=== PATIENT | female | born 1955 | race Caucasian/White ===

== ENCOUNTER → 2016-02-29 | Outpatient (CLI) | payer BC ==
[~2016-02-29] MED LIST: DIPH-296 PO; FEXO5TAB2 PO; METO25TA3 PO; NTRGSL/4 UT; PANT40TA PO; SIMV20TA2 PO
--- NOTE | 2016-03-01 12:41 | MAMMOGRAPHY REPORT ---
BILATERAL DIGITAL SCREENING MAMMOGRAM TOMOSYNTHESIS WITH CAD: 02/29/2016 CLINICAL HISTORY: Routine screening. Patient has no complaints. TECHNIQUE: Breast tomosynthesis in addition to standard 2D mammography was performed. Current study was also evaluated with a Computer Aided Detection (CAD) system. COMPARISON: Comparison is made to exams dated: 02/26/2015 mammogram, 09/17/2013 ultrasound, 09/17/2013 mammogram, 03/07/2013 ultrasound, 03/07/2013 mammogram, and 09/13/2012 mammogram - [facility]. BREAST COMPOSITION: There are scattered areas of fibroglandular density in both breasts. FINDINGS: There are benign-appearing coarse and rim calcifications bilaterally. A 9 mm mass in the upper outer posterior right breast is unchanged in size based on prior mammograms dating back to , and also likely 2006. With greater than 5 years of stability it is considered benign. The re are stable asymmetries in the medial left breast and medial right breast. No new suspicious mass , architectural distortion or cluster of microcalcifications is seen. IMPRESSION: ACR BI-RADS CATEGORY 1: NEGATIVE There is no mammographic evidence of malignancy. A 1 year screening mammogram is recommended. The p atient will receive written notification of the results. Approximately 10% of breast cancers are not detected with mammography. A negative mammographic repor t should not delay biopsy if a clinically suggestive mass is present. Jen Rock M.D. ay/:02/29/2016 21:51:36 Melter Supervisor [employer]: Carmen Mitchell, [facility] letter sent: Normal 1/2 BI-RADS Code: ACR BI-RADS Category 1: Negative
== END | disposition home or self-care (01) ==
LOC: C.MAMM 14:34
PROVIDERS: ATTEND Obstetrics & Gynecology
DX: Z12.31 Encounter for screening mammogram for malignant neoplasm of breast (principal)

== ENCOUNTER → 2016-06-21 | Outpatient (CLI) | payer BC ==
[2016-06-21 09:45] LABS: CALCIUM 9.1 mg/dl (8.5-10.1)
[2016-06-21 09:49] LABS: ALT/SGPT 27 U/L (12-78); AST/SGOT 8 U/L (15-37); BLOOD UREA NITROGEN 11 mg/dl (7-18); BUN/CREATININE RATIO 21.3 (10-20); CARBON DIOXIDE 27 mmol/L (21-32); CHLORIDE 106 mmol/L (98-107); CHOLESTEROL 113 mg/dl (0-200); CREATININE 0.52 mg/dl (0.60-1.20); GLUCOSE 96 mg/dl (70-99); MAGNESIUM 2.4 mg/dl (1.8-2.4); SODIUM 143 mmol/L (136-145); TRIGLYCERIDES 70 mg/dl (0-150); VERY LOW DENSITY LIPOPROT CALC 14 mg/dl
[2016-06-21 09:59] LABS: ALB/GLOB RATIO 1.7 (0.9-2); ALKALINE PHOSPHATASE 68 U/L (45-117); CHOLESTEROL/HDL RATIO 1.8; HDL CHOLESTEROL 64 mg/dl; LDL CHOLESTEROL CALCULATED 35 mg/dl
== END | disposition home or self-care (01) ==
LOC: C.LAB1850 07:02
PROVIDERS: ATTEND Nurse Practitioner Adult Health
DX: Z00.00 Encounter for general adult medical examination without abnormal findings (principal); Z11.59 Encounter for screening for other viral diseases; E78.5 Hyperlipidemia, unspecified; I25.10 Atherosclerotic heart disease of native coronary artery without angina pectoris; I10 Essential (primary) hypertension; Z79.899 Other long term (current) drug therapy; Z51.81 Encounter for therapeutic drug level monitoring

== ENCOUNTER → 2017-04-14 | Outpatient (CLI) | payer BC ==
[~2017-04-14] MED LIST changes: -METO25TA3 PO; +METO25TA4 PO
--- NOTE | 2017-04-17 08:07 | MAMMOGRAPHY REPORT ---
BILATERAL DIGITAL SCREENING MAMMOGRAM TOMOSYNTHESIS WITH CAD: 04/14/2017 CLINICAL HISTORY: Routine screening. Patient has no complaints. TECHNIQUE: Breast tomosynthesis in addition to standard 2D mammography was performed. Current study was also evaluated with a Computer Aided Detection (CAD) system. COMPARISON: Comparison is made to exams dated: 02/29/2016 mammogram, 02/26/2015 mammogram, 09/17/2013 ult rasound, 09/17/2013 mammogram, 03/07/2013 ultrasound, and 03/07/2013 ultrasound - [facility]. BREAST COMPOSITION: There are scattered areas of fibroglandular density in both breasts. FINDINGS: A circumscribed and lobulated 10 mm mass in the upper outer posterior right breast appears stable in size dating back to at least 2007, therefore likely benign. There are new coarse calcifica tions associated with the mass, suggesting it may represent a benign degenerating fibroadenoma. No n ew suspicious mass, architectural distortion or cluster of suspicious microcalcifications is seen. IMPRESSION: ACR BI-RADS CATEGORY 1: NEGATIVE There is no mammographic evidence of malignancy. A 1 year screening mammogram is recommended. The pa tient will receive written notification of the results. Approximately 10% of breast cancers are not detected with mammography. A negative mammographic report should not delay biopsy if a clinically suggestive mass is present. Jen Rock M.D. ay/:04/14/2017 16:49:23 Rotary Helper: Carmen CARBAJAL(Dc)(Venu), [facility] letter sent: Normal 1/2 BI-RADS Code: ACR BI-RADS Category 1: Negative
== END | disposition home or self-care (01) ==
LOC: C.MAMM 09:50
PROVIDERS: ATTEND Obstetrics & Gynecology
DX: Z12.31 Encounter for screening mammogram for malignant neoplasm of breast (principal)

== ENCOUNTER → 2017-09-19 | Outpatient (CLI) | payer BC ==
[2017-09-19 09:36] LABS: BASO % 0.5 %; BASO ABS # 0.02 K/uL (0-0.2); EOS % 2.6 %; EOS ABS # 0.11 K/uL (0-0.5); HEMATOCRIT 40.4 % (37-47); HEMOGLOBIN 12.6 g/dL (12.0-16.0); IG# 0.01 K/uL (0.00-0.02); LYMPH % 32.8 %; LYMPH ABS # 1.37 K/uL (1.2-3.4); MEAN CELL VOLUME 72.9 fL (80-100); MEAN CORPUSCULAR HEMOGLOBIN 22.7 pg (25-34); MEAN CORPUSCULAR HGB CONC 31.2 g/dl (32-36); MONO % 10.3 %; MONO ABS # 0.43 K/uL (0.11-0.59); NEUT % 53.6 %; NEUT ABS # 2.24 K/uL (1.4-6.5); PLATELET COUNT 190 K/uL (130-400); RED CELL DISTRIBUTION WIDTH CV 13.8 % (11.5-14.5); RED CELL DISTRIBUTION WIDTH SD 36.5 fL (36.4-46.3); WHITE BLOOD COUNT 4.18 K/uL (4.8-10.8)
== END | disposition home or self-care (01) ==
LOC: C.LAB1850 07:12
PROVIDERS: ATTEND Internal Medicine Cardiovascular Disease
DX: D64.9 Anemia, unspecified (principal); I25.10 Atherosclerotic heart disease of native coronary artery without angina pectoris

== ENCOUNTER 2021-05-21 05:08 | Observation (INO) ==
--- NOTE | 2021-04-27 15:15 | PAT Medication Instructions ---
Medication Instructions Date of Service April 27, 2021 Home Medications Medication Instructions Recorded atorvastatin 10 mg tablet 10 mg PO HS #90 tab 09/28/20 pantoprazole 40 mg tablet,delayed 40 mg PO QAM #90 tab 10/12/20 release metoprolol succinate 25 mg 12.5 mg PO HS #45 tab 10/19/20 tablet,extended release 24 hr lifitegrast 5 % eye drops in a dropperette (Xiidra) 1 drp OPHTHALMIC (EYE) BID mecobalamin (vitamin B12) 1,000 mcg disintegrating tablet,sublingual 1,000 mcg PO 3XWK atorvastatin 10 mg tablet 10 mg PO HS cholecalciferol (vitamin D3) 25 mcg (1,000 unit) capsule 25 mcg PO QAM pantoprazole 40 mg tablet,delayed release 40 mg PO QAM metoprolol succinate 25 mg tablet,extended release 24 hr 12.5 mg PO HS ferrous sulfate 325 mg (65 mg iron) tablet (iron) 325 mg PO 3XWK azelastine 205.5 mcg (0.15 %) nasal spray 2 spray INTRANASAL HS cholestyramine-aspartame 4 gram oral powder (Cholestyramine Light) 4 g PO QAM clopidogrel 75 mg tablet 75 mg PO QAM dicyclomine 10 mg capsule 10 mg PO HS ASK your prescriber and surgeon clopidogrel 75 mg tablet 75 mg PO QAM (must be off Plavix for at least 7 days in order to get spinal anesthesia) STOP taking 48 hours before surgery cholestyramine-aspartame 4 gram oral powder (Cholestyramine Light) 4 g PO QAM DO NOT take the morning of surgery mecobalamin (vitamin B12) 1,000 mcg disintegrating tablet,sublingual 1,000 mcg PO 3XWK cholecalciferol (vitamin D3) 25 mcg (1,000 unit) capsule 25 mcg PO QAM ferrous sulfate 325 mg (65 mg iron) tablet (iron) 325 mg PO 3XWK Take morning of surgery With a small sip of water, OTHERWISE NOTHING TO EAT OR DRINK AFTER MIDNIGHT: lifitegrast 5 % eye drops in a dropperette (Xiidra) 1 drp OPHTHALMIC (EYE) BID pantoprazole 40 mg tablet,delayed release 40 mg PO QAM Take evening before surgery lifitegrast 5 % eye drops in a dropperette (Xiidra) 1 drp OPHTHALMIC (EYE) BID atorvastatin 10 mg tablet 10 mg PO HS metoprolol succinate 25 mg tablet,extended release 24 hr 12.5 mg PO HS azelastine 205.5 mcg (0.15 %) nasal spray 2 spray INTRANASAL HS dicyclomine 10 mg capsule 10 mg PO HS Other Notes If you have any questions please call us at [phone] or [phone] or [phone] or [phone]
--- NOTE | 2021-05-03 08:43 | Anesthesiology Consultation ---
Date of Service May 03, 2021 Assessment & Plan (1) Encounter for pre-operative examination: Chart Review Chart Review: Acceptable Risk for Surgery (pending preop Covid testing results ) and Patient NOT seen in Pre Admission Testing Pt is still trying to decide with surgeon's office whether she would like inpatient or outpatient for TKA. Upon discussion with Dr. Horton- patient is an acceptable candidate for [facility] from anesthesia perspective. Pending patient is motivated, has good support and surgeon's office completes [facility] preop requirements- patient may proceed with outpatient TKA. Per PAT appt on 04/29/21, patient denies any recent travel or large group activities. No known Covid positive exposures or Covid related symptoms. No known Covid infection in the past 90 days. Pt is vaccinated for Covid. Preop Covid testing scheduled 05/19/21 = will await results. Educated on importance of self quarantining, social distancing and wearing mask in public for the patient one week prior to surgery and after Covid testing done Pt last seen by cardio 09/28/20= seen for follow up. The patient is stable from a cardiovascular standpoint. She demonstrates excellent control of her blood pressure and lipid values. She was commended on her walking program. Her coronary artery disease remains quiescent on current medical regimen.F/u in one year Teaching & Discussion Pre-Anesthesia Teaching/Discussion Notes: Instructed NPO after midnight before surgery,except medications with 15 cc of water. Medication instructions provided according to the PAT guidelines. History Surgery Operation Date: 05/21/21 07:00 Proposed Procedures p OP: Right Total Knee Arthroplasty - Elian Tellez MD Height/Weight Height: 5 ft 3 in Weight: 65.4 kg Allergies Allergy/AdvReac Type Severity Reaction Status Date / Time morphine AdvReac Intermediate N/V; Verified 05/03/21 08:42 difficult to lift head Medications Home Medications Medication Instructions Recorded Confirmed Last Taken lifitegrast 5 % eye drops in a 1 drp OPHTHALMIC (EYE) BID 01/25/18 04/27/21 02/05/18 dropperette (Xiidra) mecobalamin (vitamin B12) 1,000 1,000 mcg PO 3XWK tab 02/08/19 04/27/21 Unknown mcg disintegrating tablet,sublingual atorvastatin 10 mg tablet 10 mg PO HS #90 tab 09/28/20 04/27/21 Unknown cholecalciferol (vitamin D3) 25 25 mcg PO QAM 09/28/20 04/27/21 Unknown mcg (1,000 unit) capsule pantoprazole 40 mg tablet,delayed 40 mg PO QAM #90 tab 10/12/20 04/27/21 Unknown release metoprolol succinate 25 mg 12.5 mg PO HS #45 tab 10/19/20 04/27/21 Unknown tablet,extended release 24 hr ferrous sulfate 325 mg (65 mg 325 mg PO 3XWK 03/09/21 04/27/21 Unknown iron) tablet (iron) azelastine 205.5 mcg (0.15 %) 2 spray INTRANASAL HS 04/27/21 04/27/21 Unknown nasal spray cholestyramine-aspartame 4 gram 4 g PO QAM 04/27/21 04/27/21 Unknown oral powder (Cholestyramine Light) clopidogrel 75 mg tablet 75 mg PO QAM 04/27/21 04/27/21 Unknown dicyclomine 10 mg capsule 10 mg PO HS 04/27/21 04/27/21 Unknown Past Medical History Medical History (Updated 05/03/21 @ 09:09 by Leilani Bone PA-C) CAD (coronary artery disease) S/p LAD stent Dec 2003- Follows with Dr Gregorio Not on ASA due to GI issues/ulcers- on Plavix per cardio Dry eye GERD (gastroesophageal reflux disease) Well controlled and stable Hyperlipidemia Per cardio records Hypertension Per cardio records- pt denies IBS (irritable bowel syndrome) Post cholecystectomy syndrome Low iron On iron supplement Giron neuroma Right side Myocardial Infarction 2003 Pre-diabetes Stable Renal calculi HX - no recent issues Vestibular neuronitis of right ear Stable - occ balance issues Exercise / Class Metabolic Activity II 4-5 Yardwork/Stairs/Walk up hill (one flight of stairs - no chest pain or SOB ) Past Family History Family History Family/Other Myocardial infarction Grandmother (Maternal) Heart disease Cancer Mother Heart disease Other Family history of diabetes mellitus Denies family history of Ovarian cancer Prostate cancer Breast cancer Colorectal cancer Past Surgical History Surgical History History of adenoidectomy History of cardiac cath 2004 - [place] - [facility] - 1 STENT - FOLLOWS W/ DR. GREGORIO History of colonoscopy History of ERCP History of heart artery stent X 1 (2003) History of hysterectomy History of removal of cyst Rt thumb - 03/06/2019 [facility] [place] History of tonsillectomy Hx laparoscopic cholecystectomy Laparoscopic Cholecystectomy Dr. Patterson 04/25/2020 Past Anesthesia History No Hx of Anesthesia Complications and No Family Hx of Anesthesia Complications History of PONV No Hx of PONV and No Hx of Motion Sickness Social History Smoking Status: Never smoker Do You Dip or Chew Tobacco: No Hx Alcohol Use: Yes Alcohol type: beer and wine alcohol intake frequency: other Alcohol Intake Frequency Comment: ONE DRINK A WEEK Hx Substance Use: No substance use type: does not use Review of Systems Hx of blood transfusions s/p [place] (2003) Patient denies chest pain, shortness of breath, dyspnea on exertion, cough, wheezing, palpitations. No hx of seizures, stroke, apnea/snoring. No hx of blood clots. Physical Exam Vital Signs VITALS BP 129/81 P 83 TEMP 97.8 SP02 95% RESP 16 Constitutional no acute distress ENMT Mouth: no TMJ clicking Thyromental Distance: > or= 3.5 Finger Breadths (3.5) Mallampati Class: II Crowns on molars, side teeth, front teeth Permanent bridge right teeth Neck + limited neck extension (minimal ) Respiratory normal respiratory effort; no respiratory distress Auscultation: lungs clear to auscultation bilaterally; no wheezes Cardiovascular Rate/Rhythm: regular rate and regular rhythm Heart Sounds: no murmur Vessels: no carotid bruit Musculoskeletal Spine: no pain with cervical ROM Extremities: extremities normal to inspection Psychiatric Orientation: alert Lab Results Anesthesia Preop Results Results Anesthesia Widget: WBC 3.77 K/uL (4.8-10.8) L 05/03/21 Hgb 12.8 g/dL (12.0-16.0) 05/03/21 Hct 40.1 % (37-47) 05/03/21 Plt 177 K/uL (130-400) 05/03/21 Na 143 mmol/L (136-145) 05/03/21 K 4.1 mmol/L (3.5-5.1) 05/03/21 Cl 109 mmol/L (98-107) H 05/03/21 CO2 27 mmol/L (21-32) 05/03/21 BUN 15 mg/dl (6-23) 05/03/21 Creat 0.62 mg/dl (0.6-1.2) 05/03/21 Glucose Level 99 mg/dl (70-99(Fasting)) 05/03/21 PT 11.3 Seconds (9.0-12.0) 05/03/21 PTT 25.4 Seconds (21.0-31.0) 05/03/21 INR 1.1 (0.9-1.1) 05/03/21 HA1c 5.5 % (4.5-5.6) 05/03/21 Blood Type O Positive 05/03/21 Antibody Screen NEGATIVE 05/03/21 Testing Electrocardiogram Date: 05/03/21 Sinus rhythm with PACs at 70 bpm. Nonspecific T wave abnormality. Compared with EKG from April 251PACs are now present per cardiology. Chest X-Ray Date: 05/03/21 Findings: + NAD
--- NOTE | 2021-05-15 12:54 | History and Physical Report ---
DATE OF ADMISSION: 05/21/2021 CHIEF COMPLAINT: Persistent right knee pain and discomfort. HISTORY OF PRESENT ILLNESS: The patient is a 65-year-old fairly active female who has had a long his tory of right knee pain and discomfort. I have been treating her over the years with injections, whi ch have become less successful over time. The pain has become more debilitating. It is global pain. The more she is up and on it, the more it hurts. She was actually scheduled for surgery earlier, b ut canceled due to the COVID epidemic. We put this off. She continues to be limited by the global p ain. She would like to have her knee fixed. PAST MEDICAL HISTORY: Significant for: 1. Coronary artery disease, status post cardiac stent placement, on Plavix. 2. Gastroesophageal reflux disease. 3. Kidney stones. 4. Elevated cholesterol. 5. Chronic back pain. 6. Anxiety. PAST SURGICAL HISTORY: Includes: 1. Tonsillectomy. 2. Cardiac catheterization and stent placement. 3. Hysterectomy. 4. Hand surgery. 5. Cholecystectomy. ALLERGIES: None. CURRENT MEDICATIONS: 1. Plavix. 2. ____statin. 3. Vitamin D3. 4. ____. 5. Colestipol. 6. Iron. 7. ____ eye drops. 8. Vitamin B12. 9. Metoprolol. 10. Pantoprazole. SOCIAL HISTORY: A 65-year-old female. She is . Does not smoke. Two drinks per week. FAMILY HISTORY: Noncontributory. REVIEW OF SYSTEMS: Negative for diabetes, neurologic problem, vascular problems or bleeding disorder s. Denies any current chest pain or shortness of breath. She does have a history of cardiac stent p laced. PHYSICAL EXAMINATION: GENERAL: Shows a pleasant, healthy middle-aged female. Looks to be in excellent health. HEENT: Benign. NECK: Supple. No lymphadenopathy. LUNGS: Clear to auscultation. HEART: Has a regular rate and rhythm. ABDOMEN: Soft, nontender, nondistended. EXTREMITIES: Grossly neurovascularly intact except as follows: Examination of the right knee reveal s the patient walks with a slight bit of a limp. She has varus alignment to her knee with a bit of a varus thrust. Her knee is fairly stiff with a 10-degree flexion contracture and only bends to about 110 degrees. No pain with hip motion. X-RAYS: X-rays of the right knee are reviewed. It shows advanced right knee DJD. She has complete loss of her medial joint space. She has subchondral sclerosis. She got osteophytes both medially an d laterally. She also has some chondrocalcinosis. ASSESSMENT: A 65-year-old white female with multiple medical comorbidities including coronary artery disease, status post stent placement, gastroesophageal reflux disease, kidney stones, elevated michelle sterol, chronic back pain and anxiety with advanced right knee degenerative joint disease. She has f terrie conservative measures. She would like to proceed with right knee replacement. PLAN: We will proceed with a right knee replacement. The risks and benefits of this procedure were explained to the patient and include but not limited to DVT, PE, , infection, neurological injur y, vascular injury, bleeding problem, pain, limited range of motion, stiffness, failure to relieve he r symptoms, incomplete relief of symptoms, need for further surgery in the future, etc. The patient understands and desires to proceed. Informed consent was obtained. She is aware to stop the Plavix a week preop. She will take metoprolol with a sip of water on the mo rning of surgery. She is planning to be discharged to home using [facility] program. She is contemplating doing this as an outpatient, but has not made a final decision on this yet. I cert ainly think she is an acceptable candidate from that standpoint. Job ID: [id number]
[2021-05-21] MEDS ORDERED: METOCLOPRAMIDE HCL 10 MG TABLET PO SCH (06:00)
[2021-05-21] MEDS ORDERED: LR 500ML BOLUS, THEN 15ML/HR IV SCH (06:00)
[2021-05-21] MEDS ORDERED: ACETAMINOPHEN 500 MG TAB PO SCH (06:00)
[2021-05-21] MEDS ORDERED: Scopolamine 1 MG TDSY TD SCH (06:00)
[2021-05-21] MEDS ORDERED: ceFAZolin 2000MG 2,000 MG/15 ML SYR IV SCH (06:00)
[2021-05-21] MEDS ORDERED: BUPIVACAINE LIPOSOME/PF 266 MG, BUPIVACAINE/EPINEPHRINE 50 ML, SODIUM CHLORIDE 0.9% 30 ... INFIL SCH (06:00)
[2021-05-21] MEDS ORDERED: FAMOTIDINE 20 MG TAB PO SCH (06:00)
[2021-05-21] MEDS ORDERED: GABAPENTIN 300 MG CAP PO SCH (06:00)
[2021-05-21] MEDS ORDERED: TRANEXAMIC ACID 1,000 MG **IV Intra-op IV SCH (06:00)
[2021-05-21] MEDS ORDERED: LR 60ML/HR IV SCH (06:00)
[2021-05-21] MEDS ORDERED: EPINEPHrine INJ 1 MG/ML AMP ONE (06:24)
[2021-05-21] MEDS ORDERED: ROPIVACAINE 0.5% 5 MG/ML 30 ML VIAL ONE (06:24)
[2021-05-21] MEDS ORDERED: BUPIVACAINE 0.5 % 5 MG/1 ML PF 10ML VIAL ONE (06:24)
[2021-05-21] MEDS ORDERED: SODIUM CHLORIDE 0.9% PF 50 ML VIAL ONE (06:39)
[2021-05-21] MEDS ORDERED: BUPIVACAINE/EPINEPHRINE 0.25% 1:200,000 30 ML VIAL ONE (06:39)
[2021-05-21] MEDS ORDERED: BUPIVACAINE LIPOSOME 1.3% 266 MG/20 ML VIAL ONE (06:40)
[2021-05-21] MEDS ORDERED: fentaNYL citrate 100 MCG/2 ML VIAL ONE (06:41)
[2021-05-21] MEDS ORDERED: MIDAZOLAM HCL 1 MG/ML 2ML VIAL ONE (06:41)
--- NOTE | 2021-05-21 06:52 | History & Physical Bridge Note ---
Date of Service May 21, 2021 History & Physical Bridge Note I have examined the patient, reviewed the History & Physical and in the interval since the performance of the History & Physical I have noted the following changes of clinical significance: no changes noted
[2021-05-21] MEDS ORDERED: MEPIVACAINE HCL 1.5% 30 ML VIAL ONE (07:07)
[2021-05-21] MEDS ORDERED: PROPOFOL IV EMULSION 10 MG/ML 20 ML VIAL IV ONE (07:26)
[2021-05-21] MEDS ORDERED: ONDANSETRON INJ 2 MG/ML 2 ML VIAL ONE (07:55)
[2021-05-21] MEDS ORDERED: ePHEDrine sulfate 50 MG/ML AMP ONE (07:57)
[2021-05-21] MEDS ORDERED: HYDROmorphone HCL 2 MG TAB PO PRN ×2 (08:40→16:17)
[2021-05-21] MEDS ORDERED: ePHEDrine sulfate 50 MG/ML AMP IV PRN (08:44)
[2021-05-21] MEDS ORDERED: ATROPINE SULFATE 0.1 MG/ML 10ML SYR IV PRN (08:44)
--- NOTE | 2021-05-21 08:52 | Operative Report ---
PG Post Operative Report Pre & Post Diagnosis Operation Date: 05/21/21 07:00 Pre-Op Diagnosis: Right Knee Advanced Degenerative Joint Disease Post-Op Diagnosis: Right Knee Advanced Degenerative Joint Disease I identified the patient and participated in the time-out.: Yes Procedure Operation Date: 05/21/21 07:00 Actual Procedures p Right Total Knee Arthroplasty(Right) - Elian Tellez MD Surgeon Elian Tellez MD Economic Manager Santos Soriano PA-C Estimated Blood Loss 50 Findings Consistent with Post-Op Diagnosis Operative findings were advanced right knee DJD. Just she had extensive grade 4 [id number] primarily in the medial compartment with eburnation of the entire compartment. She had osteophytes primarily medially. Moderate-sized joint effusion. Fixed varus deformity to her knee. Fluids 1250 cc Specimens Right knee sent for pathology Anesthesia Type Spinal MAC Complications none Disposition Accompanied Patient To Recovery: No Indications Patient is 65-year-old female has had a long history of right knee pain discomfort describes gotten worse over time. She been through extensive conservative treatment which became less successful over time. She Dexopin scheduled for knee replaced on several occasions but canceled due to the Covid epidemic. She now presents for surgical management. Description of Procedure Operative implants consist of: 1 Biomet Vanguard size 65 right posterior stabilized femoral component. 2. Size 71 tibial tray. 3. 10 mm posterior stabilized polyethylene insert. 4. 31 x 8 all polypatella. The patient was taken to the operating, identified, and placed on the operating room table in supine position protectors were properly padded. IV antibiotics 5 by anesthesia team. A right thigh turn was then placed. The right lower extremities then prepped and draped in usual sterile fashion. The right leg was elevated exsanguinated with use of an Esmarch in tourniquet was set at 300 mmHg. An anterior approach to the right knee was then performed through longitudinal incision centered over the patella. Sharp dissection carried through subcutaneous this down the extensor mechanism. A medial parapatellar arthrotomy incision was made. Some subperiosteal dissection carried out medially. The fat pad was resected from each patella tendon. Lateral patellofemoral ligament was released. Patella subluxated laterally and the knee was flexed. The osteophytes taken out distal femur. ACL was chronically absent. The PCL were then was released from the distal femur and the tibia subluxated anteriorly. The external tibial alignment jig was then placed in the interface the tibia and adjusted 14 mm medially. Proximal tibial cut was made remove about a millimeter bone from most deficient aspect medial till plateau. Some osteophytes were taken off medial and posterior medially. Tibia sized to a size 71. Attention drawn the femur. The distal femur was then with a sharp drill. Intramedullary canal was suction. A right 5 degree valgus cutting guide was placed. The distal femoral cutting block was pinned in place. Distal femoral cut was made to take an additional 3 mm of bone off distal femur. The femur was then sized to a size 65. We did downsize this almost an entire size due to the very narrow medial and lateral dimensions of her femur. The AP cutting guide was set parallel to the epicondylar axis which was 3 degrees of external rotation. The anterior cut, anterior chamfer, posterior cut, posterior chamfer cuts were made. The box cutting guide was placed in just slight lateral box cut was made. The knee was flexed. The remnants of the medial and lateral menisci were excised. The osteophytes taken off the posterior aspect of femur. A trial femoral component was placed. The tibial tray was pinned in maximum external rotation and the drill and stem punch were used to create defect in proximal tibia for the tibial tray. The knee was then trialed the 10 mm insert fit most appropriately. Attention drawn the patella. The patella was cleaned of all soft tissues. Patella thickness measured 22 mm in thickness. It was cut down to 14. Was sized to a size 31 patella. The lug holes were drilled for the 31 patella. The lateral osteophyte was removed. Patella button was placed. Knee was taken through range of motion patella tracked nicely with no thumbs test. Attention drawn to place the permanent components. All trial components were removed. Bone plug was placed in the distal femur limit blood loss. Double batch Palacos G cement was mixed. Biomet Vanguard size 65 right posterior stabilized femoral component, size 71 tibial tray, 10 mm posterior stabilized polyethylene insert, and a 31 x 8 all polypatella were then cemented in place. The knee was brought out into full extension total cement hardened. Final cement check was then performed. Pericapsular tissues were injected with total 100 cc of combination of 20 cc of Exparel, 30 cc normal saline, 50 cc of quarter percent Marcaine with epinephrine. Patient did receive 1 g tranexamic acid. The tourniquet was let down for final turn time 54 minutes. Hemostasis surgeons electrocautery. Extensor mechanism then closed with combination 1 PDS suture #1 Vicryl suture in [id number] fashion. Extensor mechanism checked found to be intact with subcutaneous tissue then closed with 2 Dexon suture in a buried interrupted fashion. Skin was then closed with skin cherie. Legs then cleaned and dried a sterile dressing with Xeroform, 4 x 4's, sterile cast padding, Agustin bandage were applied. Patient was then transferred to the recovery in stable condition. Patient tolerated procedure well and there were no complications. Santos Soriano, my physician assistant buyer, was present for the entire procedure. His assistance was essential and required for appropriate patient positioning, prepping and draping, surgical exposure, performing the technical details of the operation, placement the implants, closure of the wound, and placement of the sterile bandage. I attest to the content of the Intraoperative Record and any orders documented therein. Any exceptions are noted below.
[2021-05-21] MEDS ORDERED: ceFAZolin 1000MG 1,000 MG/7.5 ML SYR IV ONE (09:00)
--- NOTE | 2021-05-21 09:17 | Anesthesiology Progress Note ---
Date of Service May 21, 2021 Anesthesia Post Procedure Vital Signs Vital Signs: Temp Pulse Pulse Resp BP Pulse Ox 05/21/21 09:10 36.4 C L 88 16 126/77 92 05/21/21 09:00 88 16 113/73 95 05/21/21 08:50 89 16 124/73 92 05/21/21 08:44 36.3 C L 93 H 12 118/77 91 05/21/21 05:34 36.7 C 73 18 151/92 H 97 Pain Intensity Right Knee: Pain Intensity: 0 Transfer of Care Handoff Completed per policy Notes Mental Status: alert / awake / arousable Patient Amnestic to Procedure: Yes Nausea / Vomiting: adequately controlled Pain: adequately controlled Airway Patency, RR, SpO2: stable & adequate BP & HR: stable & adequate Hydration State: stable & adequate Neuraxial Anesthesia: was administered and sensory block is resolving Anesthetic Complications: no major complications apparent
--- NOTE | 2021-05-21 09:41 | XRay Report ---
RIGHT KNEE 2 VIEWS History: Right total knee arthroplasty. Degenerative arthritis. Postop. FINDINGS: The patient is status post a right total knee arthroplasty. The hardware is intact. No frac ture or dislocation. Skin cherie and surgical drains are in place. IMPRESSION: Right total knee arthroplasty. No evidence for hardware complication. ACT 112: Negative or not required by law. Electronically signed by: Alec Rodriguez M.D. 05/21/2021 9:38 AM
[2021-05-21] MEDS ORDERED: bisacodyL 10 MG SUPP PR PRN (16:17)
[2021-05-21] MEDS ORDERED: SODIUM CHLORIDE 0.9% 1000ML 1,000 ML IV SCH (16:17)
[2021-05-21] MEDS ORDERED: METOCLOPRAMIDE HCL INJ 5 MG/ML 2 ML VIAL IV PRN (16:17)
[2021-05-21] MEDS ORDERED: ALUMINUM/MAGNESIUM SUSP 30 ML UDC PO PRN (16:17)
[2021-05-21] MEDS ORDERED: ONDANSETRON INJ 2 MG/ML 2 ML VIAL IV PRN (16:17)
[2021-05-21] MEDS ORDERED: NALOXONE HCL 0.4 MG/1 ML VIAL/CARP IV PRN (16:17)
[2021-05-21] MEDS ORDERED: MAGNESIUM HYDROXIDE SUSP 30 ML UDC PO PRN (16:17)
[2021-05-21] MEDS ORDERED: ONDANSETRON 4 MG OD TAB PO PRN (16:33)
[2021-05-21] MEDS: Scopolamine CHECK PATCH PLACEMENT SCH ×2 (17:22→23:52)
[2021-05-21] MEDS: ASCORBIC ACID 500 MG TAB PO SCH (17:30)
[2021-05-21] MEDS: KETOROLAC TROMETHAMINE 15 MG/ML VIAL IV SCH (17:31)
[2021-05-21] MEDS: DOCUSATE SODIUM 100 MG CAP PO SCH (20:20)
[2021-05-21] MEDS: TAPENTADOL HCL ER 50 MG TABCR PO SCH (20:27)
[2021-05-21] MEDS ORDERED: TRANEXAMIC ACID / 0.7% NACL 1,000 MG/100 ML BAG IV SCH (20:30)
[2021-05-21] MEDS ORDERED: AZELASTINE HCL 0.1% NASAL 200 SPRAYS/27,400 MCG BTL SCH (21:00)
[2021-05-21] MEDS ORDERED: METOPROLOL SUCC 25MG EXT REL TAB PO SCH (21:00)
[2021-05-21] MEDS ORDERED: SENNA 8.6 MG TAB PO SCH (21:00)
[2021-05-21] MEDS ORDERED: DICYCLOMINE HCL 10 MG CAP PO SCH (21:00)
[2021-05-21] MEDS ORDERED: ATORVASTATIN 10 MG TAB PO SCH (21:00)
[2021-05-21] MEDS: ACETAMINOPHEN 500 MG TAB PO SCH (22:36)
[2021-05-21] MEDS: ceFAZolin 1000MG 1,000 MG/7.5 ML SYR IV SCH (22:36)
[2021-05-21] MEDS: XIIDRA: ORDER AWAITING ACTION SCH (23:52)
[2021-05-22] MEDS: KETOROLAC TROMETHAMINE 15 MG/ML VIAL IV SCH
[2021-05-22] MEDS ORDERED: LACTATED RINGER'S 1,000 ML IV ONE (00:11)
[2021-05-22] MEDS ORDERED: LACTATED RINGER'S 500 ML IV ONE (01:30)
[2021-05-22 01:56] LABS: Hematocrit (blood only) 26.9 % (37-47); Hemoglobin 8.6 g/dL (12.0-16.0); Mean Corpuscular Hemoglobin 23.6 pg (25-34); Mean Corpuscular Volume 73.9 fL (80-100); Mean Platelet Volume 9.6 fL (7.4-10.4); Platelet Count 127 K/uL (130-400); RDW Coefficient of Variation 13.8 % (11.5-14.5); RDW Standard Deviation 37.8 fL (36.4-46.3); Red Blood Count 3.64 M/uL (4.2-5.4); White Blood Count 5.96 K/uL (4.8-10.8)
[2021-05-22 02:14] LABS: BUN Creatinine Ratio 21.3 (10-20); Calcium 7.8 mg/dl (8.5-10.1); Creatinine Clr Calc Pharmacy 81.7 ml/min; Est GFR (African American) 108.7 ml/min; Est GFR (Non-African American) 93.8 ml/min; Potassium 3.8 mmol/L (3.5-5.1)
[2021-05-22 02:30] LABS: Basophils # (auto) 0.01 K/uL (0-0.2); Basophils % (auto) 0.2 %; Eosinophils # (auto) 0.03 K/uL (0-0.5); Eosinophils % (auto) 0.5 %; Lymphocytes # (auto) 0.73 K/uL (1.2-3.4); Lymphocytes % (auto) 12.2 %; Monocytes # (auto) 0.82 K/uL (0.11-0.59); Monocytes % (auto) 13.8 %; Neutrophils # (auto) 4.37 K/uL (1.4-6.5); Neutrophils % (auto) 73.3 %; Polychromasia 1+
--- NOTE | 2021-05-22 03:00 | Hospitalist Consultation ---
Date of Consultation May 22, 2021 Assessment & Plan (1) Hypotension: 65 y/o F w/ CAD (s/p stent), HTN, anxiety who is POD1 s/p R total knee arthroplasty and presents w/ hypotension most likely secondary to acute blood loss anemia. Asymptomatic. - overnight, MAP in low 60s despite 1.5L fluid boluses, w/ low of 58 - transient desat to 85% on room air, improved on 2L; follow volume status - Hb of 8.6 consistent w/ blood loss as baseline was 12.8 last month. - Given CAD, transfusion threshold of 8, but w/ the concerning MAP, tranfusing 1u prbc - Held narcotic pain medications while MAP was ~60, but restarted w/ more recent BP of 94/61. - Per reported hx of peptic ulcer, NSAIDs contraindicated (2) CAD (coronary artery disease): - stable, continue home regimen (3) Anxiety: - continue home regimen (4) Status post knee replacement: - reassuring external exam. no paresthesias (5) Post-cholecystectomy syndrome: - continue home regimen of bile acid sequestrants FEN/GI: regular diet ppx: scds. defer chemoppx to ortho code: full dispo: med/surg Supervising Physician Co-Signing Physician Notes Attending addendum: I have supervised the medical residents activities, and agree with the H&P unles s as otherwise noted. Assessment and Plan: Postop hypotension/CAD/stented coronary artery/hypertension- hemoglobin 8.6, from preop 12.8, with MAP in the low 60s, and transient hypoxia with pulse ox 85% on room air, improved on 2 L to mid 90s Given 1.5 L fluid bolus of lactated Ringer's Hold narcotic medications until MAP improved Transfuse 1 unit PRBCs Repeat H&H in a.m. Metoprolol succinate with hold parameters Status post right total knee arthroplasty- Per primary service Remaining orders and notations as noted History of Present Illness Reason for Consultation: Post op management Requesting Physician: Dr. Tellez Attending Physician: Elian Tellez MD History of Present Illness 65 y/o F w/ anxiety, HTN, and CAD who is s/p R total knee arthroplasty on 2. She had chronic R knee pain x 3 years. Xray suggested arthritis. She has trialed cortisone injections. Severe knee pain during exercise and ambulation, limiting her activities. Denied paresthesias. She denies hx of bleeding disorders or VTE. Current knee pain: 4-5/10. Exacerbates to 09/29. Allergies Allergy/AdvReac Type Severity Reaction Status Date / Time morphine AdvReac Intermediate N/V; Verified 05/21/21 05:31 difficult to lift head Home Medications Medication Instructions Recorded Confirmed Type lifitegrast 5 % eye drops in a 1 drp OPHTHALMIC (EYE) BID 01/25/18 05/21/21 History dropperette (Xiidra) mecobalamin (vitamin B12) 1,000 1,000 mcg PO 3XWK tab 02/08/19 05/21/21 History mcg disintegrating tablet,sublingual atorvastatin 10 mg tablet 10 mg PO HS #90 tab 09/28/20 05/21/21 Rx cholecalciferol (vitamin D3) 25 25 mcg PO QAM 09/28/20 05/21/21 History mcg (1,000 unit) capsule pantoprazole 40 mg tablet,delayed 40 mg PO QAM #90 tab 10/12/20 05/21/21 Rx release metoprolol succinate 25 mg 12.5 mg PO HS #45 tab 10/19/20 05/21/21 Rx tablet,extended release 24 hr azelastine 205.5 mcg (0.15 %) 2 spray INTRANASAL HS 04/27/21 05/21/21 History nasal spray cholestyramine-aspartame 4 gram 4 g PO QAM 04/27/21 05/21/21 History oral powder (Cholestyramine Light) clopidogrel 75 mg tablet 75 mg PO QAM 04/27/21 05/21/21 History dicyclomine 10 mg capsule 10 mg PO HS 04/27/21 05/21/21 History acetaminophen 500 mg capsule 1,000 mg PO TID 30 Days #180 cap 05/19/21 05/21/21 Rx aspirin 81 mg tablet,delayed 81 mg PO DAILY #30 tab 05/19/21 05/21/21 Rx release (Aspirin Low Dose) hydromorphone 2 mg tablet 2 - 4 mg PO Q6 PRN #40 tab 05/19/21 05/21/21 Rx ketorolac 10 mg tablet 10 mg PO Q6 5 Days #20 tab 05/19/21 05/21/21 Rx ondansetron HCl 4 mg tablet 4 mg PO Q6 PRN #30 tab 05/19/21 05/21/21 Rx sennosides 8.6 mg-docusate sodium 1 tab-cap PO DAILY #14 tab 05/19/21 05/21/21 Rx 50 mg tablet (Senokot-S) ferrous sulfate 325 mg (65 mg 325 mg PO BID #60 tab 05/22/21 Rx iron) tablet (iron) Patient History Medical History (Updated 05/22/21 @ 10:36 by Martina Urbano PA-C) CAD (coronary artery disease) S/p LAD stent Dec 2003- Follows with Dr Gregorio Not on ASA due to GI issues/ulcers- on Plavix per cardio Diverticulosis Dry eye GERD (gastroesophageal reflux disease) Well controlled and stable Hyperlipidemia Per cardio records Hypertension Per cardio records- pt denies IBS (irritable bowel syndrome) Post cholecystectomy syndrome Low iron On iron supplement Giron neuroma Right side Myocardial Infarction 2003 Pre-diabetes Stable Renal calculi HX - no recent issues Vestibular neuronitis of right ear Stable - occ balance issues Surgical History (Updated 05/22/21 @ 07:35 by Omi Jackson MD) History of adenoidectomy History of cardiac cath 2003 - [facility] - 1 STENT - FOLLOWS W/ DR. GREGORIO History of colonoscopy History of ERCP History of heart artery stent X 1 (2003) History of hysterectomy History of removal of cyst Rt thumb - 03[place]06/[place] [facility] [place] of tonsillectomy Hx laparoscopic cholecystectomy Laparoscopic Cholecystectomy Dr. Patterson 04/25/2020 Family History Family/Other Myocardial infarction Grandmother (Maternal) Heart disease Cancer Mother Heart disease Grandfather (Maternal) Gastric cancer Other Family history of diabetes mellitus Denies family history of Ovarian cancer Prostate cancer Breast cancer Colorectal cancer Social History Smoking Status: Never smoker Second Hand Exposure: Yes (as a child); Hx Alcohol Use: Yes Alcohol type: beer and wine Hx Substance Use: No Preferred Language: Rwandan Communication Ability: Effective Visual Impairment: No Limitations Hearing Ability: Normal [place] Required: No Beliefs That Will Affect Care: None marital status: Current Living Situation: Spouse current occupational status: retired How many Children do You have: 2 Feels Safe at Home: Yes Childhood Exposure to Second-Hand Smoke: Yes Dental Care, Regularly: Yes Physical Activity Frequency: 5-6 Times per Week Seatbelt Use: always Sunscreen Use: Yes Assistive Devices: None Review of Systems Review of Systems: All systems reviewed & are unremarkable except as noted in HPI & below Constitutional: Denies fever, chills Eyes: Denies blurry vision, vision changes ENT: Denies sore throat Cardiovascular: Denies chest pain, palpitations Respiratory: Denies shortness of breath Gastrointestinal: Denies abdominal pain, nausea, vomiting, constipation, diarrhea Genitourinary: Denies urinary symptoms including dysuria Musculoskeletal: Denies weakness. See HPI Neurological: Denies headache, numbness, tingling, focal weakness Physical Exam Physical Exam: General: Grossly A&O. NAD. Cooperative. Well appearing. Conversational. HEENT: Atraumatic, normocephalic. EOMI Pulm: CTAB. -wheezes, -rales, -rhonchi. No respiratory distress. Cardiac: RRR, -mrg. Radial pulses intact and symmetrical. Cap refill <2s. Abdominal: Nontender, nondistended, soft. Integ: Warm, dry, intact. No mucosal pallor of eyelids. Msk: R knee wrapped in elastic wrap. Neuro: Moving toes. Sensation of feet intact. Results & Data Results & Data ([facility]) Vital Signs (Past 12 Hours) Vital Signs Temp Pulse Resp BP Pulse Ox 05/22/21 02:20 36.8 C 05/22/21 02:08 74 86/49 L 05/22/21 01:20 74 93/58 L 05/22/21 00:06 75 16 82/46 L 92 05/21/21 23:20 37.0 C 85 15 97/60 L 93 05/21/21 20:14 78 105/66 05/21/21 19:39 36.7 C 86 14 107/73 92 05/21/21 16:20 36.5 C 78 18 131/91 97 05/21/21 15:00 80 18 142/73 H 98 Laboratory Results 05/22/21 01:45 05/22/21 01:45 CBC 05/22/21 Range/Units 01:45 WBC 5.96 (4.8-10.8) K/uL RBC 3.64 L (4.2-5.4) M/uL Hgb 8.6 L (12.0-16.0) g/dL Hct 26.9 L (37-47) % Plt Count 127 L (130-400) K/uL Neut # (Auto) 4.37 (1.4-6.5) K/uL Lymph # (Auto) 0.73 L (1.2-3.4) K/uL Brantley # (Auto) 0.82 H (0.11-0.59) K/uL Eos # (Auto) 0.03 (0-0.5) K/uL Baso # (Auto) 0.01 (0-0.2) K/uL Comprehensive Metabolic Panel 05/22/21 Range/Units 01:45 Sodium 137 (136-145) mmol/L Potassium 3.8 (3.5-5.1) mmol/L Chloride 106 (98-107) mmol/L Carbon Dioxide 25 (21-32) mmol/L BUN 13 (6-23) mg/dl Creatinine 0.61 (0.6-1.2) mg/dl Glucose 113 H (70-99(Fasting)) mg/dl Calcium 7.8 L (8.5-10.1) mg/dl Intake and Output 05/21/21 05/21/21 05/22/21 14:59 22:59 06:59 Intake Total 1350 / 3680 580 / 3680 1750 / 3680 Output Total 50 / 51 1 / 51 Balance 1300 / 3629 579 / 3629 1750 / 3629 Intake: IV 100 / 1700 100 / 1700 1500 / 1700 Lactated Ringer's 500 ml @ 999 0 / 1500 1500 / 1500 mls/hr IV .Q31M ONE Rx#: [id number] Tranexamic Acid / 0.7% NaCl 1, 100 / 200 100 / 200 000 mg In 100 ml @ 600 mls/hr IV Q6H [facility] Rx#:[id number] IV Perioperative 1250 / 1250 0 / 1250 Oral 480 / 730 250 / 730 Output: Estimated Blood Loss 50 / 50 # Bowel Movements Other: # Unmeasured Voids 1 1 Weight 65.907 kg Patient Weight 05/22/21 06:59 Weight 65.907 kg Diagnostic Findings Knee X-Ray 05/21/21 08:40 RIGHT KNEE 2 VIEWS History: Right total knee arthroplasty. Degenerative arthritis. Postop. FINDINGS: The patient is status post a right total knee arthroplasty. The hardware is intact. No fracture or dislocation. Skin cherie and surgical drains are in place. IMPRESSION: Right total knee arthroplasty. No evidence for hardware complication. ACT 112: Negative or not required by law. Electronically signed by: Alec Rodriguez M.D. 05/21/2021 9:38 AM Resident Activity Tracking Resident Involvement: Resident Care Provided Care Provided: Adult [facility]
[2021-05-22] MEDS ORDERED: SODIUM CHLORIDE 0.9% 250 ML IV PRN (03:37)
[2021-05-22] MEDS ORDERED: ACETAMINOPHEN 325 MG TAB PO STA (03:55)
[2021-05-22] MEDS: ceFAZolin 1000MG 1,000 MG/7.5 ML SYR IV SCH (06:16)
[2021-05-22] MEDS ORDERED: HYDROmorphone HCL 2 MG TAB PO STA (07:10)
[2021-05-22] MEDS: Scopolamine CHECK PATCH PLACEMENT SCH ×2 (07:23→14:28)
[2021-05-22] MEDS: ASCORBIC ACID 500 MG TAB PO SCH (07:24)
[2021-05-22] MEDS: XIIDRA: ORDER AWAITING ACTION SCH ×3 (07:25→15:10)
[2021-05-22 07:30] LABS: Microcytosis Present
[2021-05-22] MEDS ORDERED: dexAMETHasone 10 MG in SYRINGE 0 ML IV SCH (08:00)
[2021-05-22] MEDS: TAPENTADOL HCL ER 50 MG TABCR PO SCH (08:27)
[2021-05-22] MEDS: DOCUSATE SODIUM 100 MG CAP PO SCH (08:28)
[2021-05-22] MEDS ORDERED: CLOPIDOGREL BISULFATE 75 MG TAB PO SCH (09:00)
[2021-05-22] MEDS ORDERED: CHOLECALCIFEROL 1,000 UNITS 25 MCG TAB PO SCH (09:00)
[2021-05-22] MEDS ORDERED: DOCUSATE SODIUM/SENNA 50/8.6MG TAB PO SCH (09:00)
[2021-05-22] MEDS ORDERED: ASPIRIN 81 MG ECTAB PO SCH (09:00)
[2021-05-22] MEDS ORDERED: MULTIVITAMIN TAB PO SCH (09:00)
[2021-05-22] MEDS ORDERED: PANTOprazole 40 MG TAB PO SCH (09:00)
--- NOTE | 2021-05-22 09:15 | Progress Notes ---
DATE OF SERVICE: 05/22/2021. SUBJECTIVE: A 65-year-old white female, postoperative day 1 from a right knee replacement. Pretty b ad night as she had some hypotension and did not get any pain medicines and then she has been miserab le in pain. No chest pain or shortness of breath, just knee pain. Pretty frustrated with the situat ion. Her blood pressure has been low, but she has been asymptomatic. No dizziness, no chest pain, n o lightheadedness. She is currently getting a unit of blood. OBJECTIVE: VITAL SIGNS: Temperature is 36.6. Vital signs are stable. Blood pressure 92/60. Heart rate is 73. GENERAL: Physical examination shows a pleasant middle-aged female. She is lying in bed. She is a l ittle frustrated by this situation. She is a bit uncomfortable due to her knee pain. EXTREMITIES: Examination of the right leg reveals the dressing to be clean, dry and intact. She can dorsiflex and plantarflex her foot appropriately. She has difficulty doing a straight leg raise thi s morning. LABORATORY DATA: Hemoglobin is 8.6. Hematocrit 26.9. Electrolytes are stable. ASSESSMENT: A 65-year-old white female, postoperative day 1 from right knee replacement with some as ymptomatic hypotension. This is not unusual after spinal anesthesia. She is asymptomatic. She is g etting a unit of blood. PLAN: 1. DVT prophylaxis includes thigh-high TEDs, SCDs and back on her Plavix starting today. She is als o on a baby aspirin once a day. 2. PT/OT. We will do therapy today. 3. Pain control. Will continue using Dilaudid for pain control. She is also getting the 24 hours o f Toradol and around the clock Tylenol. 4. Hypotension. She is completely asymptomatic. Does not need further workup for this. She is get ting a unit of blood, which in my opinion is unnecessary. She is asymptomatic. Continue to encourag e p.o. intake. We need to continue her pain control. 5. Disposition: She is planning to be discharged to home with home health. Hopefully, we will get her home today depending on how therapy goes and how her pain control is. Job ID: [id number]
[2021-05-22] MEDS ORDERED: CHOLESTYRAMINE LIGHT 4 GM PKT PO SCH ×2 (10:00→13:00)
[2021-05-22] MEDS: HYDROmorphone INJ 0.5 MG/0.5 ML SYR IV PRN ×2 (10:23→16:35)
[2021-05-22] MEDS: ACETAMINOPHEN 500 MG TAB PO SCH ×2 (10:27→14:06)
--- NOTE | 2021-05-22 10:42 | Hospitalist Progress Note ---
Date of Service May 22, 2021 Assessment & Plan (1) Hypotension: Plan: - Not surprising post operative in setting of spinal anesthesia - Aggressive IVF hydration provided - CBC demonstrated hgb of 8.6, in setting of hypotension overnight resident ordered transfusion - At this point, her blood pressure is acceptable (2) Postoperative anemia due to acute blood loss: Plan: - EBL 50 cc on operative report, however, suspect probably had more - Hgb could also have a dilutional component given the large volume of IVF given - Transfusion ordered with 1 unit of PRBCs - Obtain CBC one hour following transfusion completion - Recommend 60 days of FeSO4 - Repeat CBC as outpatient in 1 week to ensure stability (3) Status post knee replacement: Plan: POD#1 - Pain control, PT/OT, and DVT ppx as instructed by orthopedics - Recommend use of incentive spirometry q1h wa - F/U with orthopedics as instructed (4) CAD (coronary artery disease): Plan: - Continue cardioprotective medications including Lipitor, Metoprolol, and Plavix Plan: At this time, I have no further recommendations for this patient. Thank you for allowing us to participate in her care. Will review results of f/u CBC once available; however, I do not see any contraindication to her discharge at this time. Above plan will be d/w Dr. Rodriguez. Admission and Anticipated Discharge Date Admission Date: May 21, 2021 Subjective Patient seen on daily rounds this morning. She is s/p TKA pod#1. She reports currently no symptoms of chest pain, dyspnea, n/v/d, f/c, headache, dizziness/lightheadedness, or gu symptoms. Knee pain has been an issue as she was not given any pain medication overnight due to her hypotension. She was hydrated overnight and cbc indicated a hgb of 8.6, subsequently overnight resident ordered a unit of PRBCs which is transfusing now. She does take an OTC iron supplement at home. Denies melena or hematochezia. EBL according to op report was 50 cc. Review of Systems Review of Systems: CONSTITUTIONAL: Denies weight loss/gain, fever and chills, fatigue, malaise, generalized weakness. HEENT: Denies changes in vision and hearing. RESPIRATORY: Denies SOB, cough, wheezing. CV: Denies palpitations, CP, lower extremity edema, orthopnea, PND. GI: Denies abdominal pain, nausea, vomiting and diarrhea. : Denies dysuria and urinary frequency, urgency, hesitancy. MUSCULOSKELETAL: +right knee pain. SKIN: Denies rash and pruritus. NEUROLOGICAL: Denies headache, syncope, focal weakness, numbness, tingling. PSYCHIATRIC: Denies recent changes in mood. Denies anxiety and depression. Physical Exam Physical Exam: GENERAL: 65 yo well-developed, well-nourished WF. NAD. LUNGS: Clear to auscultation bilaterally. No W/R/R. CARDIOVASCULAR: Regular rate and rhythm. No M/G/R. No JVD. ABDOMEN: Soft, non-tender and non-distended. BS normoactive x 4 quad. EXTREMITIES: No edema. Non-tender. Peripheral pulses +2/4. RLE negative inga's sign, no calf tenderness. NEUROLOGIC: A&O x3. PSYCHIATRIC: Cooperative. Appropriate mood and affect. SKIN: Warm, dry, intact. No rashes or lesions. Results & Data Results & Data ([facility]) Vital Signs (Past 12 Hours) Vital Signs Temp Pulse Pulse Resp BP BP BP 05/22/21 10:05 36.6 C 78 18 118/78 05/22/21 10:01 36.6 C 77 18 127/80 05/22/21 08:31 36.5 C 71 16 92/61 L 05/22/21 08:14 36.6 C 73 16 92/60 L 05/22/21 07:59 37 C 73 18 91/58 L 05/22/21 07:43 36.9 C 73 18 111/77 05/22/21 07:29 36.9 C 73 18 111/77 05/22/21 06:44 36.6 C 72 16 94/61 L 05/22/21 05:04 36.7 C 70 14 88/56 L 05/22/21 02:20 36.8 C 05/22/21 02:08 74 86/49 L 05/22/21 01:20 74 93/58 L 05/22/21 00:06 75 16 82/46 L 05/21/21 23:20 37.0 C 85 15 97/60 L Pulse Ox 05/22/21 10:05 94 05/22/21 10:01 97 05/22/21 08:31 95 05/22/21 08:14 96 05/22/21 07:59 96 05/22/21 07:43 05/22/21 07:29 95 05/22/21 06:44 95 05/22/21 05:04 93 05/22/21 02:20 05/22/21 02:08 05/22/21 01:20 05/22/21 00:06 92 05/21/21 23:20 93 Laboratory Results repeat CBC pending PG Care Time/CCT Total # of Minutes Spent Total Time Spent with Patient: Total time spent is greater than 50% in coordination of care (as documented) at patient's floor/unit and/or counseling patient: Coding Level of Care Code 54195 Subseq Hosp Care Lvl 2 Diagnoses Status post knee replacement Z96.659 Hypotension I95.9 Postoperative anemia due to acute blood loss D62 CAD (coronary artery disease) I25.10
[2021-05-22 11:23] LABS: Eosinophils # (auto) 0.01 K/uL (0-0.5); Eosinophils % (auto) 0.2 %; Hematocrit (blood only) 30.7 % (37-47); Hemoglobin 9.9 g/dL (12.0-16.0); Immature Granulocytes # (auto) 0.01 K/uL (0.00-0.02); Immature Granulocytes % (auto) 0.2 %; Lymphocytes # (auto) 0.33 K/uL (1.2-3.4); Lymphocytes % (auto) 5.5 %; Mean Corpuscular Hemoglobin 24.5 pg (25-34); Mean Platelet Volume 10.1 fL (7.4-10.4); Monocytes # (auto) 0.27 K/uL (0.11-0.59); Monocytes % (auto) 4.5 %; Neutrophils # (auto) 5.36 K/uL (1.4-6.5); Neutrophils % (auto) 89.6 %; Platelet Count 117 K/uL (130-400); RDW Coefficient of Variation 14.9 % (11.5-14.5); RDW Standard Deviation 41.1 fL (36.4-46.3); Red Blood Count 4.04 M/uL (4.2-5.4); White Blood Count 5.98 K/uL (4.8-10.8)
[2021-05-22 12:00] LABS: Mean Corpuscular Hgb Conc 32.2 g/dL (32-36)
[2021-05-22] MEDS ORDERED: FERROUS SULFATE 325 MG TAB PO SCH (17:00)
--- NOTE | 2021-05-22 19:43 | Billing Data ---
Date of Service May 22, 2021 Coding Level of Care Code 35517 Inpt Consult Level 3
[2021-05-24] MEDS ORDERED: FERROUS SULFATE 325 MG TAB PO SCH (09:00)
[2021-05-24] MEDS ORDERED: CYANOCOBALAMIN (B-12) 500 MCG TABLET PO SCH (09:00)
--- NOTE | 2021-05-26 11:34 | Discharge Summary ---
Date of Service May 26, 2021 Discharge Data Consultations 05/22/21 02:42 Consult Hospitalist Routine Procedures Performed Operation Date: 05/21/21 07:00 Actual Procedures p Right Total Knee Arthroplasty(Right) - Elian Telelz MD Hospital Course (1) Status post total right knee replacement: This patient is a 65 year old female admitted on 05/21/21 and underwent total knee arthroplasty. She tolerated the procedure well and there were no complications. She was scheduled as an outpatient but was hypotensive post op and admitted over night. She was transferred to the PACU post op and later to the orthopedic floor for further care. She was given ancef for antibiotic prophylaxis. She was also given KINA stockings, SCDs, and aspirin/plavix for DVT prophylaxis. Hemoglobin, hematocrit, and vital signs were monitored during her hospital stay. She did have some post op anemia and hypotension. She was transf used 1 unit of PRBCs. There were no complications during her hospital stay. By post op day #1 the patient was tolerating a regular diet, pain was reasonably controlled with oral pain medicine, and she was participating in physical therapy. On post op day #1 the patient was discharged home and set up with home health care. She was given printed discharge instructions including prescriptions for extra strength tylenol, aspirin, plavix, toradol, zofran, and hydromorphone. Continue physical therapy, weight bearing as tolerated. Continue KINA stockings. Follow up approximately 2 weeks post op or sooner if there are problems or concerns. Coding Level of Care Code None Diagnoses Status post total right knee replacement Z96.651
== END 2021-05-22 17:12 | disposition home health service (06) ==
LOC: ASU 05:08 → 3N 05:08

== ENCOUNTER 2021-08-18 11:07 | Inpatient (IN) ==
--- NOTE | 2021-08-18 11:14 | Emergency Department Note ---
Impression & Plan Acute non-ST elevation myocardial infarction (NSTEMI), Hypertension, Chest pain, Aortic aneurysm ED Provider Note NAME: JHOANA SEPULVEDA AGE: 66 SEX: F : 1955 ARRIVES VIA: Walk-In INFORMANT: Patient, ED PROVIDER(S): Ad Maya MD Chief Complaint: Chest pain HPI: Patient presents due to concern for chest pain. The patient states that this is the third episode that is occurred in the last week. Most recently this occurred at [facility] earlier today and has been persistent since then. It was an 8-10 and originally is currently 6 out of 10. Patient did take 1 aspirin. The patient does take Plavix but typically does not take aspirin due to an intolerance in the past. Patient follows with Dr. Gregorio with cardiology and does have a known history of stents. The patient does complain of some numbness of the left upper extremity. The patient states that her chest pain is left-sided and central aching and nonradiating. The patient has had some nausea and feeling slightly sweaty. Patient states it feels somewhat similar to when she had a prior ND years ago. Patient denies any shortness of breath. Patient did have a knee replacement completed back in May and the patient is had swelling in her right lower extremity for the last several weeks but denies any calf pain or redness. No recent falls or trauma. Patient states that during her 2 previous episode she had called the on-call and they stated that as her blood pressure was elevated just to continue to monitor her symptoms. ROS: See HPI for pertinent positives and negatives. A total of 10 systems were reviewed and otherwise negative. Past medical history: See below Surgical history: See below Social history: See below Physical Exam: GENERAL: Anxious in appearance. NAD, wearing glasses, wearing a mask, non-toxic. EYE EXAM: Normal conjunctiva. PERRL, no anisocoria and EOM's grossly intact w/o pain. NECK: Supple, no nuchal rigidity, no adenopathy, non-tender. No signs of meningismus. LUNGS: Clear to auscultation. Normal chest wall mechanics. HEART: NSR, no MRG. ABDOMEN: Abdomen soft, non-tender, normo-active bowel sounds, no masses, no rebound or guarding. BACK: No CVA TTP. SKIN: No rashes and no bruising. UPPER EXTREMITIES: Upper extremities are grossly normal. LOWER EXTREMITIES: Grossly normal, right greater than left lower extremity swelling, right lower extremity compression stocking, no calf pain or erythema. NEURO EXAM: A&O x3, cranial nerves II-XII grossly intact, normal speech, moves all 4 extremities on command w/o issue. Good finger to nose, no drift, no sensory deficits. Differential diagnoses: Cardiac ischemia, aortic dissection, pulmonary embolism, pneumothorax, pneumonia, pericarditis, myocarditis, esophageal rupture, GERD, cholecystitis, pancreatitis, musculoskeletal, as well as other pathologies. Course: Patient was seen and evaluated the bedside. Full history physical exam was performed. EKG interpreted by me Sinus tachycardia, rate of 101, normal intervals, normal axis, T wave version in lead III T wave flattening in V2. EKG appears grossly unchanged from comparison completed May 03, 2021 Repeat EKG interpreted by me Normal sinus rhythm, rate of 86, normal intervals, normal axis, T wave inversion in lead III. T wave flattening in V2. Heart rate is improved compared to previous EKG. Imaging Studies: See Below Cardiac monitoring: An order was placed for continuous cardiac monitoring. The monitor shows a rate of 88 with sinus rhythm. MDM: Patient was seen due to concern for chest pain. The patient was ordered nitro. The patient has had a prior issue with aspirin in the past but this was ordered and offered but the patient if she cannot take it. The patient was ordered COVID Zofran and fluids. Troponin and blood work chest x-ray also obtained. Patient has a normal white count H&H and platelet count. The patient's kidney function is unremarkable. D-dimer elevated so CT angiography of the chest was ordered. Initial troponin is not elevated. The patient is COVID-negative. Given the patient's atypical chest pain story and significant history do believe the patient should stay for observation and continued treatment. Patient also did have improvement in her chest pain after the nitro. Patient stated that she could barely feel it now but it was virtually gone. CT angiography does not show any evidence of PE. Incidental finding of mildly enlarged ascending aorta at 4 cm. Patient does not complain of any ripping or searing pain. The patient did have a repeat troponin that was ordered by the hospitalist service which was elevated compared to prior. Patient was ordered heparin. Patient was admitted to the medicine service. Critical Care: I have personally spent 79 minutes of critical care time in direct management of this patient. This includes bedside care, interpretation of diagnostic studies, and testing, discussion with consultants, patient, and family members, and other require inpatient management activities. This 79 minutes is in excess of all separately billable procedures. Past Med/Surg History Medical History CAD (coronary artery disease) S/p LAD stent Dec 2003- Follows with Dr Gregorio Not on ASA due to GI issues/ulcers- on Plavix per cardio Diverticulosis Dry eye GERD (gastroesophageal reflux disease) Well controlled and stable Hyperlipidemia Per cardio records Hypertension Per cardio records- pt denies IBS (irritable bowel syndrome) Post cholecystectomy syndrome Low iron On iron supplement Giron neuroma Right side Myocardial Infarction 2003 Pre-diabetes Stable Renal calculi HX - no recent issues Vestibular neuronitis of right ear Stable - occ balance issues Surgical History History of adenoidectomy History of cardiac cath 2003 - [facility] - 1 STENT - FOLLOWS W/ DR. GREGORIO History of colonoscopy History of ERCP History of heart artery stent X 1 (2003) History of hysterectomy History of removal of cyst Rt thumb - 03/06/2019 [facility] [place] History of tonsillectomy Hx laparoscopic cholecystectomy Laparoscopic Cholecystectomy Dr. Patterson 04/25/2020 Family History Family/Other Myocardial infarction Grandmother (Maternal) Heart disease Cancer Mother Heart disease Grandfather (Maternal) Gastric cancer Other Family history of diabetes mellitus Denies family history of Ovarian cancer Prostate cancer Breast cancer Colorectal cancer Social History Smoking Status: Never smoker Second Hand Exposure: Yes (as a child); Hx Alcohol Use: Yes Alcohol type: beer and wine Hx Substance Use: No Preferred Language: American Communication Ability: Effective Visual Impairment: No Limitations Hearing Ability: Normal Director Auto Required: No Beliefs That Will Affect Care: None marital status: Current Living Situation: Spouse current occupational status: retired How many Children do You have: 2 Feels Safe at Home: Yes Childhood Exposure to Second-Hand Smoke: Yes Dental Care, Regularly: Yes Physical Activity Frequency: 5-6 Times per Week Seatbelt Use: always Sunscreen Use: Yes Assistive Devices: None Allergies Allergies Allergy/AdvReac Type Severity Reaction Status Date / Time morphine AdvReac Intermediate N/V; Verified 08/18/21 13:10 difficult to lift head Home Meds Home Medications Medication Instructions Recorded Confirmed lifitegrast 5 % eye drops in a 1 drp OPHTHALMIC (EYE) BID 01/25/18 08/18/21 dropperette (Xiidra) mecobalamin (vitamin B12) 1,000 1,000 mcg PO 3XWK tab 02/08/19 08/18/21 mcg disintegrating tablet,sublingual cholecalciferol (vitamin D3) 25 25 mcg PO 3XWK 09/28/20 08/18/21 mcg (1,000 unit) capsule azelastine 205.5 mcg (0.15 %) 2 spray INTRANASAL HS 04/27/21 08/18/21 nasal spray cholestyramine-aspartame 4 gram 4 g PO HS 04/27/21 08/18/21 oral powder (Cholestyramine Light) clopidogrel 75 mg tablet 75 mg PO QAM 04/27/21 08/18/21 dicyclomine 10 mg capsule 10 mg PO DAILY PRN 04/27/21 08/18/21 ferrous sulfate 325 mg (65 mg 325 mg PO HS 08/18/21 08/18/21 iron) tablet (iron) Previous Rx's Medication Instructions Recorded atorvastatin 10 mg tablet 10 mg PO HS #90 tab 09/28/20 pantoprazole 40 mg tablet,delayed 40 mg PO QAM #90 tab 10/12/20 release metoprolol succinate 25 mg 12.5 mg PO HS #45 tab 10/19/20 tablet,extended release 24 hr ondansetron HCl 4 mg tablet 4 mg PO Q6 PRN #30 tab 05/19/21 Results & Data (ED) Vital Signs Vital Signs - 24 hr 08/18/21 11:09 08/18/21 11:28 08/18/21 11:30 Pulse Rate 101 H 91 H 93 H Pulse Rate from SpO2 Sensor 94 H 94 H Pulse Rhythm Regular Pulse Strength Normal Respiratory Rate 20 19 20 Respiratory Effort / Characteristics Non-Labored Spontaneous Respiratory Depth Normal Respiratory Pattern Regular Blood Pressure 184/108 H Blood Pressure Mean 133 Blood Pressure Position Sitting Pulse Oximetry 98 98 98 Oxygen Delivery Method Room Air Sepsis Recent Fever Within 48 Hours No Sepsis New/Unexplained Change in Mental Status No Sepsis Action Taken by Nursing No Action Required 08/18/21 11:49 08/18/21 11:56 08/18/21 12:00 Pulse Rate 102 H 94 H 91 H Pulse Rate from SpO2 Sensor Pulse Rhythm Pulse Strength Respiratory Rate 22 20 17 Respiratory Effort / Characteristics Respiratory Depth Respiratory Pattern Blood Pressure 174/90 H 149/84 H 119/88 Blood Pressure Mean 118 105 98 Blood Pressure Position Pulse Oximetry Oxygen Delivery Method Sepsis Recent Fever Within 48 Hours Sepsis New/Unexplained Change in Mental Status Sepsis Action Taken by Nursing 08/18/21 12:08 08/18/21 12:14 08/18/21 13:00 Pulse Rate 87 83 Pulse Rate from SpO2 Sensor Pulse Rhythm Pulse Strength Respiratory Rate 18 14 Respiratory Effort / Characteristics Respiratory Depth Respiratory Pattern Blood Pressure 148/77 H Blood Pressure Mean 100 Blood Pressure Position Pulse Oximetry Oxygen Delivery Method Room Air Sepsis Recent Fever Within 48 Hours Sepsis New/Unexplained Change in Mental Status Sepsis Action Taken by Nursing 08/18/21 13:30 08/18/21 14:00 08/18/21 14:30 Pulse Rate 79 89 Pulse Rate from SpO2 Sensor Pulse Rhythm Pulse Strength Respiratory Rate 18 22 19 Respiratory Effort / Characteristics Respiratory Depth Respiratory Pattern Blood Pressure Blood Pressure Mean Blood Pressure Position Pulse Oximetry Oxygen Delivery Method Sepsis Recent Fever Within 48 Hours Sepsis New/Unexplained Change in Mental Status Sepsis Action Taken by Nursing 08/18/21 14:42 08/18/21 15:00 08/18/21 15:30 Pulse Rate 96 H 97 H Pulse Rate from SpO2 Sensor Pulse Rhythm Pulse Strength Respiratory Rate 20 24 22 Respiratory Effort / Characteristics Respiratory Depth Respiratory Pattern Blood Pressure 163/101 H 151/95 H Blood Pressure Mean 121 113 Blood Pressure Position Pulse Oximetry Oxygen Delivery Method Sepsis Recent Fever Within 48 Hours Sepsis New/Unexplained Change in Mental Status Sepsis Action Taken by Nursing 08/18/21 15:55 08/18/21 16:00 Pulse Rate 73 89 Pulse Rate from SpO2 Sensor Pulse Rhythm Pulse Strength Respiratory Rate 18 21 Respiratory Effort / Characteristics Respiratory Depth Respiratory Pattern Blood Pressure 147/72 H 158/93 H Blood Pressure Mean 114 Blood Pressure Position Pulse Oximetry 98 Oxygen Delivery Method Room Air Sepsis Recent Fever Within 48 Hours Sepsis New/Unexplained Change in Mental Status Sepsis Action Taken by Intermediate Medications Current Medication List: was personally reviewed by me Laboratory Data Attestation: I reviewed the patient's lab results. Result diagrams: 08/18/21 11:20 08/18/21 11:20 Lab Results 08/18/21 08/18/21 08/18/21 Range/Units 11:20 11:20 11:20 WBC 5.10 (4.8-10.8) K/uL RBC 5.46 H (4.2-5.4) M/uL Hgb 13.5 (12.0-16.0) g/dL Hct 41.1 (37-47) % MCV 75.3 L (80-100) fL MCH 24.7 L (25-34) pg MCHC 32.8 (32-36) g/dL RDW Std Deviation 35.5 L (36.4-46.3) fL RDW Coeff of Cyrus 13.1 (11.5-14.5) % Plt Count 217 (130-400) K/uL MPV 10.7 H (7.4-10.4) fL Immature Gran % (Auto) 0.4 % Neut % (Auto) 50.9 % Lymph % (Auto) 35.7 % Stanly % (Auto) 11.6 % Eos % (Auto) 1.2 % Baso % (Auto) 0.2 % Neut # (Auto) 2.60 (1.4-6.5) K/uL Lymph # (Auto) 1.82 (1.2-3.4) K/uL Stanly # (Auto) 0.59 (0.11-0.59) K/uL Eos # (Auto) 0.06 (0-0.5) K/uL Baso # (Auto) 0.01 (0-0.2) K/uL Immature Gran # (Auto) 0.02 (0.00-0.02) K/uL PT 10.8 (9.0-12.0) Seconds INR 1.0 (0.9-1.1) APTT 26.2 (21.0-31.0) Seconds PTT Ratio 1.0 D-Dimer 1980 H* (0-500) ug/L FEU Sodium 140 (136-145) mmol/L Potassium 3.8 (3.5-5.1) mmol/L Chloride 104 (98-107) mmol/L Carbon Dioxide 26 (21-32) mmol/L Anion Gap 10 (3-11) BUN 15 (6-23) mg/dl Creatinine 0.58 L (0.6-1.2) mg/dl Est Cr Clr Drug Dosing 76.8 ml/min Est GFR ( Amer) 109.8 ml/min Est GFR (Non-Af Amer) 94.7 ml/min BUN/Creatinine Ratio 25.9 H (10-20) Glucose 107 H (70-99(Fasting)) mg/dl Calcium 9.6 (8.5-10.1) mg/dl Magnesium 1.9 (1.7-2.4) mg/dl Total Bilirubin 1.7 H (0.2-1.0) mg/dl AST 15 (13-39) U/L ALT 18 (7-52) U/L Alkaline Phosphatase 87 (34-104) U/L Troponin I High Sens 6.6 (0-14) pg/ml Total Protein 7.0 (6.0-8.3) gm/dl Albumin 4.7 (3.4-5.0) gm/dl Globulin 2.3 L (2.5-4.0) gm/dl Albumin/Globulin Ratio 2.0 (0.9-2) Lipase 16 (11-82) U/L SARS-CoV-2, RNA, NAAT (NEGATIVE) 08/18/21 08/18/21 Range/Units 12:06 13:55 WBC (4.8-10.8) K/uL RBC (4.2-5.4) M/uL Hgb (12.0-16.0) g/dL Hct (37-47) % MCV (80-100) fL MCH (25-34) pg MCHC (32-36) g/dL RDW Std Deviation (36.4-46.3) fL RDW Coeff of Cyrus (11.5-14.5) % Plt Count (130-400) K/uL MPV (7.4-10.4) fL Immature Gran % (Auto) % Neut % (Auto) % Lymph % (Auto) % Stanly % (Auto) % Eos % (Auto) % Baso % (Auto) % Neut # (Auto) (1.4-6.5) K/uL Lymph # (Auto) (1.2-3.4) K/uL Stanly # (Auto) (0.11-0.59) K/uL Eos # (Auto) (0-0.5) K/uL Baso # (Auto) (0-0.2) K/uL Immature Gran # (Auto) (0.00-0.02) K/uL PT (9.0-12.0) Seconds INR (0.9-1.1) APTT (21.0-31.0) Seconds PTT Ratio D-Dimer (0-500) ug/L FEU Sodium (136-145) mmol/L Potassium (3.5-5.1) mmol/L Chloride (98-107) mmol/L Carbon Dioxide (21-32) mmol/L Anion Gap (3-11) BUN (6-23) mg/dl Creatinine (0.6-1.2) mg/dl Est Cr Clr Drug Dosing ml/min Est GFR ( Amer) ml/min Est GFR (Non-Af Amer) ml/min BUN/Creatinine Ratio (10-20) Glucose (70-99(Fasting)) mg/dl Calcium (8.5-10.1) mg/dl Magnesium (1.7-2.4) mg/dl Total Bilirubin (0.2-1.0) mg/dl AST (13-39) U/L ALT (7-52) U/L Alkaline Phosphatase (34-104) U/L Troponin I High Sens 187.3 H* D (0-14) pg/ml Total Protein (6.0-8.3) gm/dl Albumin (3.4-5.0) gm/dl Globulin (2.5-4.0) gm/dl Albumin/Globulin Ratio (0.9-2) Lipase (11-82) U/L SARS-CoV-2, RNA, NAAT NEGATIVE (NEGATIVE) Administered Medications Heparin Sodium/Dextrose (Heparin Sodium/Dextrose) 25,000 units in 500 mls @ 13 mls/hr IV .Q24H [facility]; Protocol Stop: 09/17/21 14:59 Last Admin: 08/18/21 15:13 Dose: 650 units/hr, 13 mls/hr Documented by: [id number] Cosigned by: [id number] Nitroglycerin (Nitroglycerin Sl 0.4 Mg/Tab Tab) 0.4 mg SL UD PRN PRN Reason: Chest Pain Stop: 09/17/21 11:26 Last Admin: 08/18/21 11:55 Dose: 0.4 mg Documented by: [id number] Admin: 08/18/21 11:41 Dose: 0.4 mg Documented by: [id number] Discontinued Medications Aspirin (Aspirin Chew 324 Mg) 243 mg PO NOW STA Stop: 08/18/21 11:31 Last Admin: 08/18/21 11:41 Dose: 243 mg Documented by: [id number] Heparin Sodium (Porcine) (Heparin Sod (Porcine) 1000 Unit/Ml) 3,000 units IV NOW ONE Stop: 08/18/21 14:59 Last Admin: 08/18/21 15:13 Dose: 3,000 units Documented by: [id number] Cosigned by: [id number] Heparin Sodium/Dextrose (Heparin Iv Adult Wt-Based Low-Dose With Bolus Protocol) 1 ea IV NOW STA; Protocol Stop: 08/18/21 14:42 Last Admin: 08/18/21 15:26 Dose: Not Given Documented by: [id number] Heparin Sodium/Dextrose (Heparin Iv Adult Wt-Based Low-Dose With Bolus Protocol) 1 ea IV Q30M [facility]; Protocol Stop: 08/18/21 14:47 Last Admin: 08/18/21 15:26 Dose: Not Given Documented by: [id number] Sodium Chloride (Nss) 500 mls @ 999 mls/hr IV .Q31M STA Stop: 08/18/21 11:57 Last Infusion: 08/18/21 14:24 Dose: 0 mls/hr Documented by: [id number] Admin: 08/18/21 11:46 Dose: 999 mls/hr Documented by: [id number] Heparin Sodium/Dextrose (Heparin Sodium/Dextrose) 25,000 units in 500 mls @ 0.02 mls/hr IV .Q24H [facility]; Protocol Stop: 09/17/21 14:59 Last Admin: 08/18/21 15:26 Dose: Not Given Documented by: [id number] Ioversol (Optiray 320 125ml) 120 ml IV ONCE ONE Stop: 08/18/21 12:28 Last Admin: 08/18/21 12:28 Dose: 120 ml Documented by: [id number] Nitroglycerin (Nitroglycerin 2% Ointment 30gm Tube) 1 inch EXT ONE STA Stop: 08/18/21 14:44 Last Admin: 08/18/21 15:11 Dose: 1 inch Documented by: [id number] Ondansetron HCl (Ondansetron Inj 2 Mg/Ml 2 Ml Vial) 4 mg IV NOW STA Stop: 08/18/21 11:28 Last Admin: 08/18/21 11:41 Dose: 4 mg Documented by: [id number] Imaging Data Radiologist's Impression: Chest X-Ray 08/18/21 11:28 SINGLE VIEW CHEST CLINICAL HISTORY: Atypical chest pain. FINDINGS: An AP, portable, upright chest radiograph is compared to study dated 05/03/2021. The heart is mildly enlarged. The pulmonary vasculature is noncongested. Chronic interstitial thickening is similar to previous. The lungs and pleural spaces are clear. No pneumothorax is seen. The skeletal structures are osteopenic. The bony thorax is grossly intact. IMPRESSION: No active disease in the chest. ACT 112: Negative or not required by law. Electronically signed by: German Fung M.D. 08/18/2021 11:50 AM Chest CTA 08/18/21 12:12 CT ANGIOGRAM OF THE CHEST CLINICAL HISTORY: Atypical chest pain. COMPARISON STUDY: Chest x-ray dated 08/18/2021. Abdominal CT dated 03/15/2021. TECHNIQUE: Following the IV administration of 120 cc of Optiray 320, CT angiogram of the chest was performed from the upper abdomen to the thoracic inlet utilizing the pulmonary embolus protocol. Images are reviewed in the axial, sagittal, and coronal planes. 3-D MIPS images are created and assessed. IV contrast was administered without complication. A dose lowering technique was utilized adhering to the principles of ALARA. CT DOSE: 273.02 mGy.cm FINDINGS: Thyroid: Imaged portions of the thyroid gland are normal in size and attenuation. Thoracic aorta: There is mild atherosclerotic calcification of the thoracic aorta. There is mild aneurysmal dilatation of the ascending thoracic aorta which measures up to 4.1 cm. The remainder of the thoracic aorta is normal in caliber, and the arch demonstrates bovine variant anatomy. No dissection is seen. Pulmonary vasculature: The pulmonary trunk is normal in caliber. There are no filling defects identified in main, lobar, or segmental pulmonary branches to suggest pulmonary embolus. Heart: The heart is mildly enlarged and without pericardial effusion. There are coronary artery calcifications. Lungs and pleural spaces: There is no airspace consolidation or pleural effusion. Scarring/atelectasis is seen at the lung bases. There are scattered calcified granulomas. The trachea and central airways are clear. Diffuse peribronchial thickening is observed. Mediastinum: There is no mediastinal lymphadenopathy. Wendy: Clear. Axillae: There is no axillary lymphadenopathy. Upper abdomen: Pneumobilia is again seen in the left lobe of the liver. Partially visualized upper abdominal viscera is otherwise within normal limits. Skeletal structures: The skeletal structures are osteopenic. Mild degenerative change and hyperkyphosis is seen in the thoracic spine. No lytic or blastic bony lesions are seen. IMPRESSION: 1. There is no evidence of pulmonary embolus in the main, lobar, or segmental pulmonary arteries. 2. There is no airspace consolidation or pleural effusion. 3. Diffuse peribronchial thickening suggests bronchitis/reactive airway disease. Clinical correlation will be required. 4. Mild cardiomegaly. 5. There is mild aneurysmal dilatation of the ascending thoracic aorta which measures up to 4.1 cm in diameter. ACT 112: Negative or not required by law. Electronically signed by: German Fung M.D. 08/18/2021 12:40 PM Discharge Plan Visit Data Chief Complaint: Chest Pain Stated Complaint: CHEST PAIN, NUMBNESS IN L ARM ED Provider: Ad Maya Discharge Problem: Acute non-ST elevation myocardial infarction (NSTEMI), Hypertension, Chest pain, Aortic aneurysm Patient Disposition: Admitted As Inpatient Discharge Instructions Interventions: ED Discharge Assessment Last Done: 08/18/21 15:55 Forms Stand Alone Forms: [employer] Prescriptions Prescriptions: No Action pantoprazole 40 mg tablet,delayed release (DR/EC) 40 mg PO QAM Qty: 90 RF: 3 metoprolol succinate 25 mg tablet extended release 24 hr 12.5 mg PO HS Qty: 45 RF: 3 ondansetron HCl 4 mg tablet 4 mg PO Q6 PRN (Reason: nausea) Qty: 30 RF: 1 mecobalamin (vitamin B12) 1,000 mcg tablet,disintegrating 1,000 mcg PO 3XWK RF: 0 cholecalciferol (vitamin D3) 25 mcg (1,000 unit) capsule 25 mcg PO 3XWK RF: 0 atorvastatin 10 mg tablet 10 mg PO HS Qty: 90 RF: 3 Xiidra 5 % Dropperette 1 drp OPHTHALMIC (EYE) BID RF: 0 Cholestyramine Light 4 gram Powder 4 g PO HS RF: 0 clopidogrel 75 mg tablet 75 mg PO QAM RF: 0 azelastine 205.5 mcg (0.15 %) spray,non-aerosol 2 spray intranasal HS RF: 0 dicyclomine 10 mg Capsule 10 mg PO DAILY PRN (Reason: abdominal cramping) RF: 0 ferrous sulfate [iron] 325 mg (65 mg iron) tablet 325 mg PO HS RF: 0 Referrals Referrals: ProJono MD [Primary Care Provider] -
[2021-08-18] MEDS ORDERED: SODIUM CHLORIDE 0.9% 500 ML IV STA (11:27)
[2021-08-18] MEDS ORDERED: ONDANSETRON INJ 2 MG/ML 2 ML VIAL IV STA (11:27)
[2021-08-18] MEDS ORDERED: ASPIRIN CHEW 324 MG PO STA (11:30)
[2021-08-18] MEDS: NITROGLYCERIN SL 0.4 MG/TAB TAB SL PRN ×2 (11:41→11:55)
--- NOTE | 2021-08-18 11:51 | XRay Report ---
SINGLE VIEW CHEST CLINICAL HISTORY: Atypical chest pain. FINDINGS: An AP, portable, upright chest radiograph is compared to study dated 05/03/2021. The heart i s mildly enlarged. The pulmonary vasculature is noncongested. Chronic interstitial thickening is kassandra lar to previous. The lungs and pleural spaces are clear. No pneumothorax is seen. The skeletal struct ures are osteopenic. The bony thorax is grossly intact. IMPRESSION: No active disease in the chest. ACT 112: Negative or not required by law. Electronically signed by: German Fung M.D. 08/18/2021 11:50 AM
[2021-08-18 11:52] LABS: Basophils # (auto) 0.01 K/uL (0-0.2); Basophils % (auto) 0.2 %; Eosinophils # (auto) 0.06 K/uL (0-0.5); Eosinophils % (auto) 1.2 %; Hematocrit (blood only) 41.1 % (37-47); Hemoglobin 13.5 g/dL (12.0-16.0); Immature Granulocytes # (auto) 0.02 K/uL (0.00-0.02); Immature Granulocytes % (auto) 0.4 %; Lymphocytes # (auto) 1.82 K/uL (1.2-3.4); Lymphocytes % (auto) 35.7 %; Mean Corpuscular Hemoglobin 24.7 pg (25-34); Mean Corpuscular Hgb Conc 32.8 g/dL (32-36); Mean Corpuscular Volume 75.3 fL (80-100); Mean Platelet Volume 10.7 fL (7.4-10.4); Monocytes # (auto) 0.59 K/uL (0.11-0.59); Monocytes % (auto) 11.6 %; Neutrophils % (auto) 50.9 %; Platelet Count 217 K/uL (130-400); RDW Coefficient of Variation 13.1 % (11.5-14.5); RDW Standard Deviation 35.5 fL (36.4-46.3); Red Blood Count 5.46 M/uL (4.2-5.4)
[2021-08-18 12:10] LABS: D Dimer 1980 ug/L FEU (0-500)
[2021-08-18 12:20] LABS: Albumin Level 4.7 gm/dl (3.4-5.0); BUN Creatinine Ratio 25.9 (10-20); Bilirubin,Total 1.7 mg/dl (0.2-1.0); Calcium 9.6 mg/dl (8.5-10.1); Creatinine Clr Calc Pharmacy 76.8 ml/min; Est GFR (African American) 109.8 ml/min; Est GFR (Non-African American) 94.7 ml/min; Globulin 2.3 gm/dl (2.5-4.0); Magnesium 1.9 mg/dl (1.7-2.4); Potassium 3.8 mmol/L (3.5-5.1)
[2021-08-18 12:22] LABS: Troponin I High Sensitivity 6.6 pg/ml (0-14)
[2021-08-18] MEDS ORDERED: OPTIRAY 320 125ml IV ONE (12:27)
--- NOTE | 2021-08-18 12:42 | CT Scan Report ---
CT ANGIOGRAM OF THE CHEST CLINICAL HISTORY: Atypical chest pain. COMPARISON STUDY: Chest x-ray dated 08/18/2021. Abdominal CT dated 03/15/2021. TECHNIQUE: Following the IV administration of 120 cc of Optiray 320, CT angiogram of the chest was pe rformed from the upper abdomen to the thoracic inlet utilizing the pulmonary embolus protocol. Images are reviewed in the axial, sagittal, and coronal planes. 3-D MIPS images are created and assessed. I V contrast was administered without complication. A dose lowering technique was utilized adhering to the principles of ALARA. CT DOSE: 273.02 mGy.cm FINDINGS: Thyroid: Imaged portions of the thyroid gland are normal in size and attenuation. Thoracic aorta: There is mild atherosclerotic calcification of the thoracic aorta. There is mild aneu rysmal dilatation of the ascending thoracic aorta which measures up to 4.1 cm. The remainder of the t horacic aorta is normal in caliber, and the arch demonstrates bovine variant anatomy. No dissection i s seen. Pulmonary vasculature: The pulmonary trunk is normal in caliber. There are no filling defects identif ied in main, lobar, or segmental pulmonary branches to suggest pulmonary embolus. Heart: The heart is mildly enlarged and without pericardial effusion. There are coronary artery calci fications. Lungs and pleural spaces: There is no airspace consolidation or pleural effusion. Scarring/atelectasi s is seen at the lung bases. There are scattered calcified granulomas. The trachea and central airway s are clear. Diffuse peribronchial thickening is observed. Mediastinum: There is no mediastinal lymphadenopathy. Wendy: Clear. Axillae: There is no axillary lymphadenopathy. Upper abdomen: Pneumobilia is again seen in the left lobe of the liver. Partially visualized upper ab dominal viscera is otherwise within normal limits. Skeletal structures: The skeletal structures are osteopenic. Mild degenerative change and hyperkyphos is is seen in the thoracic spine. No lytic or blastic bony lesions are seen. IMPRESSION: 1. There is no evidence of pulmonary embolus in the main, lobar, or segmental pulmonary arteries. 2. There is no airspace consolidation or pleural effusion. 3. Diffuse peribronchial thickening suggests bronchitis/reactive airway disease. Clinical correlation will be required. 4. Mild cardiomegaly. 5. There is mild aneurysmal dilatation of the ascending thoracic aorta which measures up to 4.1 cm in diameter. ACT 112: Negative or not required by law. Electronically signed by: German Fung M.D. 08/18/2021 12:40 PM
--- NOTE | 2021-08-18 13:33 | History & Physical Report ---
Date of Service August 18, 2021 Assessment & Plan (1) NSTEMI (non-ST elevated myocardial infarction): Plan: Continue to trend troponin I q6h hourly overnight to peak. TTE. Aspirin 283mg PO given in ER. already taken aspirin 81mg and clopidogrel this morning. Start heparin low dose IV drip bolus and drip per cardiology recommendations. Continue metoprolol succinate however will increase dose to 25mg PO HS. Increase atorvastatin to high intensity 40mg PO daily. Nitro paste 1 inch to help with lower BP in addition to reduce risk of recurrent chest pain. HbA1C and lipid panel recently performed, no need to repeat this. HbA1C 5.5, LDL 49. Consult cardiology for cardiac cath tomorrow, discussed case with Dr Ricks on admission - NPO after .midnight (2) CAD (coronary artery disease): Plan: Prior NSTEMI with LAD stent in 2003 Management as above for NSTEMI (3) Hypertension: Plan: 1 inch nitro paste as above (4) Vitamin B12 deficiency: Plan: Noted history of this. Recommend increasing to daily supplementation given downtrending however suspect may have some intrinsic factor deficiency given downtrending on 1000 mcg PO x3/week and may need injections as an outpatient. Plan: VTE Prophylaxis - low risk Diet - heart healthy, NPO after midnight Disposition - admit to PCU Admission and Anticipated Discharge Date Admission Date: August 17, 2021 History of Present Illness Chief Complaint: Chest pain Primary Care Provider: Jono Faria MD Shona Gilliam is a 66 year old female who presents to the ER with chest pain. Substernal, severity 7-8/10 at worse, currently 0/10, radiates to left arm, associated nausea. Today's episodes happened around 10:30am at it's worst, occurred while on stationary bike, lasted until she took nitroglycerin in the ER at 11:40. Took aspirin 81mg PO today around 10:45 because of her chest pain. Took her other medications this morning with pantoprazole and clopidogrel. Similar other episode yesterday, lasted for 30 minutes, getting ready to go out but while sitting. Thinks drinking water helped. Specifically can remember other episodes last - put this down to extra strength Tylenol. No prior history of DVT/PE. She has a notable history of NSTEMI with LAD stent placed in December 2003. LDL at goal 49 mg/dL on atorvastatin 10mg PO daily. In the ER EKG showed no ischemic changes, high sensitivity troponin I increased from 6.6 -> 187.3. She given aspirin 243mg PO, nitroglycerin 0.4mg SL x2. Low dose heparin IV with bolus has been ordered. She was referred to medicine for admission and ongoing management of NSTEMI. Allergies Allergy/AdvReac Type Severity Reaction Status Date / Time morphine AdvReac Intermediate N/V; Verified 08/18/21 13:10 difficult to lift head Home Medications Medication Instructions Recorded Confirmed Type lifitegrast 5 % eye drops in a 1 drp OPHTHALMIC (EYE) BID 01/25/18 08/18/21 History dropperette (Xiidra) mecobalamin (vitamin B12) 1,000 1,000 mcg PO 3XWK tab 02/08/19 08/18/21 History mcg disintegrating tablet,sublingual atorvastatin 10 mg tablet 10 mg PO HS #90 tab 09/28/20 08/18/21 Rx cholecalciferol (vitamin D3) 25 25 mcg PO 3XWK 09/28/20 08/18/21 History mcg (1,000 unit) capsule pantoprazole 40 mg tablet,delayed 40 mg PO QAM #90 tab 10/12/20 08/18/21 Rx release metoprolol succinate 25 mg 12.5 mg PO HS #45 tab 10/19/20 08/18/21 Rx tablet,extended release 24 hr azelastine 205.5 mcg (0.15 %) 2 spray INTRANASAL HS 04/27/21 08/18/21 History nasal spray cholestyramine-aspartame 4 gram 4 g PO HS 04/27/21 08/18/21 History oral powder (Cholestyramine Light) clopidogrel 75 mg tablet 75 mg PO QAM 04/27/21 08/18/21 History dicyclomine 10 mg capsule 10 mg PO DAILY PRN 04/27/21 08/18/21 History ondansetron HCl 4 mg tablet 4 mg PO Q6 PRN #30 tab 05/19/21 08/18/21 Rx ferrous sulfate 325 mg (65 mg 325 mg PO HS 08/18/21 08/18/21 History iron) tablet (iron) Past Med/Surg History Medical History CAD (coronary artery disease) S/p LAD stent Dec 2003- Follows with Dr Gregorio Not on ASA due to GI issues/ulcers- on Plavix per cardio Diverticulosis Dry eye GERD (gastroesophageal reflux disease) Well controlled and stable Hyperlipidemia Per cardio records Hypertension Per cardio records- pt denies IBS (irritable bowel syndrome) Post cholecystectomy syndrome Low iron On iron supplement Giron neuroma Right side Myocardial Infarction 2003 Pre-diabetes Stable Renal calculi HX - no recent issues Vestibular neuronitis of right ear Stable - occ balance issues Surgical History History of adenoidectomy History of cardiac cath 2004 - [facility] - 1 STENT - FOLLOWS W/ DR. GREGORIO History of colonoscopy History of ERCP History of heart artery stent X 1 (2003) History of hysterectomy History of removal of [place] Rt [place] [facility] [place] of tonsillectomy Hx laparoscopic cholecystectomy Laparoscopic Cholecystectomy Dr. Patterson 04/25/2020 Family History Family/Other Myocardial infarction Grandmother (Maternal) Heart disease Cancer Mother Heart disease Grandfather (Maternal) Gastric cancer Other Family history of diabetes mellitus Denies family history of Ovarian cancer Prostate cancer Breast cancer Colorectal cancer Social History Smoking Status: Never smoker Second Hand Exposure: Yes; Hx Alcohol Use: Yes Alcohol type: wine Hx Substance Use: No Preferred Language: Maori Communication Ability: Effective Visual Impairment: No Limitations Hearing Ability: Normal Back Office Medical Assistant Required: No Beliefs That Will Affect Care: None marital status: Current Living Situation: Spouse current occupational status: retired How many Children do You have: 2 Feels Safe at Home: Yes Safety Concerns: Feels Safe At This Time Childhood Exposure to Second-Hand Smoke: Yes Dental Care, Regularly: Yes Physical Activity Frequency: 5-6 Times per Week Seatbelt Use: always Sunscreen Use: Yes Assistive Devices: Glasses Review of Systems Review of Systems: All systems reviewed & are unremarkable except as noted in HPI & below Physical Exam Constitutional: WD/WN, vitals as above Eyes: + anicteric sclerae; normal pupil size ENMT: external ear and nose normal, oropharynx normal Neck: trachea midline, no thyromegaly Respiratory: normal respiratory effort, lungs clear to auscultation Cardiovascular: RRR, no murmur, no edema Gastrointestinal (Abdomen): normal bowel sounds, soft, nontender, no hepatosplenomegaly Musculoskeletal: no cyanosis or clubbing, extremities motor strength 5/5 Skin: no rashes, warm and dry Neurologic: moves all extremities and awake; not confused Psychiatric: A+Ox3, euthymic affect Results & Data Results & Data ([facility]) Vital Signs (Past 12 Hours) Vital Signs Pulse Resp BP Pulse Ox 08/18/21 11:09 101 H 20 184/108 H 98 Laboratory Results Abnormal lab results 08/18/21 08/18/21 08/18/21 Range/Units 11:20 11:20 11:20 RBC 5.46 H (4.2-5.4) M/uL MCV 75.3 L (80-100) fL MCH 24.7 L (25-34) pg RDW Std Deviation 35.5 L (36.4-46.3) fL MPV 10.7 H (7.4-10.4) fL D-Dimer 1980 H* (0-500) ug/L FEU Creatinine 0.58 L (0.6-1.2) mg/dl BUN/Creatinine Ratio 25.9 H (10-20) Glucose 107 H (70-99(Fasting)) mg/dl Total Bilirubin 1.7 H (0.2-1.0) mg/dl Globulin 2.3 L (2.5-4.0) gm/dl Diagnostic Findings SINGLE VIEW CHEST CLINICAL HISTORY: Atypical chest pain. FINDINGS: An AP, portable, upright chest radiograph is compared to study dated 05/03/2021. The heart is mildly enlarged. The pulmonary vasculature is noncongested. Chronic interstitial thickening is similar to previous. The lungs and pleural spaces are clear. No pneumothorax is seen. The skeletal structures are osteopenic. The bony thorax is grossly intact. IMPRESSION: No active disease in the chest. CT ANGIOGRAM OF THE CHEST CLINICAL HISTORY: Atypical chest pain. COMPARISON STUDY: Chest x-ray dated 08/18/2021. Abdominal CT dated 03/15/2021. TECHNIQUE: Following the IV administration of 120 cc of Optiray 320, CT angio gram of the chest was performed from the upper abdomen to the thoracic inlet utilizing the pulmonary embolus protocol. Images are reviewed in the axial, sagittal, and coronal planes. 3-D MIPS images are created and assessed. IV contrast was administered without complication. A dose lowering technique was utilized adhering to the principles of ALARA. CT DOSE: 273.02 mGy.cm FINDINGS: Thyroid: Imaged portions of the thyroid gland are normal in size and attenuation. Thoracic aorta: There is mild atherosclerotic calcification of the thoracic aorta. There is mild aneurysmal dilatation of the ascending thoracic aorta which measures up to 4.1 cm. The remainder of the thoracic aorta is normal in caliber, and the arch demonstrates bovine variant anatomy. No dissection is seen. Pulmonary vasculature: The pulmonary trunk is normal in caliber. There are no filling defects identified in main, lobar, or segmental pulmonary branches to suggest pulmonary embolus. Heart: The heart is mildly enlarged and without pericardial effusion. There are coronary artery calcifications. Lungs and pleural spaces: There is no airspace consolidation or pleural effusion. Scarring/atelectasis is seen at the lung bases. There are scattered calcified granulomas. The trachea and central airways are clear. Diffuse peribronchial thickening is observed. Mediastinum: There is no mediastinal lymphadenopathy. Wendy: Clear. Axillae: There is no axillary lymphadenopathy. Upper abdomen: Pneumobilia is again seen in the left lobe of the liver. Partially visualized upper abdominal viscera is otherwise within normal limits. Skeletal structures: The skeletal structures are osteopenic. Mild degenerative change and hyperkyphosis is seen in the thoracic spine. No lytic or blastic bony lesions are seen. IMPRESSION: 1. There is no evidence of pulmonary embolus in the main, lobar, or segmental pulmonary arteries. 2. There is no airspace consolidation or pleural effusion. 3. Diffuse peribronchial thickening suggests bronchitis/reactive airway disease. Clinical correlation will be required. 4. Mild cardiomegaly. 5. There is mild aneurysmal dilatation of the ascending thoracic aorta which measures up to 4.1 cm in diameter. Medications Administered ER Medications Given: NSS 500ml bolus Ondansetron 4mg IV Aspirin 243mg PO ECG Indication: chest pain Rate (beats per minute): 101 Rhythm: normal sinus Findings: no acute ischemic change Comparison ECG Date: from (May 03, 2021) Change: the following changes noted (PACs no longer present) Code Status & VTE Plan Code Status Full VTE Prophylaxis Plan VTE Prophylaxis will be ordered: Yes PG Care Time/CCT Total # of Minutes Spent Total Time Spent with Patient: Total time spent is greater than 50% in coordination of care (as documented) at patient's floor/unit and/or counseling patient: Coding Level of Care Code 34146 Initial Inpt Care Lvl 3 Diagnoses Hypertension I10 CAD (coronary artery disease) I25.10 NSTEMI (non-ST elevated myocardial infarction) I21.4 Vitamin B12 deficiency E53.8
--- NOTE | 2021-08-18 14:33 | Electrocardiogram Report ---
Test Reason : Blood Pressure : / mmHG Vent. Rate : 086 BPM Atrial Rate : 086 BPM P-R Int : 164 ms QRS Dur : 082 ms QT Int : 384 ms P-R-T Axes : 053 -05 019 degrees QTc Int : 459 ms Normal sinus rhythm Poor R wave progression, consider anterior DC vs. lead placement vs. LVH Abnormal ECG When compared with ECG of 18-AUG-2021 11:17, No significant change was found Confirmed by Luke Ricks ([id number]) on 08/18/2021 2:35:36 PM Referred By: REFERRED SELF Confirmed By:Luke Ricks
--- NOTE | 2021-08-18 14:33 | Electrocardiogram Report ---
Test Reason : Blood Pressure : / mmHG Vent. Rate : 101 BPM Atrial Rate : 101 BPM P-R Int : 162 ms QRS Dur : 090 ms QT Int : 350 ms P-R-T Axes : 034 -04 037 degrees QTc Int : 453 ms Sinus tachycardia Poor R-wave progression: anterior MA vs. lead placement vs. LVH Abnormal ECG When compared with ECG of 03-MAY-2021 09:11, Premature atrial complexes are no longer Present Nonspecific T wave abnormality no longer present Confirmed by Luke Ricks ([id number]) on 08/18/2021 2:32:54 PM Also confirmed by Luke Ricks ([id number]), video tape editor Julio Cesar Marrero ([id number]) on 08/18/2021 2:33:21 PM Referred By: REFERRED SELF Confirmed By:Luke Ricks
[2021-08-18] MEDS ORDERED: Heparin IV Adult Wt-Based Low-Dose WITH Bolus Protocol IV STA (14:41)
[2021-08-18] MEDS ORDERED: NITROGLYCERIN 2% OINTMENT 30GM TUBE EXT STA (14:43)
[2021-08-18] MEDS ORDERED: Heparin IV Adult Wt-Based Low-Dose WITH Bolus Protocol IV SCH (14:46)
[2021-08-18 14:58] LABS: Partial Thromboplastin Time 26.2 Seconds (21.0-31.0); Prothrombin Time 10.8 Seconds (9.0-12.0)
[2021-08-18] MEDS ORDERED: HEPARIN SOD (PORCINE) 1000 UNIT/ML IV ONE ×3 (14:58→22:15)
[2021-08-18] MEDS ORDERED: HEPARIN SODIUM/DEXTROSE 25,000 UNITS/500 ML BAG IV SCH ×2 (15:00)
--- NOTE | 2021-08-18 16:27 | XCELERA ---
[id number]
[2021-08-18] MEDS ORDERED: POTASSIUM CHLORIDE CRTAB 20 MEQ TABCR PO STA (17:12)
[2021-08-18] MEDS ORDERED: MAGNESIUM SULFATE / D5W 1 GM/100 ML BAG IV ONE (17:12)
[2021-08-18] MEDS ORDERED: NITROGLYCERIN 2% OINTMENT 30GM TUBE EXT SCH (18:00)
[2021-08-18] MEDS ORDERED: STAT IV Infusion **Titration per Protocol STA (19:43)
[2021-08-18] MEDS ORDERED: NITROGLYCERIN/D5W 100MCG/ML 250 ML IV SCH (19:45)
[2021-08-18] MEDS: ONDANSETRON INJ 2 MG/ML 2 ML VIAL IV PRN ×2 (20:06→22:33)
--- NOTE | 2021-08-18 20:58 | Critical Care Consultation ---
Date of Consultation August 18, 2021 Assessment & Plan (1) Admitted to intensive care unit: Reason Critically Ill: 66-year-old female initially admitted with complaints of chest pain now with elevated troponin and ongoing stuttering chest pain consistent with unstable angina requiring initiation of nitroglycerin drips and heparin drips. To be monitored in the ICU for ongoing management NEURO - * CAM ICU: NEGATIVE CARDIAC/VASCULAR - * Unstable Angina: * Concerning in the patient w/ a h/o CAD and climbing troponins. * Per primary service, interventionalist recommends Nitro gtt and continued heparin trial for symptoms control initially. * Titrate up Nitro gtt as BP tolerates. * If any changing/worsening symptoms, patient may require cath. * EKG: NSR @ [address] elevations noted. QTc 447 ms. * Monitor on telemetry. RESPIRATORY - * No h/o pulmonary disease. * Saturating well on room air. GI/NUTRITION - * AHA diet. * Prophylaxis: Protonix RENAL/LYTES - * No significant electrolyte derangements. - * Strict I&Os ENDO - * No h/o DM or Thyroid Dz * BSGs per unit protocol. ISS --> gtt per unit policy. HEME - * Stable H&H * Monitor for s/s bleeding while on Heparin gtt. ID - * No concerns for infection at this time. LINES/IV ACCESS - * PIVs x2 DVT PROPHYLAXIS - * Heparin gtt * SCDs I have personally spent 35 minutes of critical care time in the direct management of this patient. This is a life/limb threatening event. This includes time spent evaluating patient, direct bedside care, chart review, placing orders, interpretation of diagnostic studies, discussion with consultants, patient, and family members, as well as other required patient management activities. This time is exclusive of all separately billable procedures, and teaching time and separate from and in addition to any other critical care service time. Thank you for allowing us to participate in the care of this patient. Please refer to my attending physician's documentation for any further recommendations. (2) Unstable angina: (3) Chest pain: (4) NSTEMI (non-ST elevated myocardial infarction): (5) Hypertension: (6) Acute non-ST elevation myocardial infarction (NSTEMI): (7) Aortic aneurysm: History of Present Illness Attending Physician: Derian Matute MD History of Present Illness Patient is a 66-year-old female with a significant past medical history of c oronary artery disease status post PTCI with drug-eluting stent placement in 2003, hypertension, hyperlipidemia who presented to the emergency department today with worsening symptoms of chest pain over the last few days. The patient reports that she has been having stuttering chest pain like symptoms since the beginning of the week. She states that today, while at [employer], she developed intense chest pain with associated lightheadedness and headache as well as tingling in the LEFT upper arm. She states that she had hypertension that she measured at home which prompted her visit to the emergency room. Initially, patient without EKG changes or elevation of troponin. Patient was placed on heparin drip at the recommendation of cardiology. Per nursing notes, the patient was having no complaints of chest pain during evaluation. In discussion with patient, she does report that she has been experiencing stuttering chest pain throughout the day. She states that while her symptoms have improved from her presenting chest discomfort is approximately 8/10. She does state that she occasionally has mid central 5/10 chest pain with radiation to the upper back and down the RIGHT arm. She reports associated nausea and burning in her stomach as well. She reports that again, her symptoms have improved, however they are still persistent, but wax and wane in nature. Currently, during conversation, she is on the nitroglycerin drip and is rating her discomfort as 3/10. She states that her symptoms have improved greatly since addition of nitroglycerin. She complains of mild headache. She states that her symptoms of chest discomfort are different than her prior [place] in 2003. Patient currently denies symptoms of dizziness, lightheadedness, blurry vision, double vision, palpitations, shortness of breath, hemoptysis, vomiting, or abdominal discomfort. Allergies Allergy/AdvReac Type Severity Reaction Status Date / Time morphine AdvReac Intermediate N/V; Verified 08/18/21 13:10 difficult to lift head Home Medications Medication Instructions Recorded Confirmed Type lifitegrast 5 % eye drops in a 1 drp OPHTHALMIC (EYE) BID 01/25/18 08/18/21 History dropperette (Xiidra) mecobalamin (vitamin B12) 1,000 1,000 mcg PO 3XWK tab 02/08/19 08/18/21 History mcg disintegrating tablet,sublingual atorvastatin 10 mg tablet 10 mg PO HS #90 tab 09/28/20 08/18/21 Rx cholecalciferol (vitamin D3) 25 25 mcg PO 3XWK 09/28/20 08/18/21 History mcg (1,000 unit) capsule pantoprazole 40 mg tablet,delayed 40 mg PO QAM #90 tab 10/12/20 08/18/21 Rx release metoprolol succinate 25 mg 12.5 mg PO HS #45 tab 10/19/20 08/18/21 Rx tablet,extended release 24 hr azelastine 205.5 mcg (0.15 %) 2 spray INTRANASAL HS 04/27/21 08/18/21 History nasal spray cholestyramine-aspartame 4 gram 4 g PO HS 04/27/21 08/18/21 History oral powder (Cholestyramine Light) clopidogrel 75 mg tablet 75 mg PO QAM 04/27/21 08/18/21 History dicyclomine 10 mg capsule 10 mg PO DAILY PRN 04/27/21 08/18/21 History ondansetron HCl 4 mg tablet 4 mg PO Q6 PRN #30 tab 05/19/21 08/18/21 Rx ferrous sulfate 325 mg (65 mg 325 mg PO HS 08/18/21 08/18/21 History iron) tablet (iron) Patient History Medical History CAD (coronary artery disease) S/p LAD stent Dec 2003- Follows with Dr Gregorio Not on ASA due to GI issues/ulcers- on Plavix per cardio Diverticulosis Dry eye GERD (gastroesophageal reflux disease) Well controlled and stable Hyperlipidemia Per cardio records Hypertension Per cardio records- pt denies IBS (irritable bowel syndrome) Post cholecystectomy syndrome Low iron On iron supplement Giron neuroma Right side Myocardial Infarction 2003 Pre-diabetes Stable Renal calculi HX - no recent issues Vestibular neuronitis of right ear Stable - occ balance issues Surgical History History of adenoidectomy History of cardiac cath 2003 - [place] - [facility] - 1 STENT - FOLLOWS W/ DR. GREGORIO History of colonoscopy History of ERCP History of heart artery stent X 1 (2003) History of hysterectomy History of removal of [place] [facility] [place] of tonsillectomy Hx laparoscopic cholecystectomy Laparoscopic Cholecystectomy Dr. Patterson 04/25/2020 Family History Family/Other Myocardial infarction Grandmother (Maternal) Heart disease Cancer Mother Heart disease Grandfather (Maternal) Gastric cancer Other Family history of diabetes mellitus Denies family history of Ovarian cancer Prostate cancer Breast cancer Colorectal cancer Social History Smoking Status: Never smoker Second Hand Exposure: Yes; Hx Alcohol Use: Yes Alcohol type: wine Hx Substance Use: No Preferred Language: Lebanese Communication Ability: Effective Visual Impairment: No Limitations Hearing Ability: Normal Art Tracer Required: No Beliefs That Will Affect Care: None marital status: Current Living Situation: Spouse current occupational status: retired How many Children do You have: 2 Feels Safe at Home: Yes Safety Concerns: Feels Safe At This Time Childhood Exposure to Second-Hand Smoke: Yes Dental Care, Regularly: Yes Physical Activity Frequency: 5-6 Times per Week Seatbelt Use: always Sunscreen Use: Yes Assistive Devices: Glasses Review of Systems Review of Systems: A complete 10 point review of systems was reviewed with the patient with pertinent positives and negatives as per history of present illness. All else were negative. Physical Exam Physical Exam: VITAL SIGNS - Vital signs and nursing notes were reviewed. GENERAL - 66-year-old female appearing her stated age who is in no acute distress. Communicates well with provider and answers questions appropriately. HEAD - NC/AT. EYES - PERRL with EOMI bilaterally. Sclera anicteric. EARS - No deformities of external structures noted on gross examination bilaterally. NOSE - Midline and without cyanosis. No epistaxis or purulent drainage noted. MOUTH/OROPHARYNX - Without perioral cyanosis. B NECK - Neck with FROM. LUNGS - Chest wall symmetric without accessory muscle use, intercostals retractions, or central cyanosis. Normal vesicular breath sounds CTA B/L. No wheezes, rales, or rhonchi appreciated. CARDIAC - RRR with S1/S2. No murmur, rubs, or gallops appreciated. No reproducible tenderness to palpation appreciated over the anterior chest wall. ABDOMEN - Abdominal contour flat without pulsations or visible masses. BS normoactive all four quadrants. No tenderness, palpable masses, hepatosplenomegaly, or ascites noted. EXTREMITIES - No clubbing or peripheral cyanosis. No pretibial edema present. +3/5 radial and dorsalis pedis pulses palpated throughout. +5/5 strength noted in UE/LE bilaterally. NEUROLOGIC - Cranial nerves II through XII grossly intact. Sensory intact to light touch throughout. PSYCH - A&Ox3 and cooperates fully with examiner. Pt is very pleasant and interacts well with examiner. Results & Data Results & Data ([facility]) Vital Signs (Past 12 Hours) Vital Signs Temp Pulse Pulse Resp BP BP Pulse Ox 08/18/21 20:46 36.7 C 08/18/21 20:32 95 H 23 132/76 94 08/18/21 20:15 92 H 151/82 H 08/18/21 19:35 36.6 C 90 16 145/97 H 96 08/18/21 17:13 36.6 C 89 18 153/89 H 98 08/18/21 16:39 36.8 C 16 98 08/18/21 16:00 89 21 158/93 H 08/18/21 15:55 73 18 147/72 H 98 08/18/21 15:30 97 H 22 08/18/21 15:00 96 H 24 151/95 H 08/18/21 14:42 20 163/101 H 08/18/21 14:30 89 19 08/18/21 14:00 22 08/18/21 13:30 79 18 08/18/21 13:00 83 14 08/18/21 12:14 87 18 148/77 H 08/18/21 12:00 91 H 17 119/88 08/18/21 11:56 94 H 20 149/84 H 08/18/21 11:49 102 H 22 174/90 H 08/18/21 11:30 93 H 20 98 08/18/21 11:28 91 H 19 98 08/18/21 11:09 101 H 20 184/108 H 98 Coding Level of Care Code Critical Care 1st 30-74 mins Diagnoses Admitted to intensive care unit Z78.9 Unstable angina I20.0 Chest pain R07.9 Chest pain type: unspecified NSTEMI (non-ST elevated myocardial infarction) I21.4 Hypertension I10 Hypertension type: unspecified Acute non-ST elevation myocardial infarction (NSTEMI) I21.4 Aortic aneurysm I71.2 Aortic location: thoracic aorta Presence of rupture: without rupture Time Spent (min) 35 (1) Aortic aneurysm Aortic location: thoracic aorta Presence of rupture: without rupture Qualified Code(s): I71.2 - Thoracic aortic aneurysm, without rupture (2) Chest pain Chest pain type: unspecified Qualified Code(s): R07.9 - Chest pain, unspecified (3) Hypertension Hypertension type: unspecified Qualified Code(s): I10 - Essential (primary) hypertension
[2021-08-18] MEDS ORDERED: CHOLESTYRAMINE LIGHT 4 GM PKT PO SCH (21:00)
[2021-08-18] MEDS ORDERED: FERROUS SULFATE 325 MG TAB PO SCH (21:00)
[2021-08-18] MEDS ORDERED: ATORVASTATIN 10 MG TAB PO SCH (21:00)
[2021-08-18] MEDS ORDERED: ATORVASTATIN 40 MG TAB PO SCH (21:00)
[2021-08-18] MEDS ORDERED: METOPROLOL SUCC 25MG EXT REL TAB PO SCH (21:00)
[2021-08-18] MEDS: NITROGLYCERIN 2% OINTMENT 30GM TUBE EXT SCH (21:19)
[2021-08-18] MEDS: ACETAMINOPHEN 500 MG TAB PO PRN (21:54)
[2021-08-18 21:59] LABS: Partial Thromboplastin Ratio 1.2; Partial Thromboplastin Time 34.2 Seconds (21.0-31.0)
[2021-08-19] MEDS ORDERED: ONDANSETRON INJ 2 MG/ML 2 ML VIAL IV STA (01:36)
--- NOTE | 2021-08-19 01:37 | Communication Note ---
Date of Service: August 19, 2021 0100: Approached by nursing staff as patient is complaining of persistent nausea and a headache. She had received Tylenol earlier in the shift after she had started with a slight headache after initiation of Nitro gtt. I reevaluated the patient. She reports that her chest pain and upper back pain has completely resolved. She states that her RIGHT arm pain had resolved as well. Her only complaint at this time is persistent nausea. In conversation, she informs me that she has actually been experiencing nausea for the past several months to years which she equates to her ongoing gallbladder issues. She does not feel that her nausea is any different than she experiences at home just a bit more intense. At this point, after discussion with the patient, she has improved from when the nitroglycerin was initially started. We will repeat her troponin now to assess if it continues to elevate. An EKG was obtained which demonstrated no acute findings otherwise. At this point, we will continue to stay the course left she were to develop return or worsening symptoms. I have personally spent 32 minutes of critical care time in the direct management of this patient. This is a life/limb threatening event. This includes time spent evaluating patient, direct bedside care, chart review, placing orders, interpretation of diagnostic studies, discussion with consultants, patient, and family members, as well as other required patient management activities. This time is exclusive of all separately billable procedures, and teaching time and separate from and in addition to any other critical care service time. Coding Level of Care Code Critical Care 1st 30-74 mins Time Spent (min) 32
[2021-08-19] MEDS: NITROGLYCERIN 2% OINTMENT 30GM TUBE EXT SCH ×2 (03:10→10:16)
[2021-08-19 04:43] LABS: Basophils # (auto) 0.01 K/uL (0-0.2); Basophils % (auto) 0.2 %; Eosinophils # (auto) 0.08 K/uL (0-0.5); Eosinophils % (auto) 1.3 %; Hematocrit (blood only) 36.1 % (37-47); Hemoglobin 11.5 g/dL (12.0-16.0); Immature Granulocytes # (auto) 0.01 K/uL (0.00-0.02); Immature Granulocytes % (auto) 0.2 %; Lymphocytes # (auto) 1.08 K/uL (1.2-3.4); Lymphocytes % (auto) 17.9 %; Mean Corpuscular Hemoglobin 23.7 pg (25-34); Mean Corpuscular Hgb Conc 31.9 g/dL (32-36); Mean Corpuscular Volume 74.3 fL (80-100); Mean Platelet Volume 9.5 fL (7.4-10.4); Monocytes # (auto) 0.68 K/uL (0.11-0.59); Monocytes % (auto) 11.3 %; Neutrophils # (auto) 4.17 K/uL (1.4-6.5); Neutrophils % (auto) 69.1 %; Platelet Count 170 K/uL (130-400); RDW Standard Deviation 35.3 fL (36.4-46.3); Red Blood Count 4.86 M/uL (4.2-5.4); White Blood Count 6.03 K/uL (4.8-10.8)
[2021-08-19 04:53] LABS: Partial Thromboplastin Ratio 1.5
[2021-08-19 05:04] LABS: Calcium 8.4 mg/dl (8.5-10.1); Creatinine Clr Calc Pharmacy 75.4 ml/min; Est GFR (African American) 105.7 ml/min; Est GFR (Non-African American) 91.2 ml/min; Magnesium 2.1 mg/dl (1.7-2.4); Phosphorus 4.1 mg/dl (2.5-4.9); Potassium 3.9 mmol/L (3.5-5.1); RBC Morphology Unremarkable
[2021-08-19] MEDS: ACETAMINOPHEN 500 MG TAB PO PRN (06:34)
--- NOTE | 2021-08-19 07:30 | Hospitalist Progress Note ---
Date of Service August 19, 2021 Assessment & Plan (1) NSTEMI (non-ST elevated myocardial infarction): Plan: Continue to trend troponin I q6h hourly overnight to peak. TTE. Aspirin 283mg PO given in ER. already taken aspirin 81mg and clopidogrel this morning. Start heparin low dose IV drip bolus and drip per cardiology recommendations. Continue metoprolol succinate however will increase dose to 25mg PO HS. Increase atorvastatin to high intensity 40mg PO daily. HbA1C and lipid panel recently performed, no need to repeat this. HbA1C 5.5, LDL 49. Consult cardiology to consider cardiac cath, discussed case with Dr Ricks on admission (2) CAD (coronary artery disease): Plan: Prior NSTEMI with LAD stent in 2003 Management as above for NSTEMI (3) Hypertension: Plan: 1 inch nitro paste as above (4) Vitamin B12 deficiency: Plan: Noted history of this. Recommend increasing to daily supplementation given downtrending however suspect may have some intrinsic factor deficiency given downtrending on 1000 mcg PO x3/week and may need injections as an outpatient. Plan: VTE Prophylaxis - low risk Diet - heart healthy, NPO after midnight Disposition - admit to PCU Admission and Anticipated Discharge Date Admission Date: August 18, 2021 Results & Data Results & [facility] ([facility]) Vital Signs (Past 12 Hours) Vital Signs Temp Pulse Pulse Resp BP BP Pulse Ox 08/19/21 06:00 72 18 126/81 94 08/19/21 05:00 71 20 93/53 L 93 08/19/21 04:03 98.2 F 08/19/21 04:00 71 20 95/57 L 95 08/19/21 03:30 61 19 81/51 L 93 08/19/21 03:00 74 19 96/52 L 94 08/19/21 02:45 73 19 92/52 L 94 08/19/21 02:30 78 21 94/59 L 94 08/19/21 02:00 76 19 112/70 94 08/19/21 01:30 83 19 106/66 93 08/19/21 01:16 84 16 90/60 L 90 08/19/21 01:00 79 17 92/53 L 90 08/19/21 00:14 98.2 F 08/19/21 00:00 86 19 97/57 L 92 08/18/21 23:45 87 16 96/59 L 93 08/18/21 23:15 83 18 104/78 95 08/18/21 23:00 87 18 104/78 96 08/18/21 22:31 101 H 25 H 121/88 95 08/18/21 22:15 92 H 26 H 120/74 95 08/18/21 22:00 96 H 19 119/84 95 08/18/21 21:45 98 H 21 126/83 94 08/18/21 21:30 96 H 14 115/68 96 08/18/21 21:16 93 H 24 124/66 96 08/18/21 21:00 103 H 15 113/79 93 08/18/21 20:46 98.1 F 08/18/21 20:45 91 H 23 125/73 94 08/18/21 20:32 95 H 23 132/76 94 08/18/21 20:15 92 H 151/82 H 08/18/21 19:35 97.9 F 90 16 145/97 H 96 PG Care Time/CCT Total # of Minutes Spent Total Time Spent with Patient: Total time spent is greater than 50% in coordination of care (as documented) at patient's floor/unit and/or counseling patient: Coding Diagnoses NSTEMI (non-ST elevated myocardial infarction) I21.4 CAD (coronary artery disease) I25.10 Hypertension I10 Vitamin B12 deficiency E53.8
--- NOTE | 2021-08-19 08:43 | Pre Anesthesia Assessment ---
Date of Service August 19, 2021 Pre Sedation Assessment Vital Signs Temp Pulse Pulse Resp BP BP Pulse Ox 08/19/21 08:23 98.4 F 08/19/21 08:00 73 24 93 08/19/21 07:46 75 28 H 120/95 93 08/19/21 07:32 79 20 143/74 H 95 08/19/21 07:15 100/61 95 08/19/21 07:00 103/62 93 08/19/21 06:00 72 18 126/81 94 08/19/21 05:00 71 20 93/53 L 93 08/19/21 04:03 98.2 F 08/19/21 04:00 71 20 95/57 L 95 08/19/21 03:30 61 19 81/51 L 93 08/19/21 03:00 74 19 96/52 L 94 08/19/21 02:45 73 19 92/52 L 94 08/19/21 02:30 78 21 94/59 L 94 08/19/21 02:00 76 19 112/70 94 08/19/21 01:30 83 19 106/66 93 08/19/21 01:16 84 16 90/60 L 90 08/19/21 01:00 79 17 92/53 L 90 08/19/21 00:14 98.2 F 08/19/21 00:00 86 19 97/57 L 92 08/18/21 23:45 87 16 96/59 L 93 08/18/21 23:15 83 18 104/78 95 08/18/21 23:00 87 18 104/78 96 08/18/21 22:31 101 H 25 H 121/88 95 08/18/21 22:15 92 H 26 H 120/74 95 08/18/21 22:00 96 H 19 119/84 95 08/18/21 21:45 98 H 21 126/83 94 08/18/21 21:30 96 H 14 115/68 96 08/18/21 21:16 93 H 24 124/66 96 08/18/21 21:00 103 H 15 113/79 93 08/18/21 20:46 98.1 F 08/18/21 20:45 91 H 23 125/73 94 08/18/21 20:32 95 H 23 132/76 94 08/18/21 20:15 92 H 151/82 H 08/18/21 19:35 97.9 F 90 16 145/97 H 96 08/18/21 17:13 97.9 F 89 18 153/89 H 98 08/18/21 16:39 98.2 F 16 98 08/18/21 16:00 89 21 158/93 H 08/18/21 15:55 73 18 147/72 H 98 08/18/21 15:30 97 H 22 08/18/21 15:00 96 H 24 151/95 H 08/18/21 14:42 20 163/101 H 08/18/21 14:30 89 19 08/18/21 14:00 22 08/18/21 13:30 79 18 08/18/21 13:00 83 14 08/18/21 12:14 87 18 148/77 H 08/18/21 12:00 91 H 17 119/88 08/18/21 11:56 94 H 20 149/84 H 08/18/21 11:49 102 H 22 174/90 H 08/18/21 11:30 93 H 20 98 08/18/21 11:28 91 H 19 98 08/18/21 11:09 101 H 20 184/108 H 98 Cardiovascular RRR, no murmur, no edema Respiratory normal respiratory effort, lungs clear to auscultation Pre-Sedation Airway Assessment Smoking Status: Never smoker Hx Sleep Apnea: No Hx Difficult Intubation: No Short, Thick Neck: No Thyromental Distance: > or= 3.5 Finger Breadths Oral Cavity: + WNL Mallampati Class: III ASA: ASA3 Procedure Planning Contraindications for Sedation: none Current Medications Reviewed: Yes Notes The planned sedation has been discussed with the patient. Informed Consent was obtained. I have identified the patient, determined the appropriateness of sedation and have assessed the patient immediately prior to the procedure. All medicine(s) and interventions are by my order.
[2021-08-19] MEDS ORDERED: NITROGLYCERIN SL 0.4 MG/TAB TAB ONE (09:00)
[2021-08-19] MEDS ORDERED: CLOPIDOGREL BISULFATE 75 MG TAB PO SCH (09:00)
[2021-08-19] MEDS ORDERED: ASPIRIN 81 MG ECTAB PO SCH (09:00)
[2021-08-19] MEDS ORDERED: PANTOprazole 40 MG TAB PO SCH (09:00)
--- NOTE | 2021-08-19 09:06 | Electrocardiogram Report ---
Test Reason : Blood Pressure : / mmHG Vent. Rate : 085 BPM Atrial Rate : 085 BPM P-R Int : 154 ms QRS Dur : 080 ms QT Int : 376 ms P-R-T Axes : 040 -04 012 degrees QTc Int : 447 ms Normal sinus rhythm Poor R wave progression, consider anterior MA vs. lead placement vs. LVH Abnormal ECG When compared with ECG of 18-AUG-2021 12:45, No significant change Confirmed by Luke Ricks ([id number]) on 08/19/2021 9:06:25 AM Referred By: REFERRED SELF Confirmed By:Luke Ricks
--- NOTE | 2021-08-19 09:07 | Electrocardiogram Report ---
Test Reason : Blood Pressure : / mmHG Vent. Rate : 082 BPM Atrial Rate : 082 BPM P-R Int : 170 ms QRS Dur : 080 ms QT Int : 396 ms P-R-T Axes : 024 -18 -08 degrees QTc Int : 462 ms Sinus rhythm with Premature atrial complexes in a pattern of bigeminy Poor R wave progression, consider anterior AL vs. lead placement vs. LVH Abnormal ECG When compared with ECG of 18-AUG-2021 20:12, Premature atrial complexes are now Present Confirmed by Luke Ricks ([id number]) on 08/19/2021 9:06:52 AM Referred By: REFERRED SELF Confirmed By:Luke Ricks
[2021-08-19] MEDS ORDERED: MIDAZOLAM HCL 1 MG/ML 2ML VIAL ONE (09:24)
[2021-08-19] MEDS ORDERED: HEPARIN (PORCINE) 1000 UNIT/ML 10 ML (CATH LAB USE ONLY) ONE (09:25)
[2021-08-19] MEDS ORDERED: fentaNYL citrate 100 MCG/2 ML VIAL ONE (09:25)
[2021-08-19] MEDS ORDERED: NITROGLYCERIN/D5W 100MCG/ML 20ML SYR ONE (09:25)
[2021-08-19] MEDS ORDERED: niCARdipine HCL INJ 2.5 MG/ML 10 ML AMP ONE (09:25)
--- NOTE | 2021-08-19 09:29 | Critical Care Progress Note ---
Date of Service August 19, 2021 Assessment & Plan (1) Admitted to intensive care unit: Plan: Reason Critically Ill: 66-year-old female initially admitted with complaints of chest pain now with elevated troponin and ongoing stuttering chest pain consistent with unstable angina requiring initiation of nitroglycerin drips and heparin drips. To be monitored in the ICU for ongoing management NEURO - * CAM ICU: NEGATIVE CARDIAC/VASCULAR - * Unstable Angina: Improved, off nitroglycerine RESPIRATORY - * No h/o pulmonary disease. * Saturating well on room air. GI/NUTRITION - * AHA diet. * Prophylaxis: Protonix RENAL/LYTES - * No significant electrolyte derangements. - * Strict I&Os ENDO - * No h/o DM or Thyroid Dz * BSGs per unit protocol. ISS --> gtt per unit policy. HEME - * Stable H&H ID - * No concerns for infection at this time. 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 Results & Data Results & Data ([facility]) Vital Signs (Past 12 Hours) Vital Signs Temp Pulse Resp BP Pulse Ox 08/19/21 08:23 36.9 C 08/19/21 08:00 73 24 93 08/19/21 07:46 75 28 H 120/95 93 08/19/21 07:32 79 20 143/74 H 95 08/19/21 07:15 100/61 95 08/19/21 07:00 103/62 93 08/19/21 06:00 72 18 126/81 94 08/19/21 05:00 71 20 93/53 L 93 08/19/21 04:03 36.8 C 08/19/21 04:00 71 20 95/57 L 95 08/19/21 03:30 61 19 81/51 L 93 08/19/21 03:00 74 19 96/52 L 94 08/19/21 02:45 73 19 92/52 L 94 08/19/21 02:30 78 21 94/59 L 94 08/19/21 02:00 76 19 112/70 94 08/19/21 01:30 83 19 106/66 93 08/19/21 01:16 84 16 90/60 L 90 08/19/21 01:00 79 17 92/53 L 90 08/19/21 00:14 36.8 C 08/19/21 00:00 86 19 97/57 L 92 08/18/21 23:45 87 16 96/59 L 93 08/18/21 23:15 83 18 104/78 95 08/18/21 23:00 87 18 104/78 96 08/18/21 22:31 101 H 25 H 121/88 95 08/18/21 22:15 92 H 26 H 120/74 95 08/18/21 22:00 96 H 19 119/84 95 08/18/21 21:45 98 H 21 126/83 94 08/18/21 21:30 96 H 14 115/68 96 Critical Care Results & Data Vital Signs (Past 12 Hours) Vital Signs Temp Pulse Resp BP Pulse Ox 08/19/21 08:23 36.9 C 08/19/21 08:00 73 24 93 08/19/21 07:46 75 28 H 120/95 93 08/19/21 07:32 79 20 143/74 H 95 08/19/21 07:15 100/61 95 08/19/21 07:00 103/62 93 08/19/21 06:00 72 18 126/81 94 08/19/21 05:00 71 20 93/53 L 93 08/19/21 04:03 36.8 C 08/19/21 04:00 71 20 95/57 L 95 08/19/21 03:30 61 19 81/51 L 93 08/19/21 03:00 74 19 96/52 L 94 08/19/21 02:45 73 19 92/52 L 94 08/19/21 02:30 78 21 94/59 L 94 08/19/21 02:00 76 19 112/70 94 08/19/21 01:30 83 19 106/66 93 08/19/21 01:16 84 16 90/60 L 90 08/19/21 01:00 79 17 92/53 L 90 08/19/21 00:14 36.8 C 08/19/21 00:00 86 19 97/57 L 92 06/29/22 23:45 87 16 96/59 L 93 08/18/21 23:15 83 18 104/78 95 08/18/21 23:00 87 18 104/78 96 08/18/21 22:31 101 H 25 H 121/88 95 08/18/21 22:15 92 H 26 H 120/74 95 08/18/21 22:00 96 H 19 119/84 95 08/18/21 21:45 98 H 21 126/83 94 08/18/21 21:30 96 H 14 115/68 96 Lab & Micro Results (Past 24 Hours) No Data to Display No Data to Display No Data to Display Diagnostic Findings (Past 24 Hours) Chest X-Ray 08/18/21 11:28 SINGLE VIEW CHEST CLINICAL HISTORY: Atypical chest pain. FINDINGS: An AP, portable, upright chest radiograph is compared to study dated 05/03/2021. The heart is mildly enlarged. The pulmonary vasculature is noncongested. Chronic interstitial thickening is similar to previous. The lungs and pleural spaces are clear. No pneumothorax is seen. The skeletal structures are osteopenic. The bony thorax is grossly intact. IMPRESSION: No active disease in the chest. ACT 112: Negative or not required by law. Electronically signed by: German Fung M.D. 08/18/2021 11:50 AM Chest CTA 08/18/21 12:12 CT ANGIOGRAM OF THE CHEST CLINICAL HISTORY: Atypical chest pain. COMPARISON STUDY: Chest x-ray dated 08/18/2021. Abdominal CT dated 03/15/2021. TECHNIQUE: Following the IV administration of 120 cc of Optiray 320, CT angiogram of the chest was performed from the upper abdomen to the thoracic inlet utilizing the pulmonary embolus protocol. Images are reviewed in the axial, sagittal, and coronal planes. 3-D MIPS images are created and assessed. IV contrast was administered without complication. A dose lowering technique was utilized adhering to the principles of ALARA. CT DOSE: 273.02 mGy.cm FINDINGS: Thyroid: Imaged portions of the thyroid gland are normal in size and attenuation. Thoracic aorta: There is mild atherosclerotic calcification of the thoracic aorta. There is mild aneurysmal dilatation of the ascending thoracic aorta which measures up to 4.1 cm. The remainder of the thoracic aorta is normal in caliber, and the arch demonstrates bovine variant anatomy. No dissection is seen. Pulmonary vasculature: The pulmonary trunk is normal in caliber. There are no filling defects identified in main, lobar, or segmental pulmonary branches to suggest pulmonary embolus. Heart: The heart is mildly enlarged and without pericardial effusion. There are coronary artery calcifications. Lungs and pleural spaces: There is no airspace consolidation or pleural effusion. Scarring/atelectasis is seen at the lung bases. There are scattered calcified granulomas. The trachea and central airways are clear. Diffuse peribronchial thickening is observed. Mediastinum: There is no mediastinal lymphadenopathy. Wendy: Clear. Axillae: There is no axillary lymphadenopathy. Upper abdomen: Pneumobilia is again seen in the left lobe of the liver. Partially visualized upper abdominal viscera is otherwise within normal limits. Skeletal structures: The skeletal structures are osteopenic. Mild degenerative change and hyperkyphosis is seen in the thoracic spine. No lytic or blastic bony lesions are seen. IMPRESSION: 1. There is no evidence of pulmonary embolus in the main, lobar, or segmental pulmonary arteries. 2. There is no airspace consolidation or pleural effusion. 3. Diffuse peribronchial thickening suggests bronchitis/reactive airway disease. Clinical correlation will be required. 4. Mild cardiomegaly. 5. There is mild aneurysmal dilatation of the ascending thoracic aorta which measures up to 4.1 cm in diameter. ACT 112: Negative or not required by law. Electronically signed by: German Fung M.D. 08/18/2021 12:40 PM I & O Totals 24 Hours 08/18/21 08/19/21 08/20/21 06:59 06:59 06:59 Intake Total 903.050 / 903.050 Balance 903.050 / 903.050 Cumulative 08/18/21 11:07 thru 08/19/21 06:57 Intake Total 903.050 Balance 903.050 RT Ventilator Mngmt (Last Documented) Ventilator Ordered Settings Respiratory Rate 24 08/19/21 08:00 Ventilator - PT Measurements Respiratory Rate 24 Coding Level of Care Code 49257 Subseq Obs Care Lvl 1 Diagnoses Admitted to intensive care unit Z78.9 Unstable angina I20.0 Chest pain R07.9 Chest pain type: unspecified NSTEMI (non-ST elevated myocardial infarction) I21.4 Hypertension I10 Hypertension type: unspecified Acute non-ST elevation myocardial infarction (NSTEMI) I21.4 Aortic aneurysm I71.2 Aortic location: thoracic aorta Presence of rupture: without rupture (1) Aortic aneurysm Aortic location: thoracic aorta Presence of rupture: without rupture Qualified Code(s): I71.2 - Thoracic aortic aneurysm, without rupture (2) Chest pain Chest pain type: unspecified Qualified Code(s): R07.9 - Chest pain, unspecified (3) Hypertension Hypertension type: unspecified Qualified Code(s): I10 - Essential (primary) hypertension
--- NOTE | 2021-08-19 10:03 | Cardiology Consultation ---
Date of Consultation August 19, 2021 Assessment & Plan (1) Acute non-ST elevation myocardial infarction (NSTEMI): -classic description of crescendo angina pectoris. -high sensitivity troponin peaked at 9. -agree with intravenous heparin. -clearly needs an urgent cardiac catheterization. (2) CAD (coronary artery disease): -history of non ST elevation [place] in December 2003. -had a stent placed within the LAD at that time. -continue medical management. -not on aspirin due to a prior history of GI bleeding. (3) Hypertension: -adequate control on current regimen. (4) Hyperlipidemia: -consider increasing the dose of atorvastatin. History of Present Illness Attending Physician: Jorge Lyons MD History of Present Illness Mrs. Townsend is a 66-year-old female admitted yesterday with crescendo angina pectoris. This consultation was ordered to assistance cardiac management. Of note, patient is well known to me from the outpatient setting. The patient was in her usual state of health until approximately 2 weeks prior to presentation. She began to note substernal chest discomfort with physical activity. Her discomfort typically resolved with rest. She did not require sublingual nitroglycerin. However, over last 2-3 days, her discomfort has persisted for 30-60 minutes. She also had associated nausea and fatigue. She did experience an episode while at rest last evening. The patient carries a history of a non ST elevation [place] which occurred back in December 2003. She had a stent placed within the LAD. Currently, patient is resting comfortably in bed and without complaints. Past medical and surgical history 1. Coronary artery disease-see above 2. LAD stent-December 2003 3. Hypertension 4. Hypercholesterolemia 5. Mild aortic insufficiency 6. Hyperglycemia 7. GERD 8. Irritable bowel syndrome 9. Nephrolithiasis 10. Right TKR-May 2021 11. Hysterectomy 12. Tonsillectomy and adenoidectomy 13. 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 Allergies Allergy/AdvReac Type Severity Reaction Status Date / Time morphine AdvReac Intermediate N/V; Verified 08/18/21 13:10 difficult to lift head Home Medications Medication Instructions Recorded Confirmed Type lifitegrast 5 % eye drops in a 1 drp OPHTHALMIC (EYE) BID 01/25/18 08/18/21 History dropperette (Xiidra) mecobalamin (vitamin B12) 1,000 1,000 mcg PO 3XWK tab 02/08/19 08/18/21 History mcg disintegrating tablet,sublingual atorvastatin 10 mg tablet 10 mg PO HS #90 tab 09/28/20 08/18/21 Rx cholecalciferol (vitamin D3) 25 25 mcg PO 3XWK 09/28/20 08/18/21 History mcg (1,000 unit) capsule pantoprazole 40 mg tablet,delayed 40 mg PO QAM #90 tab 10/12/20 08/18/21 Rx release metoprolol succinate 25 mg 12.5 mg PO HS #45 tab 10/19/20 08/18/21 Rx tablet,extended release 24 hr azelastine 205.5 mcg (0.15 %) 2 spray INTRANASAL HS 04/27/21 08/18/21 History nasal spray cholestyramine-aspartame 4 gram 4 g PO HS 04/27/21 08/18/21 History oral powder (Cholestyramine Light) clopidogrel 75 mg tablet 75 mg PO QAM 04/27/21 08/18/21 History dicyclomine 10 mg capsule 10 mg PO DAILY PRN 04/27/21 08/18/21 History ondansetron HCl 4 mg tablet 4 mg PO Q6 PRN #30 tab 05/19/21 08/18/21 Rx ferrous sulfate 325 mg (65 mg 325 mg PO HS 08/18/21 08/18/21 History iron) tablet (iron) Patient History Medical History CAD (coronary artery disease) S/p LAD stent Dec 2003- Follows with Dr Gregorio Not on ASA due to GI issues/ulcers- on Plavix per cardio Diverticulosis Dry eye GERD (gastroesophageal reflux disease) Well controlled and stable Hyperlipidemia Per cardio records Hypertension Per cardio records- pt denies IBS (irritable bowel syndrome) Post cholecystectomy syndrome Low iron On iron supplement Giron neuroma Right side Myocardial Infarction 2003 Pre-diabetes Stable Renal calculi HX - no recent issues Vestibular neuronitis of right ear Stable - occ balance issues Surgical History History of adenoidectomy History of cardiac cath 2004 - [place] - [facility] - 1 STENT - FOLLOWS W/ DR. GREGORIO History of colonoscopy History of ERCP History of heart artery stent X 1 (2003) History of hysterectomy History of removal of cyst Rt thumb - 03/06/2019 [facility] [place] History of tonsillectomy Hx laparoscopic cholecystectomy Laparoscopic Cholecystectomy Dr. Patterson 04/25/2020 Family History Family/Other Myocardial infarction Grandmother (Maternal) Heart disease Cancer Mother Heart disease Grandfather (Maternal) Gastric cancer Other Family history of diabetes mellitus Denies family history of Ovarian cancer Prostate cancer Breast cancer Colorectal cancer Social History Smoking Status: Never smoker Second Hand Exposure: Yes; Hx Alcohol Use: Yes Alcohol type: wine Hx Substance Use: No Preferred Language: Arabic Communication Ability: Effective Visual Impairment: No Limitations Hearing Ability: Normal Card Cutter Helper Required: No Beliefs That Will Affect Care: None marital status: Current Living Situation: Spouse current occupational status: retired How many Children do You have: 2 Feels Safe at Home: Yes Safety Concerns: Feels Safe At This Time Childhood Exposure to Second-Hand Smoke: Yes Dental Care, Regularly: Yes Physical Activity Frequency: 5-6 Times per Week Seatbelt Use: always Sunscreen Use: Yes Assistive Devices: Glasses Physical Exam Physical Exam: In general this is a well-developed well-nourished white female in no acute distress. HEENT exam is negative.Neck reveals normal carotid upstrokes without bruits. No jugular venous distention. There is no thyromegaly. Cardiovascular exam reveals a regular rhythm with a normal S1 and S2. No murmurs, S3, or S4 are noted. Lungs are clear without rales, rhonchi, or wheezes. Abdomen is soft without bruits. Extremities reveal intact radial artery and posterior tibial pulses bilaterally. There is no peripheral edema. Results & Data ([facility] [place]) Vital Signs (Past 12 Hours) Vital Signs Temp Pulse Resp BP Pulse Ox 08/19/21 08:23 36.9 C 08/19/21 08:00 73 24 93 08/19/21 07:46 75 28 H 120/95 93 08/19/21 07:32 79 20 143/74 H 95 08/19/21 07:15 100/61 95 08/19/21 07:00 103/62 93 08/19/21 06:00 72 18 126/81 94 08/19/21 05:00 71 20 93/53 L 93 08/19/21 04:03 36.8 C 08/19/21 04:00 71 20 95/57 L 95 08/19/21 03:30 61 19 81/51 L 93 08/19/21 03:00 74 19 96/52 L 94 08/19/21 02:45 73 19 92/52 L 94 08/19/21 02:30 78 21 94/59 L 94 08/19/21 02:00 76 19 112/70 94 08/19/21 01:30 83 19 106/66 93 08/19/21 01:16 84 16 90/60 L 90 08/19/21 01:00 79 17 92/53 L 90 08/19/21 00:14 36.8 C 08/19/21 00:00 86 19 97/57 L 92 08/18/21 23:45 87 16 96/59 L 93 08/18/21 23:15 83 18 104/78 95 08/18/21 23:00 87 18 104/78 96 08/18/21 22:31 101 H 25 H 121/88 95 08/18/21 22:15 92 H 26 H 120/74 95 08/18/21 22:00 96 H 19 119/84 95 Laboratory Results CBC notes hemoglobin 11.5, hematocrit 36.1, white count 6.03, a platelet count [id number]. Electrolytes note a sodium of 139, potassium 3.9, chloride 107, bicarb 26, BUN 13, creatinine 0.65, and glucose of 107. 6.6 with follow-up values of one hundred eighty-seven, 2119, 1863, and 956. Diagnostic Findings EKG notes sinus rhythm with frequent PACs. There is poor R-wave progression across the anterior precordium. Echocardiogram notes normal left ventricular systolic function with ejection fraction of 65-70%. There was an area of hypokinesis involving the inferior base. There is mild aortic insufficiency. Chest x-ray notes borderline cardiomegaly but otherwise normal. PG Care Time/CCT Total # of Minutes Spent Total Time Spent with Patient: Total time spent is greater than 50% in coordination of care (as documented) at patient's floor/unit and/or counseling patient: Coding Level of Care Code INT OBSERVATION CARE 70M LVL 3 Diagnoses Acute non-ST elevation myocardial infarction (NSTEMI) I21.4 CAD (coronary artery disease) I25.10 Hypertension I10 Hypertension type: unspecified Hyperlipidemia E78.5 (1) Hypertension Hypertension type: unspecified Qualified Code(s): I10 - Essential (primary) hypertension
[2021-08-19] MEDS ORDERED: LIDOCAINE 1% LOCAL 20 ML VIAL ONE (10:24)
--- NOTE | 2021-08-19 10:27 | Post Anesthesia Assessment ---
Date of Service August 19, 2021 Post Sedation Assessment Vital Signs Temp Pulse Pulse Resp BP BP Pulse Ox 08/19/21 10:15 70 18 108/71 96 08/19/21 08:23 98.4 F 08/19/21 08:00 73 24 93 08/19/21 07:46 75 28 H 120/95 93 08/19/21 07:32 79 20 143/74 H 95 08/19/21 07:15 100/61 95 08/19/21 07:00 103/62 93 08/19/21 06:00 72 18 126/81 94 08/19/21 05:00 71 20 93/53 L 93 08/19/21 04:03 98.2 F 08/19/21 04:00 71 20 95/57 L 95 08/19/21 03:30 61 19 81/51 L 93 08/19/21 03:00 74 19 96/52 L 94 08/19/21 02:45 73 19 92/52 L 94 08/19/21 02:30 78 21 94/59 L 94 08/19/21 02:00 76 19 112/70 94 08/19/21 01:30 83 19 106/66 93 08/19/21 01:16 84 16 90/60 L 90 08/19/21 01:00 79 17 92/53 L 90 08/19/21 00:14 98.2 F 08/19/21 00:00 86 19 97/57 L 92 08/18/21 23:45 87 16 96/59 L 93 08/18/21 23:15 83 18 104/78 95 08/18/21 23:00 87 18 104/78 96 08/18/21 22:31 101 H 25 H 121/88 95 08/18/21 22:15 92 H 26 H 120/74 95 08/18/21 22:00 96 H 19 119/84 95 08/18/21 21:45 98 H 21 126/83 94 08/18/21 21:30 96 H 14 115/68 96 08/18/21 21:16 93 H 24 124/66 96 08/18/21 21:00 103 H 15 113/79 93 08/18/21 20:46 98.1 F 08/18/21 20:45 91 H 23 125/73 94 08/18/21 20:32 95 H 23 132/76 94 08/18/21 20:15 92 H 151/82 H 08/18/21 19:35 97.9 F 90 16 145/97 H 96 08/18/21 17:13 97.9 F 89 18 153/89 H 98 08/18/21 16:39 98.2 F 16 98 08/18/21 16:00 89 21 158/93 H 08/18/21 15:55 73 18 147/72 H 98 08/18/21 15:30 97 H 22 08/18/21 15:00 96 H 24 151/95 H 08/18/21 14:42 20 163/101 H 08/18/21 14:30 89 19 08/18/21 14:00 22 08/18/21 13:30 79 18 08/18/21 13:00 83 14 08/18/21 12:14 87 18 148/77 H 08/18/21 12:00 91 H 17 119/88 08/18/21 11:56 94 H 20 149/84 H 08/18/21 11:49 102 H 22 174/90 H 08/18/21 11:30 93 H 20 98 08/18/21 11:28 91 H 19 98 08/18/21 11:09 101 H 20 184/108 H 98 Recovery Score Activity: Moves 4 extremities Respiration: Deep Breath/Cough Circulation: +/-20% PreAnes Value Consciousness: Fully Awake Oxygen Saturation: O2 needed for >90% Discharge Sedation Level of Care: Fast Track Phase II Post Sedation Plan On clinical assessment, the patient appears to have tolerated the sedation without complications. Patient is recovering as anticipated. Patient will continue to be monitored by nursing and may be discharged when sedation discharge criteria are met per below protocol. Upon Completions of procedure up to 15 minutes continue every 5 minute vital signs and the P.A.R. score; then discharge to a Phase I or Fast Track to Phase II per the following guidelines: * Discharge Patient to appropriate Phase II area if PAR is 8 or greater or return to pre- procedure baseline. The post - procedure orders will be as directed. * If PAR score is less than 8 or not return to pre-procedure baseline then patient will follow Phase I monitoring till PAR is reached for Phase II. The Phase I may be done in procedure room or may call to secure a Phase I area. * If naloxone or flumazenil are used for reversal, hold in Phase I for continued monitoring from when last reversal dose was given for a minimum of 60 minutes or longer pending the nurse and/or physician discretion of patient condition before discharge to Phase II. Please call the Sedation Physician to re-evaluate and complete post-note for discharge to Phase II area. Do NOT discharge from procedure sedation or Phase 1 until post- sedation evaluation note is complete by procedure /sedation MD Sedation Discharge Instructions to be given to the patient at discharge to home.
--- NOTE | 2021-08-19 10:29 | Cardiac Catheterization ---
[facility] Data: Provider Network Analyst Cardiac Status Clinical evaluation leading to the procedure CAD Presenation: Non STEMI Anginal Classification: CCS IV Diagnostic Physicians Name: Jake Olivia MD Closure Device Recommendations: PCI without planned CABG Cardiac Cath Procedure Full Procedure Date August 19, 2021 Pre-Procedure Diagnosis Pre-Procedure Diagnosis: Non STEMI AUC Score AUC Score: 8 Post-Procedure Diagnosis Post-Procedure Diagnosis: Mild CAD and Normal Intracardiac Pressures Procedure(s) Performed Procedure(s) Performed: Coronary Angiography, Left Heart Cath and IVUS Doctor Of Naprapathic Medicine Jake Olivia MD Alarm Installation Technician(s) [place] Estimated Blood Loss Estimated Blood Loss: 10 Medication(s) Medication(s): Fentanyl, Heparin, Lidocaine 1%, Nicardipine, Nitroglycerin and Versed Summary of Findings Indication: NSTEMI Access: 6 Fr right radial artery Catheters: [place] Findings: LM -normal caliber, no significant disease LAD -medium caliber, 20% proximal stenosis, mid segment stents widely patent with questionable hazy area in mid aspect of stent. Distal vessel small without significant disease and tapers to apex. Small to medium first and second diagonal without significant disease. Circumflex -large caliber, no significant disease, gives off 2 medium caliber OM's without disease. RCA -dominant, large caliber, no significant disease. Large RPDA without disease. Diffuse disease in small PLB's LVEDP -8 IVUS of LAD Left main cannulated with EBU 3.5 guide BMW wire placed into distal LAD Dwight IVUS catheter passed into distal LAD IVUS pullback revealed widely patent stents without any significant in-stent restenosis. No significant proximal LAD or left main disease. Catheter and wire removed. Post procedure angiography revealed no complications. Arterial Closure: TR band Summary: 1. Minimal nonobstructive coronary artery disease -Widely patent mid LAD stents (no significant restenosis by IVUS). 2. Normal intracardiac filling pressure Recommendations: No high risk findings on catheterization. Suspect troponin elevation due to possible transient small branch vessel occlusion versus vasospasm or myocarditis. Antiplatelet therapy, antianginals per Dr. Gregorio Hemodynamics Rest Ao:: 114/73/91 Final Ao: 135/75/101 LV: 127/8 Recommendations Recommendations: PCI without planned CABG Specimens Specimens: None Radiation Exposure (mGy) 512 Contrast (mls) 40 Anesthesia moderate Procedural Complication(s) None Disposition Provider Network Analyst Holding/Recovery I attest to the content of the Intraoperative Record and any orders documented therein. Any exceptions are noted below. [facility] Card Cath Procedure Codes Cardiac Catheterization Procedure 1: Cardiovascular Cath Procedures: 02598 Coronaries and LHC (+/-LV) Therapeutic Services & Ancillary Proc Procedure 1: Cardiovascular Tx and Anc Procedures: 86130 IV Ultrasound (Coronary or Graft) Moderate Sedation Procedure 1: Sedation/Anesthesia: 00923 Mod Sedation by the same physician;Init15 Min Child Age 5 & Up PG Care Time/CCT Total # of Minutes Spent Total Time Spent with Patient: Total time spent is greater than 50% in coordination of care (as documented) at patient's floor/unit and/or counseling patient:
[2021-08-19] MEDS ORDERED: RANOLAZINE 500 MG ER TAB PO ONE (13:30)
--- NOTE | 2021-08-19 13:32 | Discharge Summary ---
Date of Service August 19, 2021 Admission HPI Per Admitting Provider Shona Gilliam is a 66 year old female who presents to the ER with chest pain. Substernal, severity 7-8/10 at worse, currently 0/10, radiates to left arm, associated nausea. Today's episodes happened around 10:30am at it's worst, occurred while on stationary bike, lasted until she took nitroglycerin in the ER at 11:40. Took aspirin 81mg PO today around 10:45 because of her chest pain. Took her other medications this morning with pantoprazole and clopidogrel. Similar other episode yesterday, lasted for 30 minutes, getting ready to go out but while sitting. Thinks drinking water helped. Specifically can remember other episodes last - put this down to extra strength Tylenol. No prior history of DVT/PE. She has a notable history of NSTEMI with LAD stent placed in December 2003. LDL at goal 49 mg/dL on atorvastatin 10mg PO daily. In the ER EKG showed no ischemic changes, high sensitivity troponin I increased from 6.6 -> 187.3. She given aspirin 243mg PO, nitroglycerin 0.4mg SL x2. Low dose heparin IV with bolus has been ordered. She was referred to medicine for admission and ongoing management of NSTEMI. Principal Diagnosis n stemi non occlusive CAD Discharge Exam The patient appeared stable Vital signs as documented. Lungs are clear to auscultation and appear unlabored Cardiac exam, Rhythm is regular.. No murmurs, rubs or gallops. Abdominal exam reveals normal bowel sounds, soft non tender, no masses Right wrist has good hemostasis distal sensation and strength Neurologic exam is alert and oriented, no focal loss of strength or sensation Skin is without bruises or rashes Psychologically is without concerns for anxiety or depression. Discharge Data Allergies Allergy/AdvReac Type Severity Reaction Status Date / Time morphine AdvReac Intermediate N/V; Verified 08/18/21 13:10 difficult to lift head Consultations 08/18/21 13:38 ED Decision to Admit Stat 08/18/21 16:39 Consult Cardiology Routine 08/18/21 20:43 Consult Sports Specialist Routine Procedures Performed Operation Date: 08/19/21 09:30 Actual Procedures s Cineradiography w/Routine Exam - Jey Olivia MD p Cath, Left with Cors and Vent - Jey Olivia MD p IVUS Coronary Single Vessel - Jey Olivia MD Ordered Studies 08/18/21 12:12 CT angio chest PE protocol Stat 08/19/21 09:36 CL Cath Imgs for PACS use only Routine 08/19/21 11:53 CL IVUS Coronary Single Vessel Routine Hospital Course (1) NSTEMI (non-ST elevated myocardial infarction): Patient had a left heart catheterization with nonocclusive disease and a patent previous stent. Discussion is whether this was a very small branch that cannot be seen versus vasospasm was entertained by cardiology with the decision to begin Ranexa therapy 500 twice daily and addition to her usual risk reduction medications Patient will continue on aspirin Plavix atorvastatin and metoprolol. Remain on aspirin until follow-up with cardiology clinic. Given dose of Ranexa before going home and then will continue above as listed twice daily (2) CAD (coronary artery disease): Precardiac catheterization previous LAD stent is stable and patent there is no significant reduction in cardiac function on catheterization (3) Hypertension: (4) Vitamin B12 deficiency: Discussed B12 injections with outpatient provider Total Time Total Time Spent Total Time Spent (In Minutes): Discharge 30 including coordination of care with cardiology Discharge Plan Discharge Items Patient Disposition: Home - Self-Care Reason For Visit: NSTEMI Discharge Diagnosis: non ST elevated Myocardial infarction by blood levels no occlusive heart cath, Dr Gregorio recommends medical management Activity: Resume your previous activity Non-emergency contact: 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 no significant blockages, your stent is open and no reduction in heart function. Vanessa Giordano suggest that you start a medication to help reduce your symptoms, this was started here before you went home, you may take it twice a day starting 08/20/21. Continue baby aspirin once a day in addition to Plavix until seen by cardiology and follow-up. Please see Dr Gregorio in follow up Your vitamin B12 level is low normal , continue your supplements and please discuss this with your family doctor to see if you may want to have injections Pending Studies at Discharge: No Stand-Alone Forms: My [facility], Smoking Cessation Medications and DC Order Prescriptions: New ranolazine [Ranexa] 500 mg tablet extended release 12 hr 500 mg PO BID Qty: 60 RF: 0 nitroglycerin 0.4 mg tablet, sublingual 0.4 mg sublingual Q5M Qty: 1 RF: 5 aspirin 81 mg tablet,chewable 81 mg PO DAILY Qty: 30 RF: 0 Continued pantoprazole 40 mg tablet,delayed release (DR/EC) 40 mg PO QAM Qty: 90 RF: 3 metoprolol succinate 25 mg tablet extended release 24 hr 12.5 mg PO HS Qty: 45 RF: 3 ondansetron HCl 4 mg tablet 4 mg PO Q6 PRN (Reason: nausea) Qty: 30 RF: 1 mecobalamin (vitamin B12) 1,000 mcg tablet,disintegrating 1,000 mcg PO 3XWK RF: 0 cholecalciferol (vitamin D3) 25 mcg (1,000 unit) capsule 25 mcg PO 3XWK RF: 0 atorvastatin 10 mg tablet 10 mg PO HS Qty: 90 RF: 3 Xiidra 5 % Dropperette 1 drp OPHTHALMIC (EYE) BID RF: 0 Cholestyramine Light 4 gram Powder 4 g PO HS RF: 0 clopidogrel 75 mg tablet 75 mg PO QAM RF: 0 azelastine 205.5 mcg (0.15 %) spray,non-aerosol 2 spray intranasal HS RF: 0 dicyclomine 10 mg Capsule 10 mg PO DAILY PRN (Reason: abdominal cramping) RF: 0 ferrous sulfate [iron] 325 mg (65 mg iron) tablet 325 mg PO HS RF: 0 Discharge Orders: Discharge Order (Routine); Ordered 08/19/21 Ordered By: Jorge Lyons Admission Data Admit Date/Time: 08/18/21 14:59 Attending Provider: Jorge Lyons Admit Provider: Derian Matute Primary Care Provider: Jono Faria Other Providers: Derian Matute ; Luke Ricks ; Myron Harding Coding Level of Care Code D/C DAY MANAGEMENT >30 MINS Diagnoses NSTEMI (non-ST elevated myocardial infarction) I21.4 CAD (coronary artery disease) I25.10 Hypertension I10 Vitamin B12 deficiency E53.8
== END 2021-08-19 16:04 | disposition home or self-care (01) | DRG 282 ==
LOC: ED 11:07 → SUATTDRO 14:59 → 2S 14:59 → 1E 20:35

== ENCOUNTER 2022-04-28 08:20 | Observation (INO) ==
[2022-04-28] MEDS ORDERED: NITROGLYCERIN SL 0.4 MG/TAB TAB SL STA ×2 (08:52→09:50)
[2022-04-28] MEDS ORDERED: NITROGLYCERIN 2% OINTMENT 30GM TUBE EXT STA (08:52)
--- NOTE | 2022-04-28 08:59 | Emergency Department Note ---
Impression & Plan Chest pain, History of coronary artery disease ED Provider Note INFORMANT: Patient ED PROVIDER(S): Ghassan Mazariegos MD CHIEF COMPLAINT: Chest pain and right arm numbness PLAN: Disposition: Admitted Condition: Good Outpatient prescription management: none Referral: None patient presented complaining of chest discomfort and right arm pain/numbness. MEDICAL DECISION MAKING: She noted this was her anginal equivalent. She had prior relief with nitroglycerin. Patient was hypertensive. ECG did not show any ST elevation or significant ST depression. The patient had blood work obtained. Chest x-ray ordered. She was given Nitropaste and sublingual nitroglycerin. She had already taken aspirin today. Patient had increased pain in the ER and was given additional sublingual nitroglycerin with relief of her symptoms. Her blood pressure was also elevated at the time of the second episode of chest pain. The second nitroglycerin combined with the Nitropaste and a dose of IV metoprolol did relieve her symptoms and her blood pressure was improved. Repeat ECG at that time did not reveal any changes from the first. Given the patient's history, description of this anginal equivalent, and moderate risk heart score the patient needs further evaluation and management in the hospital. [facility] Patient was evaluated in the ER and admitted for further management. Discussed with manager exchange. After review of the information above and other requires further management in the hospital included data, I feel the patient disposition. Triage Nursing notes reviewed and agree them. Vital Signs: reviewed and remarkable for hypertension Prior /Outside records reviewed: Prior catheterization results reviewed from 08/11. Nonocclusive coronary disease noted. Differential diagnosis: Cardiac ischemia, aortic dissection, pulmonary embolism, pneumothorax, pneumonia, pericarditis, myocarditis, esophageal rupture, GERD, cholecystitis, pancreatitis, musculoskeletal, as well as other pathologies. Diagnostics, as interpreted by me: ECG: Twelve-lead ECG reveals a normal sinus rhythm at 93 bpm. Low voltage QRS. Poor R wave progression anteriorly. No ST elevation or ST depression. No PVCs or PACs. Repeat twelve-lead ECG revealed a normal sinus rhythm without any evidence of ST elevation or depression. No change from the first. Cardiac Monitoring: Cardiac monitoring ordered by me: The patient was placed on continuous cardiac monitoring and observed. It revealed a normal sinus rhythm at 82 beats per minute with occasional PVC but no evidence of dysrhythmia. Medical decision rules: Patient is moderate risk by HEART score Imaging studies: Chest x-ray. Findings: A chest x-ray was performed and revealed no pneumothorax, effusion, infiltrate, pulmonary edema, free air under the diaphragm, or wide mediastinum. Impression: No acute disease. HPI: The patient is a 66 year old female who presents to the Emergency Room with complaints of chest pain. This started two days ago and is fluctuating. The patient also notes the following associated symptoms, right shoulder aching and right arm pain and numbness. Patient also noted Monday, 2 days ago that she had nausea and was feeling sweaty. This feels just like her NSTEMI symptoms from last year. Her pain started two days ago and resolved with rest, aspirin and nitro. Symptoms returned this mornin. The patient has taken more nitro and aspirin today for relieving factors. Current pain is rated as 8/10. Pat Pt also notes her blood pressure was significantly elevated compared to normal. She just drove back from [place] over 4-day.. Patient also notes that she had to curtail exercise last week in [place] due to to feeling short of breath. Denies LOC, headache, fevers, chills, visual changes, neck pain, breathing difficulties, vomiting, abdominal pain, back pain, melena, hematochezia, urinary symptoms, weakness, lymphadenopathy, rash, or other complaints. PAST MEDICAL HISTORY: See Below, CAD PAST SURGICAL HISTORY: See Below, stented coronary artery SOCIAL HISTORY: See Below, . Non-smoker HOME MEDICATIONS: See Below ALLERGIES: See Below VITALS: See Below PHYSICAL EXAMINATION: GENERAL: Awake, alert, well-appearing, in no distress HENT: Normocephalic, atraumatic. Oropharynx unremarkable. EYES: Normal conjunctiva. Sclera non-icteric. NECK: Inspection normal. Non-tender. Supple. No nuchal rigidity. FROM. No masses. RESPIRATORY: Clear to auscultation. No wheezes. No rales. Normal respiratory effort. CARDIAC: Normal rate. Normal rhythm. No murmurs. No rubs. Extremities warm and well perfused. Pulses equal. No JVD. GI: Soft, non-distended. No tenderness to palpation. No rebound or guarding. No masses. RECTAL: Deferred. MUSCULOSKELETAL: Atraumatic. Chest examination reveals no tenderness. The back is symmetrical on inspection without obvious abnormality. There is no CVA tenderness to palpation. No joint edema. LOWER EXTREMITIES: Calves are equal size bilaterally and non-tender. No edema. No discoloration. NEURO: Normal sensorium. No sensory or motor deficits noted. SKIN: No rash or jaundice noted. Past Med/Surg History Medical History (Updated 04/28/22 @ 15:52 by Luke Ricks MD) Abnormal finding on mammography Abnormal liver function test Acute non-ST elevation myocardial infarction (NSTEMI) Allergic rhinitis Asymmetric SNHL (sensorineural hearing loss) CAD (coronary artery disease) S/p LAD stent Dec 2003- Follows with Dr Gregorio Not on ASA due to GI issues/ulcers- on Plavix per cardio Colon cancer screening Diverticulosis Dry eye Encounter for pre-operative examination GERD (gastroesophageal reflux disease) Well controlled and stable H/O seasonal allergies History of placement of stent in LAD coronary artery (2003) Hyperlipidemia Per cardio records Hypertension Per cardio records- pt denies Hypotension IBS (irritable bowel syndrome) Post cholecystectomy syndrome Labyrinthitis of right ear Leg length discrepancy Low iron On iron supplement Giron neuroma Right side Myocardial Infarction 2003 NSTEMI (non-ST elevated myocardial infarction) Piriformis syndrome of right side Poor balance Postoperative anemia due to acute blood loss Pre-diabetes Stable Renal calculi HX - no recent issues UTI (urinary tract infection) Vestibular neuronitis of right ear Stable - occ balance issues Surgical History History of adenoidectomy History of cardiac cath 2004 - [facility] - 1 STENT - FOLLOWS W/ DR. GREGORIO History of colonoscopy History of ERCP History of heart artery stent X 1 (2003) History of hysterectomy History of removal of cyst Rt thumb [place] 03[place]06/[place] [facility] [place] of tonsillectomy Hx laparoscopic cholecystectomy Laparoscopic Cholecystectomy Dr. Patterson 04/25/2020 Family History Family/Other Myocardial infarction Grandmother (Maternal) Heart disease Cancer Mother Heart disease Grandfather (Maternal) Gastric cancer Other Family history of diabetes mellitus Denies family history of Ovarian cancer Prostate cancer Breast cancer Colorectal cancer Social History Smoking Status: Never smoker Second Hand Exposure: No; Do You Dip or Chew Tobacco: No; Tobacco Cessation Education Requested by Patient: No Hx Alcohol Use: No Hx Substance Use: No Preferred Language: Frisian Communication Ability: Effective Visual Impairment: No Limitations Hearing Ability: Normal 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 Beliefs That Will Affect Care: None marital status: Current Living Situation: Spouse current occupational status: retired How many Children do You have: 2 Other Information That Helps Us Care for You: No Feels Safe at Home: Yes Safety Concerns: Feels Safe At This Time Childhood Exposure to Second-Hand Smoke: Yes Dental Care, Regularly: Yes Physical Activity Frequency: Daily Seatbelt Use: always Sunscreen Use: Yes Assistive Devices: None Allergies Allergies Allergy/AdvReac Type Severity Reaction Status Date / Time morphine AdvReac Intermediate N/V; Verified 03/11/22 10:40 difficult to lift head Home Meds Home Medications Medication Instructions Recorded Confirmed lifitegrast 5 % eye drops in a 1 drp ophthalmic (eye) BID 01/25/18 04/28/22 dropperette (Xiidra) cholecalciferol (vitamin D3) 25 25 mcg PO 3XWK 09/28/20 04/28/22 mcg (1,000 unit) capsule cholestyramine-aspartame 4 gram 4 g PO HS 04/27/21 04/28/22 oral powder (Cholestyramine Light) dicyclomine 10 mg capsule 10 mg PO DAILY PRN abdominal 04/27/21 04/28/22 cramping ferrous sulfate 325 mg (65 mg 325 mg PO HS 08/18/21 04/28/22 iron) tablet (iron) mecobalamin (vitamin B12) 1,000 1,000 mcg PO DAILY 03/10/22 04/28/22 mcg disintegrating tablet,sublingual Previous Rx's Medication Instructions Recorded ondansetron HCl 4 mg tablet 4 mg PO Q6 PRN nausea #30 tabs 05/19/21 nitroglycerin 0.4 mg sublingual 0.4 mg sublingual Q5M #1 btl 08/19/21 tablet azelastine 205.5 mcg (0.15 %) 2 spray intranasal HS #90 mL 09/07/21 nasal spray levalbuterol tartrate 45 1 puff inhalation Q8H PRN 09/07/21 mcg/actuation aerosol inhaler shortness of breath or wheezing (Xopenex HFA) #15 grams clopidogrel 75 mg tablet 75 mg PO QAM #90 tabs 09/13/21 atorvastatin 10 mg tablet 10 mg PO HS #90 tabs 10/06/21 metoprolol succinate 25 mg 12.5 mg PO HS #45 tabs 10/06/21 tablet,extended release 24 hr pantoprazole 40 mg tablet,delayed 40 mg PO QAM #90 tabs 10/06/21 release amoxicillin 500 mg tablet 2,000 mg PO ONCE #4 tabs 11/04/21 ranolazine 500 mg tablet,extended 500 mg PO DAILY #90 tabs 12/09/21 release,12 hr (Ranexa) Results & Data (ED) Vital Signs Vital Signs - 24 hr 04/28/22 08:40 04/28/22 08:55 04/28/22 08:56 Pulse Rate 89 Pulse Rate [Apical] 82 Pulse Rate from SpO2 Sensor Respiratory Rate 16 Blood Pressure Blood Pressure Mean Pulse Oximetry 96 95 Oxygen Delivery Method Room Air Room Air 04/28/22 09:46 04/28/22 10:01 04/28/22 08:38 Pulse Rate 82 89 Pulse Rate [Apical] 84 Pulse Rate from SpO2 Sensor 89 Respiratory Rate 16 16 18 Blood Pressure 172/107 H Blood Pressure Mean 128 Pulse Oximetry 95 93 98 Oxygen Delivery Method Room Air Room Air Room Air 04/28/22 08:44 04/28/22 08:44 04/28/22 09:00 Pulse Rate 91 H 85 Pulse Rate [Apical] Pulse Rate from SpO2 Sensor 90 Respiratory Rate 26 H 15 Blood Pressure 161/99 H Blood Pressure Mean 119 Pulse Oximetry 99 Oxygen Delivery Method Room Air 04/28/22 09:30 04/28/22 09:43 04/28/22 09:43 Pulse Rate 76 90 Pulse Rate [Apical] Pulse Rate from SpO2 Sensor Respiratory Rate 15 20 Blood Pressure 172/107 H Blood Pressure Mean 128 Pulse Oximetry Oxygen Delivery Method 04/28/22 10:00 04/28/22 10:30 04/28/22 10:48 Pulse Rate 81 72 84 Pulse Rate [Apical] Pulse Rate from SpO2 Sensor 81 72 82 Respiratory Rate 18 18 18 Blood Pressure Blood Pressure Mean Pulse Oximetry 95 98 94 Oxygen Delivery Method Room Air Room Air Room Air 04/28/22 10:48 04/28/22 11:00 04/28/22 11:00 Pulse Rate 79 Pulse Rate [Apical] Pulse Rate from SpO2 Sensor 79 Respiratory Rate 15 Blood Pressure 157/91 H 157/100 H Blood Pressure Mean 113 119 Pulse Oximetry 99 Oxygen Delivery Method Room Air Laboratory Data 04/29/22 06:07 04/29/22 06:07 Lab Results 04/28/22 04/28/22 04/28/22 Range/Units 08:13 08:13 08:13 WBC 4.49 L (4.8-10.8) K/ul RBC 5.20 (4.20-5.40) M/uL Hgb 12.4 (12.0-16.0) g/dl Hct 38.0 (37.0-47.0) % MCV 73.1 L (80.0-100.0) fL MCH 23.8 L (25.0-34.0) pg MCHC 32.6 (32.0-36.0) g/dL RDW Std Deviation 33.7 L (36.4-46.3) fL RDW Coeff of Cyrus 13.0 (11.5-14.5) % Plt Count 177 (130-400) K/uL MPV 11.1 (9.4-12.4) fL Immature Gran % (Auto) 0.7 % Neut % (Auto) 58.3 % Lymph % (Auto) 27.4 % [place] % (Auto) 11.1 % Eos % (Auto) 1.6 % Baso % (Auto) 0.9 % Neut # (Auto) 2.62 (1.40-6.50) K/uL Lymph # (Auto) 1.23 (1.2-3.4) K/uL [place] # (Auto) 0.50 (0.11-0.59) K/uL Eos # (Auto) 0.07 (0-0.50) K/uL Baso # (Auto) 0.04 (0-0.2) K/uL Immature Gran # (Auto) 0.03 (0.01-0.20) K/uL D-Dimer 290 (0-500) ug/L FEU Sodium 140 (136-145) mmol/L Potassium TNP Chloride 106 (98-107) mmol/L Carbon Dioxide 25 (21-32) mmol/L Anion Gap 9 (3-11) BUN 16 (6-23) mg/dl Creatinine 0.69 (0.6-1.2) mg/dl Est Cr Clr Drug Dosing 70.9 ml/min Est GFR ( Amer) 103.7 ml/min Est GFR (Non-Af Amer) 89.4 ml/min BUN/Creatinine Ratio 23.2 H (10-20) Glucose 115 H (70-99(Fasting)) mg/dl Calcium 9.3 (8.5-10.1) mg/dl Total Bilirubin 1.7 H (0.2-1.0) mg/dl AST TNP ALT 20 (7-52) U/L Alkaline Phosphatase 71 (34-104) U/L Troponin I High Sens < 2.3 (0-14) pg/ml Total Protein 6.7 (6.0-8.3) gm/dl Albumin 4.6 (3.4-5.0) gm/dl Globulin 2.1 L (2.5-4.0) gm/dl Albumin/Globulin Ratio 2.2 H (0.9-2) Lipase 12 (11-82) U/L Administered Medications Acetaminophen (Acetaminophen 325 Mg Tab) 650 mg PO Q4H PRN PRN Reason: Pain or Fever Stop: 05/28/22 12:51 Last Admin: 04/28/22 19:53 Dose: 650 mg Documented By: HARRIET Atorvastatin Calcium (Atorvastatin 10 Mg Tab) 10 mg PO [facility] Stop: 05/28/22 20:59 Last Admin: 04/28/22 20:01 Dose: 10 mg Documented By: HARRIET Cholestyramine Resin (Cholestyramine Light 4 Gm Pkt) 4 gm PO [facility] Stop: 05/28/22 20:59 Last Admin: 04/28/22 20:02 Dose: 4 gm Documented By: HARRIET Ferrous Sulfate (Ferrous Sulfate 325 Mg Tab) 325 mg PO [facility] Stop: 05/28/22 20:59 Last Admin: 04/28/22 20:01 Dose: 325 mg Documented By: HARRIET Metoprolol Succinate (Metoprolol Succ 25mg Ext Rel Tab) 25 mg PO [facility] Stop: 05/28/22 20:59 Last Admin: 04/28/22 21:58 Dose: 25 mg Documented By: HARRIET Miscellaneous (Order Awaiting Action [Lifitegrast [Xiidra] 5 % Dropperette]) 1 each N/A QS [facility] Stop: 05/28/22 15:59 Last Admin: 04/28/22 23:51 Dose: Not Given Documented By: Admin: 04/28/22 17:21 Dose: Not Given Documented By: TATIANA Nitroglycerin (Nitroglycerin 2% Ointment 30gm Tube) 1 inch EXT Q6 [facility] Stop: 05/28/22 12:51 Last Admin: 04/29/22 06:00 Dose: Not Given Documented By: Admin: 04/29/22 00:52 Dose: Not Given Documented By: Admin: 04/28/22 18:43 Dose: 1 inch Documented By: Admin: 04/28/22 13:13 Dose: 1 inch Documented By: TATIANA Discontinued Medications Metoprolol Tartrate (Metoprolol Tartrate 1 Mg/Ml Vial) 2.5 mg IV NOW STA Stop: 04/28/22 09:51 Last Admin: 04/28/22 09:57 Dose: 2.5 mg Documented By: FLORES Nitroglycerin (Nitroglycerin 2% Ointment 30gm Tube) 0.5 inch EXT NOW STA Stop: 04/28/22 08:53 Last Admin: 04/28/22 09:02 Dose: 0.5 inch Documented By: J LUIS Nitroglycerin (Nitroglycerin Sl 0.4 Mg/Tab Tab) 0.4 mg SL NOW STA Stop: 04/28/22 08:53 Last Admin: 04/28/22 09:02 Dose: 0.4 mg Documented By: OL Nitroglycerin (Nitroglycerin Sl 0.4 Mg/Tab Tab) 0.4 mg SL NOW STA Stop: 04/28/22 09:51 Last Admin: 04/28/22 09:57 Dose: 0.4 mg Documented By: KV Discharge Plan Visit Data Chief Complaint: Chest Pain Stated Complaint: CHEST PAINS ED Provider: Ghassan Mazariegos Discharge Problem: Chest pain, History of coronary artery disease Patient Disposition: Admitted As Inpatient Discharge Instructions Interventions: ED Discharge Assessment Last Done: 04/28/22 12:30
--- NOTE | 2022-04-28 09:33 | XRay Report ---
SINGLE VIEW CHEST CLINICAL HISTORY: Atypical chest pain FINDINGS: An AP, portable, upright chest radiograph is compared to chest x-ray and chest CT dated 07/22. The heart is enlarged. The pulmonary vasculature is noncongested. The lungs and pleural space s are clear noting mild dependent atelectasis. No pneumothorax is seen. The skeletal structures are o steopenic. The bony thorax is grossly intact. IMPRESSION: Mild cardiomegaly with no acute cardiopulmonary abnormality. ACT 112: Negative or not required by law. Electronically signed by: German Fung M.D. 04/28/2022 9:32 AM
[2022-04-28 09:35] LABS: Basophils # (auto) 0.04 K/uL (0-0.2); Basophils % (auto) 0.9 %; Eosinophils # (auto) 0.07 K/uL (0-0.50); Eosinophils % (auto) 1.6 %; Hemoglobin 12.4 g/dl (12.0-16.0); Immature Granulocytes # (auto) 0.03 K/uL (0.01-0.20); Immature Granulocytes % (auto) 0.7 %; Lymphocytes # (auto) 1.23 K/uL (1.2-3.4); Lymphocytes % (auto) 27.4 %; Mean Corpuscular Hemoglobin 23.8 pg (25.0-34.0); Mean Corpuscular Hgb Conc 32.6 g/dL (32.0-36.0); Mean Corpuscular Volume 73.1 fL (80.0-100.0); Mean Platelet Volume 11.1 fL (9.4-12.4); Monocytes % (auto) 11.1 %; Neutrophils # (auto) 2.62 K/uL (1.40-6.50); Neutrophils % (auto) 58.3 %; Platelet Count 177 K/uL (130-400); RDW Standard Deviation 33.7 fL (36.4-46.3); White Blood Count 4.49 K/ul (4.8-10.8)
[2022-04-28] MEDS ORDERED: METOPROLOL TARTRATE 1 MG/ML VIAL IV STA (09:50)
[2022-04-28 09:58] LABS: D Dimer 290 ug/L FEU (0-500)
[2022-04-28 10:18] LABS: Alanine Aminotransferase 20 U/L (7-52); Albumin Globulin Ratio 2.2 (0.9-2); Albumin Level 4.6 gm/dl (3.4-5.0); Alkaline Phosphatase 71 U/L (34-104); Anion Gap 9 (3-11); BUN Creatinine Ratio 23.2 (10-20); Bilirubin,Total 1.7 mg/dl (0.2-1.0); Blood Urea Nitrogen 16 mg/dl (6-23); Calcium 9.3 mg/dl (8.5-10.1); Carbon Dioxide 25 mmol/L (21-32); Chloride 106 mmol/L (98-107); Creatinine Clr Calc Pharmacy 70.9 ml/min; Est GFR (African American) 103.7 ml/min; Est GFR (Non-African American) 89.4 ml/min; Globulin 2.1 gm/dl (2.5-4.0); Glucose 115 mg/dl (70-99(Fasting)); Lipase 12 U/L (11-82); Sodium 140 mmol/L (136-145); Total Protein 6.7 gm/dl (6.0-8.3); Troponin I High Sensitivity < 2.3 pg/ml (0-14)
--- NOTE | 2022-04-28 11:06 | History & Physical Report ---
Date of Service April 28, 2022 Assessment & Plan (1) Chest pain, rule out acute myocardial infarction: Plan: Suspect aborted myocardial infarction with nitroglycerin. If troponin increasing will place on IV heparin but otherwise given non-obstructive cardiac catheteriz ation previously with significant troponin rise unlikely benefit from this. Increase nitro paste to 1 inch to better control BP, on previous occasion she required ICU admission with IV drip TTE ASA already taken at home, continue 81mg PO daily Continue clopidogrel 75 mg daily Continue atorvastatin 10 mg p.o. daily Continue metoprolol succinate 12.5mg PO HS Continue atorvastatin 10mg PO HS Continue ranolazine 500mg po daily LDL 49 in July 2021 and stable prior to this. I do not see a need to recheck. HbA1C with AM labs Consult cardiology - discussed care with Dr Ricks, NPO after midnight (2) Post-cholecystectomy syndrome: Plan: Continue cholestyramine Plan VTE Prophyalxis - deferred pending serial troponins Diet - heart healthy, NPO after midnight Disposition - observation on PCU Admission and Anticipated Discharge Date Admission Date: April 28, 2022 History of Present Illness Chief Complaint: Right arm numbness and high blood pressure Primary Care Provider: Jono Faria MD Shona Townsend is a 66 year old who presents to the ER with right arm numbness and chest pain. She reports initial symptom started on Monday with chest pain, numbness in her right arm and a funny feeling in her head - it lasted for a total of 3 hours but was intermittent during that time, occurred at rest, associated nausea, diaphoresis and shortness of breath. Nitroglycerin x3 resolved he pain. She did not call her c 13 catapult operator. Today when she woke up her right arm was numb similar to her prior episodes. She again took x3 nitroglycerin and x3 aspirin. Initially she tried calling her c 13 catapult operator but when her BP went up to 187/99 this was similar to her last NSTEMI therefore she decided to come to the ER. While in the ER she had chest pain which started at 9am and lasted to around 10:20am resolving with a further x2 nitrglycerin and subsequent nitro paste. In between these episodes on Monday and Monday she has been walking around without any symptoms but no intense exercise. She had an NSTEMI in July 2021 with similar symptoms. Cardiac catheterization then showed minimal nonobstructive coronary artery disease with widely patent mid LAD stents. Suspected troponin elevation due to possible transient small branch vessel occlusion versus vasospasm or myocarditis. High-sensitivity troponin elevation on that occasion peaked at 2120 pg/ml. Since then she has had no further symptoms until this morning. In the ER she arrived with chest pain which improved with nitroglycerin 0.4 mg sublingual x2 and 0.5 inch nitroglycerin paste. EKG did not show any ST elevations, ST depressions or significant T wave inversions. Initial high-sensi tivity troponin <2.3 pg/ml. She was referred to medicine for admission and ongoing management of chest pain. Allergies Allergy/AdvReac Type Severity Reaction Status Date / Time morphine AdvReac Intermediate N/V; Verified 03/11/22 10:40 difficult to lift head Home Medications Medication Instructions Recorded Confirmed Type lifitegrast 5 % eye drops in a 1 drp ophthalmic (eye) BID 01/25/18 04/28/22 History dropperette (Xiidra) cholecalciferol (vitamin D3) 25 25 mcg PO 3XWK 09/28/20 04/28/22 History mcg (1,000 unit) capsule cholestyramine-aspartame 4 gram 4 g PO HS 04/27/21 04/28/22 History oral powder (Cholestyramine Light) dicyclomine 10 mg capsule 10 mg PO DAILY PRN abdominal 04/27/21 04/28/22 History cramping ondansetron HCl 4 mg tablet 4 mg PO Q6 PRN nausea #30 tabs 05/19/21 04/28/22 Rx ferrous sulfate 325 mg (65 mg 325 mg PO HS 08/18/21 04/28/22 History iron) tablet (iron) nitroglycerin 0.4 mg sublingual 0.4 mg sublingual Q5M #1 btl 08/19/21 04/28/22 Rx tablet azelastine 205.5 mcg (0.15 %) 2 spray intranasal HS #90 mL 09/07/21 04/28/22 Rx nasal spray levalbuterol tartrate 45 1 puff inhalation Q8H PRN 09/07/21 04/28/22 Rx mcg/actuation aerosol inhaler shortness of breath or wheezing (Xopenex HFA) #15 grams clopidogrel 75 mg tablet 75 mg PO QAM #90 tabs 07/25/22 03/09/23 Rx atorvastatin 10 mg tablet 10 mg PO HS #90 tabs 10/06/21 04/28/22 Rx metoprolol succinate 25 mg 12.5 mg PO HS #45 tabs 10/06/21 04/28/22 Rx tablet,extended release 24 hr pantoprazole 40 mg tablet,delayed 40 mg PO QAM #90 tabs 10/06/21 04/28/22 Rx release amoxicillin 500 mg tablet 2,000 mg PO ONCE #4 tabs 11/04/21 04/28/22 Rx ranolazine 500 mg tablet,extended 500 mg PO DAILY #90 tabs 12/09/21 04/28/22 Rx release,12 hr (Ranexa) mecobalamin (vitamin B12) 1,000 1,000 mcg PO DAILY 03/10/22 04/28/22 History mcg disintegrating tablet,sublingual Past Med/Surg History Medical History (Updated 04/28/22 @ 15:52 by Luke Ricks MD) Abnormal finding on mammography Abnormal liver function test Acute non-ST elevation myocardial infarction (NSTEMI) Allergic rhinitis Asymmetric SNHL (sensorineural hearing loss) CAD (coronary artery disease) S/p LAD stent Dec 2003- Follows with Dr Gregorio Not on ASA due to GI issues/ulcers- on Plavix per cardio Colon cancer screening Diverticulosis Dry eye Encounter for pre-operative examination GERD (gastroesophageal reflux disease) Well controlled and stable H/O seasonal allergies History of placement of stent in LAD coronary artery (2003) Hyperlipidemia Per cardio records Hypertension Per cardio records- pt denies Hypotension IBS (irritable bowel syndrome) Post cholecystectomy syndrome Labyrinthitis of right ear Leg length discrepancy Low iron On iron supplement Giron neuroma Right side Myocardial Infarction 2003 NSTEMI (non-ST elevated myocardial infarction) Piriformis syndrome of right side Poor balance Postoperative anemia due to acute blood loss Pre-diabetes Stable Renal calculi HX - no recent issues UTI (urinary tract infection) Vestibular neuronitis of right ear Stable - occ balance issues Surgical History History of adenoidectomy History of cardiac cath 2003 - [place] - [facility] - 1 STENT - FOLLOWS W/ DR. GREGORIO History of colonoscopy History of ERCP History of heart artery stent X 1 (2003) History of hysterectomy [place] of [place] of [place] [facility] [place] of tonsillectomy Hx laparoscopic cholecystectomy Laparoscopic Cholecystectomy Dr. Patterson 04/25/2020 Family History Family/Other Myocardial infarction Grandmother (Maternal) Heart disease Cancer Mother Heart disease Grandfather (Maternal) Gastric cancer Other Family history of diabetes mellitus Denies family history of Ovarian cancer Prostate cancer Breast cancer Colorectal cancer Social History Smoking Status: Never smoker Second Hand Exposure: No; Do You Dip or Chew Tobacco: No; Tobacco Cessation Education Requested by Patient: No Hx Alcohol Use: No Hx Substance Use: No Preferred Language: Danish Communication Ability: Effective Visual Impairment: No Limitations Hearing Ability: Normal Optical 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: No Beliefs That Will Affect Care: None marital status: Current Living Situation: Spouse current occupational status: retired How many Children do You have: 2 Other Information That Helps Us Care for You: No Feels Safe at Home: Yes Safety Concerns: Feels Safe At This Time Childhood Exposure to Second-Hand Smoke: Yes Dental Care, Regularly: Yes Physical Activity Frequency: Daily Seatbelt Use: always Sunscreen Use: Yes Assistive Devices: None Review of Systems Review of Systems: All systems reviewed & are unremarkable except as noted in HPI & below Physical Exam Constitutional: WD/WN, vitals as above Eyes: + anicteric sclerae; normal pupil size Respiratory: normal respiratory effort, lungs clear to auscultation Cardiovascular: RRR, no murmur, no edema Gastrointestinal (Abdomen): normal bowel sounds, soft, nontender, no hepatosplenomegaly Musculoskeletal: no cyanosis or clubbing, extremities motor strength 5/5 Skin: no rashes, warm and dry Neurologic: moves all extremities and awake; not confused Psychiatric: A+Ox3, euthymic affect Results & Data Results & Data ([facility]) Vital Signs (Past 12 Hours) Vital Signs Temp Pulse Pulse Resp BP Pulse Ox O2 Del Method 04/28/22 10:01 84 16 93 Room Air 04/28/22 09:46 82 16 172/107 H 95 Room Air 04/28/22 08:56 82 16 95 Room Air 04/28/22 08:55 96 Room Air 04/28/22 08:40 89 04/28/22 08:25 36.5 C 102 H 20 182/88 H 99 Room Air Laboratory Results Abnormal lab results 04/28/22 04/28/22 Range/Units 08:13 08:13 WBC 4.49 L (4.8-10.8) K/ul MCV 73.1 L (80.0-100.0) fL MCH 23.8 L (25.0-34.0) pg RDW Std Deviation 33.7 L (36.4-46.3) fL BUN/Creatinine Ratio 23.2 H (10-20) Glucose 115 H (70-99(Fasting)) mg/dl Total Bilirubin 1.7 H (0.2-1.0) mg/dl Globulin 2.1 L (2.5-4.0) gm/dl Albumin/Globulin Ratio 2.2 H (0.9-2) Diagnostic Findings SINGLE VIEW CHEST CLINICAL HISTORY: Atypical chest pain FINDINGS: An AP, portable, upright chest radiograph is compared to chest x-ray a nd chest CT dated 08/18/2021. The heart is enlarged. The pulmonary vasculature is noncongested. The lungs and pleural spaces are clear noting mild dependent atelectasis. No pneumothorax is seen. The skeletal structures are osteopenic. The bony thorax is grossly intact. IMPRESSION: Mild cardiomegaly with no acute cardiopulmonary abnormality. Medications Administered ER medications given: Nitroglycerin 0.4 mg sublingual x2 Nitroglycerin 0.5 inch paste Metoprolol tartrate 2.5 mg IV ECG Indication: chest pain Rate (beats per minute): 91 Rhythm: normal sinus Findings: + PVC Comparison ECG Date: from (August 19, 2021) Change: the following changes noted (PVCs now present, no significant T wave changes) Code Status & VTE Plan Code Status Full VTE Prophylaxis Plan VTE Prophylaxis will be ordered: Yes PG Care Time/CCT Total # of Minutes Spent Total Time Spent with Patient: Total time spent is greater than 50% in coordination of care (as documented) at patient's floor/unit and/or counseling patient: Coding Level of Care Code 00535 INT INP/OBS CARE 3/75MIN Diagnoses Chest pain, rule out acute myocardial infarction R07.9 Post-cholecystectomy syndrome K91.5
[2022-04-28 12:17] LABS: Magnesium 2.1 mg/dl (1.7-2.4); Potassium 4.5 mmol/L (3.5-5.1)
[2022-04-28 12:24] LABS: Troponin I High Sensitivity 4.4 pg/ml (0-14)
[2022-04-28 12:36] LABS: Partial Thromboplastin Ratio 0.9; Partial Thromboplastin Time 25.4 Seconds (21.0-31.0); Prothrombin Time 10.9 Seconds (9.0-12.0)
--- NOTE | 2022-04-28 12:48 | Electrocardiogram Report ---
Test Reason : Blood Pressure : / mmHG Vent. Rate : 091 BPM Atrial Rate : 091 BPM P-R Int : 176 ms QRS Dur : 082 ms QT Int : 362 ms P-R-T Axes : 034 -14 003 degrees QTc Int : 445 ms Sinus rhythm with occasional Premature ventricular complexes Possible Old Anterolateral infarct Nonspecific T wave abnormality Anterior leads Abnormal ECG When compared with ECG of 28-APR-2022 08:33, Premature ventricular complexes are now Present Confirmed by Luke Ricks ([id number]) on 04/28/2022 12:48:25 PM Referred By: REFERRED SELF Confirmed By:Luke Ricks
--- NOTE | 2022-04-28 12:50 | Electrocardiogram Report ---
Test Reason : Blood Pressure : / mmHG Vent. Rate : 093 BPM Atrial Rate : 093 BPM P-R Int : 160 ms QRS Dur : 080 ms QT Int : 354 ms P-R-T Axes : 052 001 030 degrees QTc Int : 440 ms Normal sinus rhythm Low voltage QRS Possible Old Anterior infarct Nonspecific T wave abnormality Anterior leads Abnormal ECG When compared with ECG of 19-AUG-2021 01:29, Premature atrial complexes are no longer Present Confirmed by Luke Ricks ([id number]) on 04/28/2022 12:49:52 PM Referred By: REFERRED SELF Confirmed By:Luke Ricks
[2022-04-28] MEDS ORDERED: ACETAMINOPHEN 325 MG TAB PO PRN (12:52)
[2022-04-28] MEDS ORDERED: ONDANSETRON INJ 2 MG/ML 2 ML VIAL IV PRN (12:52)
[2022-04-28] MEDS: NITROGLYCERIN 2% OINTMENT 30GM TUBE EXT SCH ×2 (13:13→18:43)
--- NOTE | 2022-04-28 14:02 | XCELERA ---
[id number]
--- NOTE | 2022-04-28 15:30 | Cardiology Consultation ---
Date of Consultation April 28, 2022 Assessment & Plan (1) Chest pain, rule out acute myocardial infarction: (2) History of coronary artery disease: (3) History of placement of stent in LAD coronary artery: Plan 66 woman with known CAD (LAD stent 2003) and unexplained non-STEMI July 2021 with only trivial atherosclerosis on cath at that time, who now presents with symptoms identical to those she noted last summer but without initial troponin elevation. If her symptoms are indeed an anginal equivalent, the timing would suggest crescendo angina with a potential imminent acute coronary syndrome, but ECG or troponin evidence of this is lacking. Nonetheless, would not be comfortable performing stress test in the context of potential evolving acute coronary syndrome. At this point, would observe overnight while continuing aspirin and clopidogrel, adding heparin only if her troponin shows a further increase or her symptoms increase and subsequent ECG showed dynamic changes. Would recommend temporarily increasing her metoprolol succinate from 12.5 mg daily to 25 mg twice daily given her tendency to hypertension as well as a higher than optimal heart rate in the context of potential angina (90 bpm currently). Continue statin long-term. Continue Nitropaste for now, would not immediately change to IV nitroglycerin given uncertainty as to whether this is an anginal equivalent, but if she has further troponin elevation and/or ECG changes with ongoing symptoms would consider intravenous nitroglycerin to allow titration. Depending upon clinical course overnight with serial enzymes and follow-up ECG, decide on stress study versus cardiac catheterization tomorrow. She is followed from a cardiology standpoint routinely by Dr. Gregorio, would recommend seeking his input when more data is available tomorrow. History of Present Illness Reason for Consultation: Chest pain, rule out acute coronary syndrome Requesting Physician: Derian Matute MD Attending Physician: Derian Matute MD History of Present Illness 66-year-old woman with history of coronary artery disease (LAD stent 2003) who has had several episodes of chest/neck/back discomfort identical to symptoms she experienced July 2021 at the time of a non-ST elevation myocardial infarction. At the time of NSTEMI last summer, she had chest/neck/back symptoms with right arm paresthesias, non-dynamic ECG but troponin elevated to 0, cardiac cathete rization only showed only 20% LAD stenosis. Etiology of her non-STEMI remains unclear, speculated as to transient small branch vessel occlusion versus vasospasm versus myocarditis. Echocardiogram showed a small area of inferobasal hypokinesis with normal LV systolic function. Her clopidogrel was continued, aspirin added back (she was off this due to prior GI bleed), statin continued, and ranolazine added to her regimen. She is generally active and symptom-free but has been sedentary for a time, 6 days ago she attempted to ride on her exercise bicycle for the first time in a while and felt very fatigued and quit after 15 minutes. 3 days ago she awoke with moderately severe neck and back pain with less severe chest discomfort, a feeling of breathlessness, and a "numbness" type paresthesia down her right arm. She also noted profound fatigue, having difficulty even walking up a set of stairs, as well as moderate hypertension (systolic blood pressure in the 160 mmHg range, her baseline is in the 120 mmHg range). She took 3 sublingual nitroglycerin and rested, but the symptoms lasted for about a half a day before abating completely. She notes that the symptoms were identical to those she had at the time of her NSTEMI last summer. Today, she had recurrence of neck back/chest discomfort with right arm paresthesia, again identical to her prior NSTEMI symptoms, she again took mu ltiple nitroglycerins sublingually and felt some improvement but not resolution of her symptoms. She became concerned because her home BP marcelo to 187/106 mmHg range, she reported to the emergency department where nitropaste was added with further improvement in symptoms. Her neck/back/chest pain has resolved but she still has a mild right arm paresthesia. ECG was again nonspecific with no dynamic ST or T wave abnormalities. Initial troponin was undetectable (less than 2.3), a second troponin was 4.4. Echocardiogram today shows small inferobasal area of hypokinesis with preserved LV systolic function, no change compared with last year's study. At the time of my evaluation, she had only mild right arm paresthesia, but otherwise felt well. Allergies Allergy/AdvReac Type Severity Reaction Status Date / Time morphine AdvReac Intermediate N/V; Verified 03/11/22 10:40 difficult to lift head Home Medications Medication Instructions Recorded Confirmed Type lifitegrast 5 % eye drops in a 1 drp ophthalmic (eye) BID 01/25/18 04/28/22 History dropperette (Xiidra) cholecalciferol (vitamin D3) 25 25 mcg PO 3XWK 09/28/20 04/28/22 History mcg (1,000 unit) capsule cholestyramine-aspartame 4 gram 4 g PO HS 04/27/21 04/28/22 History oral powder (Cholestyramine Light) dicyclomine 10 mg capsule 10 mg PO DAILY PRN abdominal 04/27/21 04/28/22 History cramping ondansetron HCl 4 mg tablet 4 mg PO Q6 PRN nausea #30 tabs 05/19/21 04/28/22 Rx ferrous sulfate 325 mg (65 mg 325 mg PO HS 08/18/21 04/28/22 History iron) tablet (iron) nitroglycerin 0.4 mg sublingual 0.4 mg sublingual Q5M #1 btl 08/19/21 04/28/22 R x tablet azelastine 205.5 mcg (0.15 %) 2 spray intranasal HS #90 mL 09/07/21 04/28/22 Rx nasal spray levalbuterol tartrate 45 1 puff inhalation Q8H PRN 09/07/21 04/28/22 Rx mcg/actuation aerosol inhaler shortness of breath or wheezing (Xopenex HFA) #15 grams clopidogrel 75 mg tablet 75 mg PO QAM #90 tabs 09/13/21 04/28/22 Rx atorvastatin 10 mg tablet 10 mg PO HS #90 tabs 10/06/21 04/28/22 Rx metoprolol succinate 25 mg 12.5 mg PO HS #45 tabs 10/06/21 04/28/22 Rx tablet,extended release 24 hr pantoprazole 40 mg tablet,delayed 40 mg PO QAM #90 tabs 10/06/21 04/28/22 Rx release amoxicillin 500 mg tablet 2,000 mg PO ONCE #4 tabs 11/04/21 04/28/22 Rx ranolazine 500 mg tablet,extended 500 mg PO DAILY #90 tabs 12/09/21 04/28/22 Rx release,12 hr (Ranexa) mecobalamin (vitamin B12) 1,000 1,000 mcg PO DAILY 03/10/22 04/28/22 History mcg disintegrating tablet,sublingual Patient History Medical History (Updated 04/28/22 @ 15:52 by Luke Ricks MD) Abnormal finding on mammography Abnormal liver function test Acute non-ST elevation myocardial infarction (NSTEMI) Allergic rhinitis Asymmetric SNHL (sensorineural hearing loss) CAD (coronary artery disease) S/p LAD stent Dec 2003- Follows with Dr Gregorio Not on ASA due to GI issues/ulcers- on Plavix per cardio Colon cancer screening Diverticulosis Dry eye Encounter for pre-operative examination GERD (gastroesophageal reflux disease) Well controlled and stable H/O seasonal allergies History of placement of stent in LAD coronary artery (2003) Hyperlipidemia Per cardio records Hypertension Per cardio records- pt denies Hypotension IBS (irritable bowel syndrome) Post cholecystectomy syndrome Labyrinthitis of right ear Leg length discrepancy Low iron On iron supplement Giron neuroma Right side Myocardial Infarction 2003 NSTEMI (non-ST elevated myocardial infarction) Piriformis syndrome of right side Poor balance Postoperative anemia due to acute blood loss Pre-diabetes Stable Renal calculi HX - no recent issues UTI (urinary tract infection) Vestibular neuronitis of right ear Stable - occ balance issues Surgical History History of adenoidectomy History of cardiac cath 2003 - [facility] - 1 STENT - FOLLOWS W/ DR. GREGORIO History of colonoscopy History of ERCP History of heart artery stent X 1 (2003) History of hysterectomy History of removal of cyst Rt thumb - 03/06/2019 [facility] [place] History of tonsillectomy Hx laparoscopic cholecystectomy Laparoscopic Cholecystectomy Dr. Patterson 04/25/2020 Family History Family/Other Myocardial infarction Grandmother (Maternal) Heart disease Cancer Mother Heart disease Grandfather (Maternal) Gastric cancer Other Family history of diabetes mellitus Denies family history of Ovarian cancer Prostate cancer Breast cancer Colorectal cancer Social History Smoking Status: Never smoker Second Hand Exposure: No; Do You Dip or Chew Tobacco: No; Tobacco Cessation Education Requested by Patient: No Hx Alcohol Use: No Hx Substance Use: No Preferred Language: [place] Citizen Communication Ability: Effective Visual Impairment: No Limitations Hearing Ability: Normal 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 Normal habitus. BP 129/80 mmHg. Pulse 90 bpm and regular. Skin: no ecchymoses or generalized lesions. HEENT: unremarkable. Neck: no JVD or carotid bruits. Lungs: clear. Cardiac: regular rhythm, normal S1 and S2, no murmur or gallop. Abdomen: benign. Extremities: no edema, pulses intact. Neurologic: normal affect, nonfocal. Results & Data ([facility]) Laboratory Results Troponins as noted in HPI. Normal electrolytes, BUN 16, creatinine 0.69. Normal CBC. Diagnostic Findings ECG showed sinus rhythm, possible old anterior infarct, nonspecific anterior T wave flattening, unchanged from 08/19/2021 ECG. A second ECG showed sinus rhythm with occasional PVC, otherwise identical to ECG from earlier today. As noted, echocardiogram showed EF 55 to 60% with small area of inferobasal hypokinesis, mild to moderate AI/mild to moderate MR/trace TR with normal RVSP. This was unchanged from a 08/18/2021 study. Chest x-ray showed mild cardiomegaly with no acute abnormalities. PG Care Time/CCT Total # of Minutes Spent Total Time Spent with Patient: Total time spent is greater than 50% in coordination of care (as documented) at patient's floor/unit and/or counseling patient: Coding Level of Care Code 47567 IN/OBS CONSULT LVL 4,60M Diagnoses Chest pain, rule out acute myocardial infarction R07.9 History of coronary artery disease Z86.79 History of placement of stent in LAD coronary artery Z95.5
[2022-04-28] MEDS: [UNRECOGNIZED DRUG - REMARK] SCH ×2 (17:21→23:51)
[2022-04-28] MEDS: FERROUS SULFATE 325 MG TAB PO SCH (20:01)
[2022-04-28] MEDS: CHOLESTYRAMINE LIGHT 4 GM PKT PO SCH (20:02)
[2022-04-28] MEDS ORDERED: ATORVASTATIN 10 MG TAB PO SCH (21:00)
[2022-04-28] MEDS ORDERED: METOPROLOL SUCC 25MG EXT REL TAB PO SCH ×2 (21:00)
[2022-04-29] MEDS: NITROGLYCERIN 2% OINTMENT 30GM TUBE EXT SCH ×3 (00:52→13:35)
[2022-04-29 06:28] LABS: Hematocrit (blood only) 36.2 % (37.0-47.0); Hemoglobin 11.8 g/dl (12.0-16.0); Mean Corpuscular Hgb Conc 32.6 g/dL (32.0-36.0); Mean Corpuscular Volume 73.7 fL (80.0-100.0); Mean Platelet Volume 10.2 fL (9.4-12.4); Platelet Count 165 K/uL (130-400); RDW Standard Deviation 34.5 fL (36.4-46.3); Red Blood Count 4.91 M/uL (4.20-5.40); White Blood Count 5.39 K/ul (4.8-10.8)
[2022-04-29 06:37] LABS: Estimated Average Glucose 114 mg/dl; Hemoglobin A1C 5.6 % (4.5-5.6)
[2022-04-29 06:50] LABS: BUN Creatinine Ratio 22.7 (10-20); Creatinine Clr Calc Pharmacy 65.1 ml/min; Est GFR (African American) 94.9 ml/min; Est GFR (Non-African American) 81.9 ml/min; Potassium 4.1 mmol/L (3.5-5.1)
[2022-04-29] MEDS: CYANOCOBALAMIN (B-12) 500 MCG TABLET PO SCH (08:40)
[2022-04-29] MEDS: PANTOprazole 40 MG TAB PO SCH (08:40)
[2022-04-29] MEDS: [UNRECOGNIZED DRUG - REMARK] SCH ×3 (08:40→22:50)
[2022-04-29] MEDS: ASPIRIN 81 MG ECTAB PO SCH (08:40)
[2022-04-29] MEDS: CLOPIDOGREL BISULFATE 75 MG TAB PO SCH (08:40)
[2022-04-29] MEDS: RANOLAZINE 500 MG ER TAB PO SCH (08:41)
[2022-04-29] MEDS ORDERED: MIDAZOLAM HCL 1 MG/ML 2ML VIAL ONE (10:59)
[2022-04-29] MEDS ORDERED: niCARdipine HCL INJ 2.5 MG/ML 10 ML AMP ONE (10:59)
[2022-04-29] MEDS ORDERED: HEPARIN (PORCINE) 1000 UNIT/ML 10 ML (CATH LAB USE ONLY) ONE (10:59)
[2022-04-29] MEDS ORDERED: fentaNYL citrate 100 MCG/2 ML VIAL ONE (10:59)
[2022-04-29] MEDS ORDERED: NITROGLYCERIN/D5W 100MCG/ML 20ML SYR ONE (11:00)
--- NOTE | 2022-04-29 11:12 | Pre Anesthesia Assessment ---
Date of Service April 29, 2022 Pre Sedation Assessment Vital Signs Temp Pulse Pulse Resp BP BP Pulse Ox 04/29/22 10:12 70 16 114/83 95 04/29/22 08:12 36.7 C 72 19 118/81 94 04/29/22 02:34 36.7 C 69 18 120/67 99 04/28/22 23:38 95 H 04/28/22 22:30 36.5 C 77 18 118/74 92 04/28/22 19:17 36.7 C 91 H 18 111/75 95 04/28/22 15:24 36.9 C 91 H 16 129/80 96 04/28/22 14:00 36.8 C 80 14 154/89 H 98 04/28/22 13:21 94 H 04/28/22 13:19 88 16 164/99 H 97 04/28/22 12:52 36.8 C 89 16 187/99 H 96 04/28/22 12:52 04/28/22 12:15 148/90 H 04/28/22 12:15 86 22 97 04/28/22 12:00 84 18 04/28/22 12:00 157/88 H 04/28/22 11:45 89 23 04/28/22 11:45 165/95 H 04/28/22 11:30 89 25 H 98 04/28/22 11:30 169/97 H 04/28/22 11:15 159/105 H 04/28/22 11:15 85 23 98 Pulse Ox O2 Del Method O2 Del Method 04/29/22 10:12 Room Air 04/29/22 08:12 Room Air 04/29/22 02:34 Room Air 04/28/22 23:38 04/28/22 22:30 Room Air 04/28/22 19:17 Room Air 04/28/22 15:24 Room Air 04/28/22 14:00 Room Air 04/28/22 13:21 04/28/22 13:19 Room Air 04/28/22 12:52 Room Air 04/28/22 12:52 96 Room Air 04/28/22 12:15 04/28/22 12:15 04/28/22 12:00 04/28/22 12:00 04/28/22 11:45 04/28/22 11:45 03/09/23 11:30 Room Air 04/28/22 11:30 04/28/22 11:15 04/28/22 11:15 Room Air Cardiovascular RRR, no murmur, no edema Respiratory normal respiratory effort, lungs clear to auscultation Pre-Sedation Airway Assessment Smoking Status: Never smoker Hx Sleep Apnea: No Hx Difficult Intubation: No Short, Thick Neck: No Thyromental Distance: > or= 3.5 Finger Breadths Oral Cavity: + WNL Mallampati Class: II ASA: ASA2 Notes The planned sedation has been discussed with the patient. Informed Consent was obtained. I have identified the patient, determined the appropriateness of sedation and have assessed the patient immediately prior to the procedure. All medicine(s) and interventions are by my order.
[2022-04-29] MEDS ORDERED: ADENOSINE IV SOLN 3 MG/ML 20 ML VIAL IV ONE (11:36)
--- NOTE | 2022-04-29 12:41 | Post Anesthesia Assessment ---
Date of Service April 29, 2022 Post Sedation Assessment Vital Signs Temp Pulse Pulse Resp BP BP Pulse Ox 04/29/22 12:25 78 20 139/83 97 04/29/22 10:12 70 16 114/83 95 04/29/22 08:12 36.7 C 72 19 118/81 94 04/29/22 02:34 36.7 C 69 18 120/67 99 04/28/22 23:38 95 H 04/28/22 22:30 36.5 C 77 18 118/74 92 04/28/22 19:17 36.7 C 91 H 18 111/75 95 04/28/22 15:24 36.9 C 91 H 16 129/80 96 04/28/22 14:00 36.8 C 80 14 154/89 H 98 04/28/22 13:21 94 H 04/28/22 13:19 88 16 164/99 H 97 04/28/22 12:52 36.8 C 89 16 187/99 H 96 04/28/22 12:52 Pulse Ox O2 Del Method O2 Del Method 04/29/22 12:25 Room Air 04/29/22 10:12 Room Air 04/29/22 08:12 Room Air 04/29/22 02:34 Room Air 04/28/22 23:38 04/28/22 22:30 Room Air 04/28/22 19:17 Room Air 04/28/22 15:24 Room Air 04/28/22 14:00 Room Air 04/28/22 13:21 04/28/22 13:19 Room Air 04/28/22 12:52 Room Air 04/28/22 12:52 96 Room Air Recovery Score Activity: Moves 4 extremities Respiration: Deep Breath/Cough Circulation: +/-20% PreAnes Value Consciousness: Fully Awake Oxygen Saturation: > 92% On Room Air Discharge Sedation Level of Care: Fast Track Phase II Post Sedation Plan On clinical assessment, the patient appears to have tolerated the sedation without complications. Patient is recovering as anticipated. Patient will continue to be monitored by nursing and may be discharged when sedation discharge criteria are met per below protocol. Upon Completions of procedure up to 15 minutes continue every 5 minute vital signs and the P.A.R. score; then discharge to a Phase I or Fast Track to Phase II per the following guidelines: * Discharge Patient to appropriate Phase II area if PAR is 8 or greater or return to pre- procedure baseline. The post - procedure orders will be as directed. * If PAR score is less than 8 or not return to pre-procedure baseline then patient will follow Phase I monitoring till PAR is reached for Phase II. The Phase I may be done in procedure room or may call to secure a Phase I area. * If naloxone or flumazenil are used for reversal, hold in Phase I for continued monitoring from when last reversal dose was given for a minimum of 60 minutes or longer pending the nurse and/or physician discretion of patient condition before discharge to Phase II. Please call the Sedation Physician to re-evaluate and complete post-note for discharge to Phase II area. Do NOT discharge from procedure sedation or Phase 1 until post- sedation evaluation note is complete by procedure /sedation MD Sedation Discharge Instructions to be given to the patient at discharge to home. [facility] Procedure Codes (Charges) Indication for Procedure Indication for procedure: angina CCS 4 Sedation/Anesthesia Procedure 1: Sedation/Anesthesia: 37853 Mod Sedation by the same physician;Init15 Min Child Age 5 & Up (Initial 15 min) Total Sedation Time (minutes): 55 Procedure 2: Sedation/Anesthesia: 99261 Mod Sedation by the same physician; Ea [id number] Minutes (Additional 40 min) Total Sedation Time (minutes): 55
--- NOTE | 2022-04-29 12:43 | Cardiac Catheterization ---
ACC Data: In Home Aide Cardiac Status Clinical evaluation leading to the procedure CAD Presenation: Unstable angina Anginal Classification: CCS IV Heart Failure: No Cardiogenic Shock within 24 Hours: No Cardiac Arrest within 24 Hours: No Imaging Studies Past 6 Months: No Stress Studies Past 6 Months: No Coronary Anatomy Dominant: Right Left Main (% Stenosis): Normal LAD (% Stenosis): Distal (In-stent restenosis 50 to 70%) D1 (% Stenosis): Normal D2 (% Stenosis): Normal Circumflex (% Stenosis): Normal OM1 (% Stenosis): Normal OM2 (% Stenosis): Normal RCA (% Stenosis): Normal R PDA (% Stenosis): Normal R PL1 (% Stenosis): Normal Diagnostic Physicians Name: Elian Kay MD, PhD Closure Device Percutaneous Entry Location: Radial Closure Device: Radial Band Recommendations: Medical Therapy and/or Counseling and PCI without planned CABG PCI Indication: Unstable Angina Lesion Segment Name: Distal LAD in-stent restenosis Culprit Artery: Yes Stenosis Prior to Rx (%): 50 to 70% Chronic Total Occlusion: No FFR: Yes Ratio: greater than 0.75% (0.79) Pre-Procedure RAMY Flow: 2 Previously Treated Lesion: Yes Lesion Complexity: Non-High/Non-C Lesion Length (mm): 24 Thrombus Present: No Bifurcation Lesion: No Guidewire Across Lesion: Yes Intraprocedure Events Significant Disection: No Perforation: No Cardiac Cath Procedure Full Procedure Date April 29, 2022 Pre-Procedure Diagnosis Pre-Procedure Diagnosis: Angina (CCS 4) AUC Score AUC Score: 8 Post-Procedure Diagnosis Post-Procedure Diagnosis: Severe CAD Procedure(s) Performed Procedure(s) Performed: Coronary Angiography, Drug Eluting Stent and Fractional Flow [place] [employer] Manager Elian Kay MD, PhD Estimated Blood Loss Estimated Blood Loss: 10 ml Medication(s) Medication(s): Adenosine, Fentanyl, Heparin, Lidocaine 1%, Nicardipine, Nitroglycerin and Versed Summary of Findings Brief description: Patient was brought to the cardiac catheterization suite where she was shaved and prepped in a sterile fashion. Sedated using IV Versed and fentanyl. Soft tissues of the right wrist were anesthetized using 2 mL of 1% Xylocaine. The right radial artery was accessed with a modified Seldinger technique and a 6 Thai radial artery glide sheath was placed. Patient was provided anticoagulation with IV heparin and antispasmodics including nicardipine and nitroglycerin. All catheters were advanced and exchanged over a 0.035 J-tip wire. Left coronary angiography in orthogonal views with a 5 Thai [place] 4 diagnostic catheter. Right coronary angiography in orthogonal views with a 5 Thai JR4 diagnostic catheter. Diagnostic catheters were removed and we decided to proceed with FFR analysis of the LAD ACT was checked and additional heparin provided to maintain therapeutic ACT. A 5 Thai JL 3.5 guide catheter was used to engage the left main coronary. Through this, a BMW universal guidewire was advanced and positioned distally in the LAD. Then, the Naavus catheter was advanced and positioned just distal to the guide catheter tip. The system was flushed with normal saline and the pressures were equalized. The catheter was then advanced and positioned distal to the lesion in the LAD. Adenosine was infused at 140 mcg/kg/min for 2 minutes. Continuous FFR was monitored and the peak FFR was measured. The Naavus catheter was then removed. Decision was made to proceed with PCI of the LAD. We exchanged the 5 Thai guide catheter for a 6 Thai JL 3.5 guide catheter. The BMW universal wire was re-inserted and positioned distally in the LAD. Predilatation for in-stent restenosis was performed multiple times within the stented segment using a 2.25 x 12 mm noncompliant balloon inflated to 22 corinne (2.45 millimeter final diameter). The balloon was then removed and angiography was performed. A 2.5 x 30 mm Wallace stent was then advanced and positioned within the previous stents extending just beyond the distal edge and just proximal to the proximal edge. This was then deployed at 12 corinne. The stent balloon was then removed and inspecting machine adjuster angiography performed. Finally, the proximal portion of the new stent was postdilated using a two 5 x 12 mm noncompliant balloon at 15 corinne giving a final diameter of 2.6 mm. This balloon was then removed. The guidewire was removed and final angiographic evaluation was performed. The guide catheter was removed. Radial artery sheath was removed. Hemostasis was obtained using the TR band. Patient was hemodynamically stable and asymptomatic. She was returned to the recovery area. This ended the case. Coronary angiography, FFR, and PCI findings: LMT: Large-caliber vessel bifurcating into LAD and circumflex. No disease. LAD: Large caliber vessel providing a medium caliber long first diagonal and a large caliber long second diagonal. The distal LAD just reaches the apex and is relatively small in diameter as it approaches the apex. Proximal LAD has no more than mild luminal irregularities. The mid LAD appears normal. Then, just after the ostium of the second diagonal the early distal vessel has mild less than 20% stenosis leading up to a long stented segment. The stented segment has mild in-stent restenosis except for 2 focal hazy areas which appear to be up to 50 to 70% narrowed. Beyond the distal edge of the stent the [place] LAD has no more than mild luminal irregularities and tapers quickly as it becomes tortuous. There appears to be reduced flow velocity through the stented segment and the distal LAD (RAMY II-2.5) LCx: This is large caliber and nondominant. It travels in the AV groove giving a medium caliber branching OM1 and then terminating as a large caliber OM 2. The branch vessels are tortuous. The circumflex and its branches have no angiographically evident disease. RCA: This is a large caliber and dominant vessel arising from the right coronary sinus of Valsalva. Distally it bifurcates into a large PDA and a large multi branching posterolateral. There is no more than mild luminal irregularities in the RCA and its branches. FFR of LAD in-stent restenosis: 0.79, therefore, this is considered hemodynamically significant PCI of LAD in-stent restenosis: 0% residual stenosis post PCI No evidence of dissection or perforation post PCI RAMY-3 flow post PCI Summary: 1. Angiographically borderline in-stent restenosis of the LAD proven by FFR analysis to be hemodynamically significant. 2. Successful PCI of the LAD with implantation of a long drug-eluting stent 3. No angiographically significant disease in the remainder of the coronaries. 4. Recommend dual antiplatelet therapy with aspirin and Plavix for at least 1 to 2 years and preferably indefinitely. 5. Guideline directed medical therapy for secondary prevention of coronary disease will include; high intensity statin therapy, beta-jose, plus or minus KEYANA inhibitor/ARB. We will also increase her antianginal regimen. Blood pressures control has been an issue and she has had spikes in her blood pressure. Therefore, also changing her blood pressure regimen. Hemodynamics Rest Ao:: 102/80 mmHg, mean 92 mmHg Final Ao: 162/95 mmHg, mean 121 mmHg LV: Not performed Recommendations Recommendations: Medical Therapy and/or Counseling and PCI without planned CABG Radiation Exposure (mGy) 1195 mGy, fluoroscopy time 15.3 minutes Contrast (mls) 150 ml Anesthesia 1 mg IV Versed, 25 mcg IV fentanyl Procedural Complication(s) None Disposition Recovery Room\PACU I attest to the content of the Intraoperative Record and any orders documented therein. Any exceptions are noted below. [facility] Card Cath Procedure Codes Cardiac Catheterization Procedure 1: Cardiovascular Cath Procedures: 55787 Coronaries Procedure 2: Cardiovascular Cath Procedures: 46957 (Doppler) Pressure Wire Procedure 3: Cardiovascular Cath Procedures: 74596 Pharmacologic agent admin & hemodynamics Moderate Sedation Procedure 1: Sedation/Anesthesia: 32956 Mod Sedation by the same physician;Init15 Min Child Age 5 & Up (Initial 15-minute (total 55 minutes)) Procedure 2: Sedation/Anesthesia: 90545 Mod Sedation by the same physician; Ea [id number] Minutes (Additional 40-minute (total 55 minutes)) Stenting Procedure 1: Cardiovascular Stent Procedures: 76229 Perc transcatheter placement of intracoronary stent(s), with ang (LAD) PG Care Time/CCT Total # of Minutes Spent Total Time Spent with Patient: Total time spent is greater than 50% in coordination of care (as documented) at patient's floor/unit and/or counseling patient:
[2022-04-29] MEDS: METOPROLOL SUCC 25MG EXT REL TAB PO SCH (20:11)
[2022-04-29] MEDS: CHOLESTYRAMINE LIGHT 4 GM PKT PO SCH (20:11)
[2022-04-29] MEDS: FERROUS SULFATE 325 MG TAB PO SCH (20:11)
--- NOTE | 2022-04-29 21:12 | Hospitalist Progress Note ---
Date of Service April 29, 2022 Assessment & Plan (1) Chest pain, rule out acute myocardial infarction: Plan: Patient here with unstable angina. Suspect aborted myocardial infarction with nitroglycerin. If troponin increasing will place on IV heparin but otherwise given non-obstructive cardiac catheterization previously with significant troponin rise unlikely benefit from this. Increase nitro paste to 1 inch to better control BP, on previous occasion she required ICU admission with IV drip TTE ASA already taken at home, continue 81mg PO daily Continue clopidogrel 75 mg daily Continue atorvastatin 10 mg p.o. daily Continue metoprolol succinate 12.5mg PO HS Continue atorvastatin 10mg PO HS Continue ranolazine 500mg po daily LDL 49 in July 2021 and stable prior to this. I do not see a need to recheck. HbA1C with AM labs Consult cardiology - S/P cardiac cath. 1. Angiographically borderline in-stent restenosis of the LAD proven by FFR analysis to be hemodynamically significant. 2. Successful PCI of the LAD with implantation of a long drug-eluting stent 3. No angiographically significant disease in the remainder of the coronaries. 4. Recommend dual antiplatelet therapy with aspirin and Plavix for at least 1 to 2 years and preferably indefinitely. 5. Guideline directed medical therapy for secondary prevention of coronary disease will include; high intensity statin therapy, beta-jose, plus or minus KEYANA inhibitor/ARB. We will also increase her antianginal regimen. Blood pressures control has been an issue and she has had spikes in her blood pressure. Therefore, also changing her blood pressure regimen. Will monitor patient overnight. 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 She tolerated her cardiac cath. She has no new complaints. Review of Systems Review of Systems: All systems reviewed & are unremarkable except as noted in HPI & below Physical Exam Constitutional: WD/WN, vitals as above Eyes: PERRL, conjunctivae normal, anicteric sclerae ENMT: external ear and nose normal, oropharynx normal Neck: trachea midline, no thyromegaly Respiratory: normal respiratory effort, lungs clear to auscultation Cardiovascular: RRR, no murmur, no edema Results & Data Results & Data ([facility]) Vital Signs (Past 12 Hours) Vital Signs Temp Pulse Pulse Resp BP BP BP 04/29/22 19:33 36.9 C 90 18 109/76 04/29/22 18:14 94 H 18 126/83 04/29/22 17:14 36.7 C 96 H 18 106/70 04/29/22 16:14 84 18 111/77 04/29/22 15:14 76 18 109/76 04/29/22 14:14 87 18 113/80 04/29/22 13:44 79 18 143/72 H 04/29/22 13:14 36.3 C L 66 18 141/81 H 04/29/22 12:40 69 20 146/90 H 04/29/22 12:25 78 20 139/83 04/29/22 10:12 70 16 114/83 Pulse Ox O2 Del Method 04/29/22 19:33 94 Room Air 04/29/22 18:14 95 Room Air 04/29/22 17:14 94 Room Air 04/29/22 16:14 94 Room Air 04/29/22 15:14 93 Room Air 04/29/22 14:14 04/29/22 13:44 97 Room Air 04/29/22 13:14 96 Room Air 04/29/22 12:40 96 Room Air 04/29/22 12:25 97 Room Air 04/29/22 10:12 95 Room Air PG Care Time/CCT Total # of Minutes Spent Total Time Spent with Patient: Total time spent is greater than 50% in coordination of care (as documented) at patient's floor/unit and/or counseling patient: Coding Level of Care Code 72770 SUB INP/OBS CARE 2/35MIN Diagnoses Chest pain, rule out acute myocardial infarction R07.9 Post-cholecystectomy syndrome K91.5
[2022-04-30 06:13] LABS: Basophils # (auto) 0.02 K/uL (0-0.2); Basophils % (auto) 0.4 %; Eosinophils # (auto) 0.12 K/uL (0-0.50); Eosinophils % (auto) 2.3 %; Hematocrit (blood only) 36.4 % (37.0-47.0); Hemoglobin 11.8 g/dl (12.0-16.0); Immature Granulocytes # (auto) 0.02 K/uL (0.01-0.20); Immature Granulocytes % (auto) 0.4 %; Lymphocytes # (auto) 1.03 K/uL (1.2-3.4); Lymphocytes % (auto) 19.5 %; Mean Corpuscular Hgb Conc 32.4 g/dL (32.0-36.0); Mean Corpuscular Volume 74.1 fL (80.0-100.0); Mean Platelet Volume 10.7 fL (9.4-12.4); Monocytes # (auto) 0.67 K/uL (0.11-0.59); Monocytes % (auto) 12.7 %; Neutrophils # (auto) 3.42 K/uL (1.40-6.50); Neutrophils % (auto) 64.7 %; Platelet Count 181 K/uL (130-400); RDW Standard Deviation 34.6 fL (36.4-46.3); Red Blood Count 4.91 M/uL (4.20-5.40); White Blood Count 5.28 K/ul (4.8-10.8)
[2022-04-30 06:31] LABS: BUN Creatinine Ratio 27.1 (10-20); Calcium 8.8 mg/dl (8.5-10.1); Creatinine Clr Calc Pharmacy 69.7 ml/min; Est GFR (African American) 103.2 ml/min; Potassium 4.1 mmol/L (3.5-5.1)
[2022-04-30] MEDS: [UNRECOGNIZED DRUG - REMARK] SCH (08:27)
[2022-04-30] MEDS: ASPIRIN 81 MG ECTAB PO SCH (08:27)
[2022-04-30] MEDS: CLOPIDOGREL BISULFATE 75 MG TAB PO SCH (08:28)
[2022-04-30] MEDS: METOPROLOL SUCC 25MG EXT REL TAB PO SCH (08:28)
[2022-04-30] MEDS: CYANOCOBALAMIN (B-12) 500 MCG TABLET PO SCH (08:28)
[2022-04-30] MEDS: PANTOprazole 40 MG TAB PO SCH (08:29)
[2022-04-30] MEDS: RANOLAZINE 500 MG ER TAB PO SCH (08:29)
[2022-04-30] MEDS ORDERED: ATORVASTATIN 20 MG TAB PO SCH (09:00)
[2022-04-30] MEDS ORDERED: ISOSORBIDE MONO EXTENDED REL 30 MG TABCR PO SCH (09:00)
== END 2022-04-30 10:15 | disposition home or self-care (01) ==
LOC: ED 08:20 → 2E 08:20 → SUATTDRO 11:07 → 2E 12:30
PROC: CLB.CCO (2022-04-29 12:00)